=== PATIENT | male | born 1950 | race American Indian/Alaskan Native ===

== ENCOUNTER 2017-12-27 20:26 | Emergency (ER) | payer MEDICARE ==
[2017-12-27 21:19] LABS: Basophils % (Auto) 0.3 % (0.0-1.8); Eosinophils % (Auto) 0.2 % (0.0-4.3); Hematocrit 35.2 % (35.5-45.6); Hemoglobin 11.9 gm/dl (11.8-15.2); Lymphocytes # (Auto) 1.1 K/mm3 (1.2-5.4); Lymphocytes % (Auto) 21.6 % (13.4-35.0); Mean Corpuscular HGB Conc 34 % (32-34); Mean Corpuscular Hemoglobin 27 pg (28-32); Mean Corpuscular Volume 80 fl (84-94); Monocytes # (Auto) 0.6 K/mm3 (0.0-0.8); Monocytes % (Auto) 11.9 % (0.0-7.3); Platelet Count 156 K/mm3 (140-440); Red Cell Distribution Width 15.1 % (13.2-15.2)
[2017-12-27 21:26] LABS: BUN/Creatinine Ratio 17; Blood Urea Nitrogen 10 mg/dL (9-20); Hemolysis Index 1
[2017-12-27 21:31] LABS: Bilirubin,Urine NEG (Negative); Blood,Urine NEG (Negative); Color,Urine Yellow (Yellow); Mucus,Urine 2+ /HPF
[2017-12-27 21:43] LABS: Amphetamine Screen,Urine PRESUMPTIVE NEGATIVE; Benzodiazepines Screen,Urine PRESUMPTIVE NEGATIVE; Cannabinoid Screen,Urine PRESUMPTIVE NEGATIVE; Cocaine Screen,Urine PRESUMPTIVE NEGATIVE; Methadone Screen,Urine PRESUMPTIVE NEGATIVE; Opiate Screen,Urine PRESUMPTIVE NEGATIVE
--- NOTE | 2017-12-28 05:29 | Emergency Department Report ---
ED Medical Clearance HPI - General Chief complaint: Medical Clearance Stated complaint: MEDICAL EVAL Time Seen by Provider: 12/28/17 05:09 Source: patient, family Mode of arrival: Ambulatory - History of Present Illness Initial comments: 67-year-old man with history of schizophrenia, is brought in by family members with report that he has not been taking his medication over the past several days, because his sister is his education provider, and she herself has been hospitalized, and no one has been given patient his medication in the meantime. He has become increasingly agitated and disruptive, but not frankly psychotic. He has been accepted at [facility], pending medical clearance. He is not having any acute symptoms, but incidentally notes that these been having some fresh blood in his stool, primarily on wiping. Other past medical history is significant for type 2 diabetes, controlled with medication, as well as hypercholesterolemia, and hypertension. He also has a history of coronary artery disease, but this is relatively stable, with his myocardial infarction occurring approximately 9 years ago, and patient underwent bypass surgery approximately 3 years ago. He says he needs a pacemaker, but this has not yet been scheduled with his cooling pan tender. He has not been having any pains, no palpitations or flutter, no shortness of breath, and has not been expansion any swelling of extremities. Home medications: Home Medications Medication Instructions Recorded Confirmed Last Taken Mirtazapine 15 mg PO HS 04/08/16 04/25/16 06/07/16 Zolpidem [Ambien] 10 mg PO QHS PRN 04/08/16 04/25/16 06/07/16 diphenhydrAMINE [Benadryl CAP] 50 mg PO HS 04/08/16 04/25/16 06/07/16 risperiDONE [RisperiDONE] 2 mg PO QDAY 04/08/16 04/25/16 06/07/16 Lisinopril [Zestril TAB] 40 mg PO QDAY 04/12/16 04/25/16 06/07/16 Previous Rx's Medication Instructions Recorded Last Taken Type Sertraline [Zoloft] 100 mg PO QDAY #30 tablet 12/10/14 06/07/16 Rx glipiZIDE [Glucotrol] 5 mg PO BID #60 tablet 12/10/14 06/07/16 Rx Aspirin [Aspirin BABY CHEW TAB] 81 mg PO QDAY #30 tab.chew 12/13/14 06/07/16 Rx Benztropine [Cogentin] 1 mg PO BID #60 tablet 12/13/14 06/07/16 Rx Carvedilol [Coreg] 25 mg PO BID #60 tablet 12/13/14 06/07/16 Rx ISOSORBIDE MONOnitrate [Imdur ER] 60 mg PO QDAY #30 tablet 12/13/14 06/07/16 Rx Nitroglycerin [Nitrostat] 0.4 mg SL Q5M PRN #30 tab 12/13/14 06/07/16 Rx Rosuvastatin (Nf) [Crestor] 10 mg PO QHS #30 tablet 12/13/14 06/07/16 Rx Losartan [Cozaar] 25 mg PO DAILY #30 tablet 04/09/16 06/07/16 Rx Pantoprazole [Protonix TAB] 20 mg PO BID #60 tablet.dr 04/13/16 06/07/16 Rx Potassium Chloride [Klor-Con M20] 20 meq PO DAILY #15 tab.er.prt 12/28/17 Unknown Rx Allergies/Adverse reactions: Allergies Allergy/AdvReac Type Severity Reaction Status Date / Time No Known Allergies Allergy Verified 04/17/16 15:54 ED Review of Systems ROS: Stated complaint: MEDICAL EVAL Other details as noted in HPI Comment: All other systems reviewed and negative Constitutional: no symptoms reported ENT: denies: ear pain, throat pain Respiratory: denies: cough, shortness of breath, wheezing Cardiovascular: denies: chest pain, palpitations Endocrine: denies: excessive sweating, flushing Gastrointestinal: other (fresh blood with bowel movements). denies: abdominal pain, nausea, diarrhea Genitourinary: as per HPI Musculoskeletal: denies: back pain, joint swelling, arthralgia Skin: denies: rash, lesions Neurological: denies: headache, weakness, paresthesias Psychiatric: anxiety, other (agitation, behavioral disturbances). denies: suicidal thoughts Hematological/Lymphatic: denies: easy bleeding, easy bruising ED Past Medical Hx - Past Medical History Hx Hypertension: Yes Hx CVA: Yes Hx Heart Attack/AMI: Yes Hx Congestive Heart Failure: Yes Hx Diabetes: Yes Hx Seizures: Yes Hx Psychiatric Treatment: Yes (IP and OP tx, [place], [facility], [facility]/ ANXIETY / DEPRESSION) Hx Asthma: No Hx COPD: No Additional medical history: Cardiomyopathy. CAD with 50% LAD lesion. pacemaker - Surgical History Hx Pacemaker: Yes Hx Internal Defibrillator: Yes (pacemaker) Hx Appendectomy: Yes Additional Surgical History: R foot surgery /OPEN HEART - Social History Smoking Status: Never Smoker Substance Use Type: None - Medications Home Medications: Home Medications Medication Instructions Recorded Confirmed Last Taken Type Sertraline [Zoloft] 100 mg PO QDAY #30 tablet 12/10/14 04/25/16 06/07/16 Rx glipiZIDE [Glucotrol] 5 mg PO BID #60 tablet 12/10/14 04/25/16 06/07/16 Rx Aspirin [Aspirin BABY CHEW TAB] 81 mg PO QDAY #30 tab.chew 12/13/14 04/25/1605/13 Rx Benztropine [Cogentin] 1 mg PO BID #60 tablet 12/13/14 04/25/16 06/07/16 Rx Carvedilol [Coreg] 25 mg PO BID #60 tablet 12/13/14 04/25/16 06/07/16 Rx ISOSORBIDE MONOnitrate [Imdur ER] 60 mg PO QDAY #30 tablet 12/13/14 04/25/1605/13 Rx Nitroglycerin [Nitrostat] 0.4 mg SL Q5M PRN #30 tab 12/13/14 04/25/16 06/07/16 Rx Rosuvastatin (Nf) [Crestor] 10 mg PO QHS #30 tablet 12/13/14 04/25/16 06/07/16 Rx Mirtazapine 15 mg PO HS 04/08/16 04/25/16 06/07/16 History Zolpidem [Ambien] 10 mg PO QHS PRN 04/08/16 04/25/16 06/07/16 History diphenhydrAMINE [Benadryl CAP] 50 mg PO HS 04/08/16 04/25/16 06/07/16 History risperiDONE [RisperiDONE] 2 mg PO QDAY 04/08/16 04/25/16 06/07/16 History Losartan [Cozaar] 25 mg PO DAILY #30 tablet 04/09/16 04/25/16 06/07/16 Rx Lisinopril [Zestril TAB] 40 mg PO QDAY 04/12/16 04/25/16 06/07/16 History Pantoprazole [Protonix TAB] 20 mg PO BID #60 tablet. 04/13/16 04/25/16 Rx Potassium Chloride [Klor-Con M20] 20 meq PO DAILY #15 tab.er.prt 12/28/17 Unknown Rx ED Physical Exam - General Limitations: Physical Limitation General appearance: alert, in no apparent distress - Head Head exam: Present: atraumatic, normocephalic - Eye Eye exam: Present: PERRL, EOMI - ENT ENT exam: Present: normal exam - Neck Neck exam: Present: normal inspection, full ROM. Absent: tenderness, meningismus - Respiratory Respiratory exam: Present: normal lung sounds bilaterally. Absent: respiratory distress, wheezes, rales - Cardiovascular Cardiovascular Exam: Present: regular rate, other (midline sternotomy scar, well -healed, nontender) - GI/Abdominal GI/Abdominal exam: Present: soft. Absent: distended, tenderness, guarding, rebound - Rectal Rectal exam: Present: hemorrhoids - Extremities Exam Extremities exam: Present: normal inspection. Absent: tenderness, pedal edema, calf tenderness ED Course Vital Signs 12/27/17 12/27/17 12/28/17 20:28 20:35 03:10 Temperature 98.6 F 98.6 F Pulse Rate 89 86 Respiratory 14 16 20 Rate Blood Pressure 140/77 Blood Pressure 140/77 [Left] O2 Sat by Pulse 100 100 97 Oximetry 12/28/17 03:14 Temperature 98.1 F Pulse Rate 94 H Respiratory 20 Rate Blood Pressure 158/85 Blood Pressure [Left] O2 Sat by Pulse 92 Oximetry ED Medical Decision Making - Lab Data Result diagrams: 12/27/17 20:55 12/27/17 21:00 - Medical Decision Making Patient is clinically stable, but has a significant hypokalemia, and it is not clear the source, as patient's medication record does not show any diuretic medication. Furthermore, patient's medications that he presents with, are very few, and much less than what is listed in his medication reconciliation. In any case, there is no diuretic noted. Patient will need some repletion of his potassium before he is stable for psychiatric clearance, and patient rehydrated with saline, with replenishment of potassium, and patient's electrolytes will be repeated prior to medical clearance. He will be discharged on potassium supplementation as well as his usual medications. ED Disposition Clinical Impression: Medical clearance for psychiatric admission, Hypokalemia Hypertension Qualifiers: Hypertension type: essential hypertension Qualified Code(s): I10 - Essential ( primary) hypertension Schizophrenia Qualifiers: Schizophrenia type: unspecified Qualified Code(s): F20.9 - Schizophrenia, unspecified Disposition: DC-01 TO HOME OR SELFCARE Is pt being admited?: No Does the pt Need Aspirin: No Condition: Stable Instructions: Hypertension (ED) Additional Instructions: We have evaluated you for medical clearance for psychiatric admission, but her potassium was low. We have given you medication for potassium, and are discharged in you on potassium supplementation as well. With this medication, your stable for discharge and can proceed with psychiatric admission. Continue your other medications as before. Prescriptions: Potassium Chloride [Klor-Con M20] 20 meq PO DAILY #15 tab.er.prt Referrals: RILEY MORRELL MD [Primary Care Provider] - 3-5 Days Time of Disposition: 05:33
[2017-12-28] MEDS ORDERED: NS/KCL 20MEQ 20 MEQ/1,000 ML BAG IV SCH (06:00)
[2017-12-28] MEDS ORDERED: TYLENOL ONE (06:06)
[2017-12-28] MEDS ORDERED: TYLENOL PO ONE (06:13)
[2017-12-28 07:52] LABS: BUN/Creatinine Ratio 12; Blood Urea Nitrogen 7 mg/dL (9-20); Calcium 8.5 mg/dL (8.4-10.2); Hemolysis Index 8
[2017-12-28] MEDS ORDERED: KCL 10MEQ/100ML 10 MEQ/100 ML BAG IV SCH (09:00)
[2017-12-28 11:50] LABS: BUN/Creatinine Ratio 10; Blood Urea Nitrogen 6 mg/dL (9-20); Calcium 8.4 mg/dL (8.4-10.2); Hemolysis Index 4
[2017-12-28 12:58] LABS: BUN/Creatinine Ratio 10; Blood Urea Nitrogen 6 mg/dL (9-20); Calcium 8.7 mg/dL (8.4-10.2); Hemolysis Index 10
[2017-12-28 14:12] VITALS: BP 155/80
== END 2017-12-28 14:12 | disposition home or self-care (01) ==
LOC: ED 20:26
DX: E87.6 Hypokalemia (principal); F20.9 Schizophrenia, unspecified; I10 Essential (primary) hypertension; I25.2 Old myocardial infarction
CPT/HCPCS: 36415; 80048; 80307; 81001; 85025; 96365; 96366; 99283; G0480; J3480; 80320

== ENCOUNTER 2017-12-28 14:59 | Emergency (ER) | payer MEDICARE ==
--- NOTE | 2017-12-28 17:48 | Emergency Department Report ---
HPI - General Chief Complaint: Medical Clearance Time Seen by Provider: 12/28/17 17:33 - HPI HPI: Room 26 The patient is a 67-year-old male presenting with a chief complaint of needing a "mental health exam." The patient reportedly brought in yesterday by family for medical clearance and transfer was 4 management of schizophrenia (see previous providers note). Reportedly the patient was discharged yesterday to [facility] for the patient was symptomatic secondary to lack of mental health evaluation. Patient denies suicidal or homicidal ideation. Patient denies auditory or visual hallucinations. Location: [See above] Duration: [See above] Quality: [See above] Severity: [See above] Modifying factors: [see above] Context: [see above] Mode of transportation: [not driving] ED Past Medical Hx - Past Medical History Hx Hypertension: Yes Hx CVA: Yes Hx Heart Attack/AMI: Yes Hx Congestive Heart Failure: Yes Hx Diabetes: Yes Hx Seizures: Yes Hx Psychiatric Treatment: Yes (IP and OP tx, [place], [facility], [facility]/ ANXIETY / DEPRESSION/schizophrenia) Additional medical history: Cardiomyopathy. CAD with 50% LAD lesion. pacemaker - Surgical History Hx Pacemaker: Yes Hx Internal Defibrillator: Yes (pacemaker) Hx Appendectomy: Yes Additional Surgical History: R foot surgery /OPEN HEART - Family History Family history: no significant - Social History Smoking Status: Former Smoker (none 4 years) Substance Use Type: None (denies illicit drug use) - Medications Home Medications: Home Medications Medication Instructions Recorded Confirmed Last Taken Type Sertraline [Zoloft] 100 mg PO QDAY #30 tablet 12/10/14 04/25/16 06/07/16 Rx glipiZIDE [Glucotrol] 5 mg PO BID #60 tablet 12/10/14 04/25/16 06/07/16 Rx Aspirin [Aspirin BABY CHEW TAB] 81 mg PO QDAY #30 tab.chew 12/13/14 04/25/1605/13 Rx Benztropine [Cogentin] 1 mg PO BID #60 tablet 12/13/14 04/25/16 06/07/16 Rx Carvedilol [Coreg] 25 mg PO BID #60 tablet 12/13/14 04/25/16 06/07/16 Rx ISOSORBIDE MONOnitrate [Imdur ER] 60 mg PO QDAY #30 tablet 12/13/14 04/25/1605/13 Rx Nitroglycerin [Nitrostat] 0.4 mg SL Q5M PRN #30 tab 12/13/14 04/25/16 06/07/16 Rx Rosuvastatin (Nf) [Crestor] 10 mg PO QHS #30 tablet 12/13/14 04/25/16 06/07/16 Rx Mirtazapine 15 mg PO HS 04/08/16 04/25/16 06/07/16 History Zolpidem [Ambien] 10 mg PO QHS PRN 04/08/16 04/25/16 06/07/16 History diphenhydrAMINE [Benadryl CAP] 50 mg PO HS 04/08/16 04/25/16 06/07/16 History risperiDONE [RisperiDONE] 2 mg PO QDAY 04/08/16 04/25/16 06/07/16 History Losartan [Cozaar] 25 mg PO DAILY #30 tablet 04/09/16 04/25/16 06/07/16 Rx Lisinopril [Zestril TAB] 40 mg PO QDAY 04/12/16 04/25/16 06/07/16 History Pantoprazole [Protonix TAB] 20 mg PO BID #60 tablet. 04/13/16 04/25/16 Rx Potassium Chloride [Klor-Con M20] 20 meq PO DAILY #15 tab.er.prt 12/28/17 Unknown Rx ED Review of Systems ROS: Stated complaint: MH Other details as noted in HPI Constitutional: no symptoms reported Psychiatric: denies: auditory hallucinations, visual hallucinations, homicidal thoughts, suicidal thoughts Physical Exam - Physical Exam Vital Signs: Vital Signs 12/28/17 15:35 Temperature 98.6 F Pulse Rate 92 H Respiratory 18 Rate Blood Pressure 143/84 O2 Sat by Pulse 97 Oximetry Physical Exam: GENERAL: The patient is well-developed well-nourished male lying on stretcher and underwear not appear to be in acute distress. [] HEENT: Normocephalic. Atraumatic. Extraocular motions are intact. Patient has moist mucous membranes. NECK: Supple. Trachea midline CHEST/LUNGS: Clear to auscultation. There is no respiratory distress noted. HEART/CARDIOVASCULAR: Regular. There is no tachycardia. There is no gallop rub or murmur. ABDOMEN: Abdomen is soft, nontender. Patient has normal bowel sounds. There is no abdominal distention. SKIN: There is no rash. There is no edema. There is no diaphoresis. NEURO: The patient is awake and alert. The patient is cooperative. The patient has normal speech MUSCULOSKELETAL: There is no evidence of acute injury. ED Course Vital Signs 12/28/17 15:35 Temperature 98.6 F Pulse Rate 92 H Respiratory 18 Rate Blood Pressure 143/84 O2 Sat by Pulse 97 Oximetry - Consultations Consultation #1: 12/28/17 22:05 Patient seen and assessed by mental health crop consultant-does not meet inpatient criteria. Patient may be discharged home ED Medical Decision Making - Lab Data Labs from previous visit (less than 24 hours ago) reviewed - Differential Diagnosis schizophrenia Critical care attestation.: If time is entered above; I have spent that time in minutes in the direct care of this critically ill patient, excluding procedure time. ED Disposition Clinical Impression: Schizophrenia Disposition: DC-01 TO HOME OR SELFCARE Is pt being admited?: No Does the pt Need Aspirin: No Condition: Stable Instructions: Schizophrenia (ED) Additional Instructions: Return to the emergency department immediately should you develop worsening symptoms, fever, inability to tolerate food or liquid or any other concerns. Referrals: PRIMARY CARE, [Primary Care Provider[facility] Time of Disposition: 22:06
[2017-12-28 23:46] VITALS: BP 158/93
== END 2017-12-28 23:46 | disposition home or self-care (01) ==
LOC: ED 14:59
DX: F20.9 Schizophrenia, unspecified (principal); I25.2 Old myocardial infarction; I50.9 Heart failure, unspecified; E11.9 Type 2 diabetes mellitus without complications; F41.9 Anxiety disorder, unspecified; F32.9 Major depressive disorder, single episode, unspecified; Z95.0 Presence of cardiac pacemaker; Z87.891 Personal history of nicotine dependence; Z79.82 Long term (current) use of aspirin; Z86.73 Personal history of transient ischemic attack (TIA), and cerebral infarction without residual deficits
CPT/HCPCS: 99283

== ENCOUNTER 2019-02-11 04:12 | Emergency (ER) | payer MEDICARE ==
[2019-02-11] MEDS ORDERED: ATIVAN PO ONE (04:26)
--- NOTE | 2019-02-11 05:01 | XRay Report ---
CHEST 1 VIEW INDICATION / CLINICAL INFORMATION: palpitations. COMPARISON: None available. FINDINGS: SUPPORT DEVICES: ICD on the left. HEART / MEDIASTINUM: Heart size is normal. The thoracic aorta is tortuous. LUNGS / PLEURA: No significant pulmonary or pleural abnormality. No pneumothorax. ADDITIONAL FINDINGS: No significant additional findings. IMPRESSION: 1. No acute findings. Signer Name: Gonzales Oneal MD Signed: 02/11/2019 4:56 AM Workstation Name: [id number]
--- NOTE | 2019-02-11 05:08 | Emergency Department Report ---
ED Psych HPI - General Chief Complaint: Medical Clearance Stated Complaint: MH Time Seen by Provider: 02/11/19 04:25 Source: EMS Mode of arrival: Stretcher - History of Present Illness Initial Comments: Patient is a 68-year-old -N[place]alese male with a past medical history of coronary disease and recent pacemaker placement diabetes hypertension as well as anxiety and depression. Patient states he is very upset about all of his multiple medical problems. Tonight he became very shaky and tremulous and felt as though he couldn't control his body. Patient has palpitations and felt as though his heart was racing. Patient denies nausea vomiting diarrhea fevers chills, cold or congestion at this time. MD Complaint: feels depressed - Related Data Home Medications Medication Instructions Recorded Confirmed Last Taken Mirtazapine 15 mg PO HS 04/08/16 04/25/16 06/07/16 Zolpidem [Ambien] 10 mg PO QHS PRN 04/08/16 04/25/16 06/07/16 diphenhydrAMINE [Benadryl CAP] 50 mg PO HS 04/08/16 04/25/16 06/07/16 risperiDONE [RisperiDONE] 2 mg PO QDAY 04/08/16 04/25/16 06/07/16 Lisinopril [Zestril TAB] 40 mg PO QDAY 04/12/16 04/25/16 06/07/16 Previous Rx's Medication Instructions Recorded Last Taken Type Sertraline [Zoloft] 100 mg PO QDAY #30 tablet 12/10/14 06/07/16 Rx glipiZIDE [Glucotrol] 5 mg PO BID #60 tablet 12/10/14 06/07/16 Rx Aspirin [Aspirin BABY CHEW TAB] 81 mg PO QDAY #30 tab.chew 12/13/14 06/07/16 Rx Benztropine [Cogentin] 1 mg PO BID #60 tablet 12/13/14 06/07/16 Rx Carvedilol [Coreg] 25 mg PO BID #60 tablet 12/13/14 06/07/16 Rx ISOSORBIDE MONOnitrate [Imdur ER] 60 mg PO QDAY #30 tablet 12/13/14 06/07/16 Rx Nitroglycerin [Nitrostat] 0.4 mg SL Q5M PRN #30 tab 12/13/14 06/07/16 Rx Rosuvastatin (Nf) [Crestor] 10 mg PO QHS #30 tablet 12/13/14 06/07/16 Rx Losartan [Cozaar] 25 mg PO DAILY #30 tablet 04/09/16 06/07/16 Rx Pantoprazole [Protonix TAB] 20 mg PO BID #60 tablet. 04/13/16 06/07/16 Rx Potassium Chloride [Klor-Con M20] 20 meq PO DAILY #15 tab.er.prt 12/28/17 Unknown Rx Allergies Allergy/AdvReac Type Severity Reaction Status Date / Time No Known Allergies Allergy Verified 04/17/16 15:54 ED Review of Systems ROS: Stated complaint: MH Other details as noted in HPI Comment: All other systems reviewed and negative ED Past Medical Hx - Past Medical History Previous Medical History?: Yes Hx Hypertension: Yes Hx CVA: Yes Hx Heart Attack/AMI: Yes Hx Congestive Heart Failure: Yes Hx Diabetes: Yes Hx Seizures: Yes Hx Psychiatric Treatment: Yes (IP and OP tx, [place], [facility], [place]/ ANXIETY / DEPRESSION/schizophrenia) Hx Asthma: No Hx COPD: No Additional medical history: Cardiomyopathy. CAD with 50% LAD lesion. pacemaker - Surgical History Past Surgical History?: Yes Hx Pacemaker: Yes Hx Internal Defibrillator: Yes (pacemaker) Hx Appendectomy: Yes Additional Surgical History: R foot surgery /OPEN HEART - Social History Smoking Status: Never Smoker Substance Use Type: None - Medications Home Medications: Home Medications Medication Instructions Recorded Confirmed Last Taken Type Sertraline [Zoloft] 100 mg PO QDAY #30 tablet 12/10/14 04/25/16 06/07/16 Rx glipiZIDE [Glucotrol] 5 mg PO BID #60 tablet 12/10/14 04/25/16 06/07/16 Rx Aspirin [Aspirin BABY CHEW TAB] 81 mg PO QDAY #30 tab.chew 12/13/14 04/25/16 06/07/16 Rx Benztropine [Cogentin] 1 mg PO BID #60 tablet 12/13/14 04/25/16 06/07/16 Rx Carvedilol [Coreg] 25 mg PO BID #60 tablet 12/13/14 04/25/16 06/07/16 Rx ISOSORBIDE MONOnitrate [Imdur ER] 60 mg PO QDAY #30 tablet 12/13/14 04/25/16 06/07/16 Rx Nitroglycerin [Nitrostat] 0.4 mg SL Q5M PRN #30 tab 12/13/14 04/25/16 06/07/16 Rx Rosuvastatin (Nf) [Crestor] 10 mg PO QHS #30 tablet 12/13/14 04/25/16 06/07/16 Rx Mirtazapine 15 mg PO HS 04/08/16 04/25/16 06/07/16 History Zolpidem [Ambien] 10 mg PO QHS PRN 04/08/16 04/25/16 06/07/16 History diphenhydrAMINE [Benadryl CAP] 50 mg PO HS 04/08/16 04/25/16 06/07/16 History risperiDONE [RisperiDONE] 2 mg PO QDAY 04/08/16 04/25/16 06/07/16 History Losartan [Cozaar] 25 mg PO DAILY #30 tablet 04/09/16 04/25/16 06/07/16 Rx Lisinopril [Zestril TAB] 40 mg PO QDAY 04/12/16 04/25/16 06/07/16 History Pantoprazole [Protonix TAB] 20 mg PO BID #60 tablet.dr 04/13/16 04/25/16 06/07/16 Rx Potassium Chloride [Klor-Con M20] 20 meq PO DAILY #15 tab.er.prt 12/28/17 Unknown Rx ED Physical Exam - General Limitations: No Limitations General appearance: alert, in no apparent distress - Head Head exam: Present: atraumatic, normocephalic - Eye Eye exam: Present: normal appearance - ENT ENT exam: Present: mucous membranes moist - Neck Neck exam: Present: normal inspection - Respiratory Respiratory exam: Present: normal lung sounds bilaterally, chest wall tenderness (patient has zhou over a wound on the left anterior chest where he recently had a pacemaker placed). Absent: respiratory distress, wheezes, rales - Cardiovascular Cardiovascular Exam: Present: regular rate, normal rhythm. Absent: systolic murmur, diastolic murmur, rubs, gallop - GI/Abdominal GI/Abdominal exam: Present: soft, normal bowel sounds. Absent: distended, tenderness, guarding, rebound - Rectal Rectal exam: Present: deferred - Extremities Exam Extremities exam: Present: normal inspection - Back Exam Back exam: Present: normal inspection - Neurological Exam Neurological exam: Present: alert, oriented X3 - Psychiatric Psychiatric exam: Present: normal affect, normal mood - Skin Skin exam: Present: warm, dry, intact, normal color. Absent: rash ED Course Vital Signs 02/11/19 02/11/19 02/11/19 04:21 05:00 05:23 Temperature 97.9 F Pulse Rate 90 Respiratory 19 19 Rate Blood Pressure 171/99 167/87 Blood Pressure [Left] O2 Sat by Pulse 98 99 100 Oximetry 02/11/19 02/11/19 02/11/19 07:05 08:00 09:00 Temperature Pulse Rate 87 86 90 Respiratory 18 22 16 Rate Blood Pressure 156/81 138/89 Blood Pressure 162/81 [Left] O2 Sat by Pulse 98 100 100 Oximetry 02/11/19 02/11/19 02/11/19 10:01 11:26 12:00 Temperature Pulse Rate 84 87 72 Respiratory 18 18 22 Rate Blood Pressure 121/71 141/80 Blood Pressure 110/63 [Left] O2 Sat by Pulse 99 100 100 Oximetry 02/11/19 02/11/19 02/11/19 13:00 14:00 15:01 Temperature Pulse Rate 81 81 Respiratory 15 14 Rate Blood Pressure 161/86 125/60 142/55 Blood Pressure [Left] O2 Sat by Pulse 99 98 100 Oximetry 02/11/19 02/11/19 16:01 17:00 Temperature Pulse Rate Respiratory Rate Blood Pressure 141/74 139/74 Blood Pressure [Left] O2 Sat by Pulse 99 99 Oximetry ED Medical Decision Making - Lab Data Result diagrams: 02/11/19 04:46 02/11/19 04:46 Lab Results 02/11/19 02/11/19 02/11/19 Range/Units 04:46 04:46 04:46 WBC 4.5 (4.5-11.0) K/mm3 RBC 4.64 (3.65-5.03) M/mm3 Hgb 12.8 (11.8-15.2) gm/dl Hct 38.6 (35.5-45.6) % MCV 83 L (84-94) fl MCH 28 (28-32) pg MCHC 33 (32-34) % RDW 13.9 (13.2-15.2) % Plt Count 144 (140-440) K/mm3 Lymph % (Auto) 19.6 (13.4-35.0) % [place] % (Auto) 8.7 H (0.0-7.3) % Eos % (Auto) 0.8 (0.0-4.3) % Baso % (Auto) 0.4 (0.0-1.8) % Lymph # 0.9 L (1.2-5.4) K/mm3 [place] # 0.4 (0.0-0.8) K/mm3 Eos # 0.0 (0.0-0.4) K/mm3 Baso # 0.0 (0.0-0.1) K/mm3 Seg Neutrophils % 70.5 H (40.0-70.0) % Seg Neutrophils # 3.2 (1.8-7.7) K/mm3 Sodium 142 (137-145) mmol/L Potassium 3.4 L (3.6-5.0) mmol/L Chloride 103.3 (98-107) mmol/L Carbon Dioxide 25 (22-30) mmol/L Anion Gap 17 mmol/L BUN 14 (9-20) mg/dL Creatinine 0.9 (0.8-1.5) mg/dL Estimated GFR > 60 ml/min BUN/Creatinine Ratio 16 % Glucose 160 H (75-100) mg/dL Calcium 9.1 (8.4-10.2) mg/dL Troponin T < 0.010 (0.00-0.029) ng/mL Acetaminophen < 5.0 L (10.0-30.0) ug/mL Plasma/Serum Alcohol (0-0.07) % 02/11/19 Range/Units 04:46 WBC (4.5-11.0) K/mm3 RBC (3.65-5.03) M/mm3 Hgb (11.8-15.2) gm/dl Hct (35.5-45.6) % MCV (84-94) fl MCH (28-32) pg MCHC (32-34) % RDW (13.2-15.2) % Plt Count (140-440) K/mm3 Lymph % (Auto) (13.4-35.0) % [place] % (Auto) (0.0-7.3) % Eos % (Auto) (0.0-4.3) % Baso % (Auto) (0.0-1.8) % Lymph # (1.2-5.4) K/mm3 [place] # (0.0-0.8) K/mm3 Eos # (0.0-0.4) K/mm3 Baso # (0.0-0.1) K/mm3 Seg Neutrophils % (40.0-70.0) % Seg Neutrophils # (1.8-7.7) K/mm3 Sodium (137-145) mmol/L Potassium (3.6-5.0) mmol/L Chloride (98-107) mmol/L Carbon Dioxide (22-30) mmol/L Anion Gap mmol/L BUN (9-20) mg/dL Creatinine (0.8-1.5) mg/dL Estimated GFR ml/min BUN/Creatinine Ratio % Glucose (75-100) mg/dL Calcium (8.4-10.2) mg/dL Troponin T (0.00-0.029) ng/mL Acetaminophen (10.0-30.0) ug/mL Plasma/Serum Alcohol < 0.01 (0-0.07) % - EKG Data -: EKG Interpreted by Nv - EKG Data 02/11/19 06:21 EKG shows a atrial sensed ventricular paced rhythm with a rate of 88. [place] is extreme rightward interval showed a prolonged QT and widening QRS. T waves are inverted laterally. - Medical Decision Making 02/11/19 @4718 Patient is 68-year-old Male who has multiple medical problems but states to myself that he is. Nervous and anxious and couldn't control his shaking. Patient told our mental health wood repatcher that his family is trying to kill him and he is in danger. [facility] has been involved and his care recently. Decision made to place the patient on a hold. Emergency department until case management can see him. Patient is not homicidal suicidal attempt 13 has not been initiated at this time. Critical care attestation.: If time is entered above; I have spent that time in minutes in the direct care of this critically ill patient, excluding procedure time. ED Disposition Clinical Impression: Depression Disposition: DC-01 TO HOME OR SELFCARE Is pt being admited?: No Condition: Stable Referrals: [facility], MD [Primary Care Provider] - 3-5 Days
[2019-02-11 05:22] LABS: Basophils % (Auto) 0.4 % (0.0-1.8); Eosinophils % (Auto) 0.8 % (0.0-4.3); Hematocrit 38.6 % (35.5-45.6); Hemoglobin 12.8 gm/dl (11.8-15.2); Lymphocytes # (Auto) 0.9 K/mm3 (1.2-5.4); Lymphocytes % (Auto) 19.6 % (13.4-35.0); Mean Corpuscular HGB Conc 33 % (32-34); Mean Corpuscular Volume 83 fl (84-94); Monocytes # (Auto) 0.4 K/mm3 (0.0-0.8); Monocytes % (Auto) 8.7 % (0.0-7.3); Platelet Count 144 K/mm3 (140-440); Red Blood Count 4.64 M/mm3 (3.65-5.03); Red Cell Distribution Width 13.9 % (13.2-15.2)
[2019-02-11 05:44] LABS: BUN/Creatinine Ratio 16; Blood Urea Nitrogen 14 mg/dL (9-20); Calcium 9.1 mg/dL (8.4-10.2); Hemolysis Index 10
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
[2019-02-11 19:00] VITALS: BP 139/74
== END 2019-02-11 19:00 | disposition home or self-care (01) ==
LOC: ED 04:12
DX: F32.9 Major depressive disorder, single episode, unspecified (principal); F41.9 Anxiety disorder, unspecified; F20.9 Schizophrenia, unspecified; E11.9 Type 2 diabetes mellitus without complications; I11.0 Hypertensive heart disease with heart failure; I50.9 Heart failure, unspecified; I25.2 Old myocardial infarction; Z86.73 Personal history of transient ischemic attack (TIA), and cerebral infarction without residual deficits; Z95.0 Presence of cardiac pacemaker; Z90.49 Acquired absence of other specified parts of digestive tract; Z98.890 Other specified postprocedural states; Z79.82 Long term (current) use of aspirin; Z79.899 Other long term (current) drug therapy
CPT/HCPCS: 36415; 71045; 80048; 80320; 84484; 85025; 93005; 93010; 99284; G0480

== ENCOUNTER 2020-01-25 12:34 | Emergency (ER) | payer MEDICARE ==
[2020-01-25 14:29] LABS: Basophils % (Auto) 0.7 % (0.0-1.8); Hemoglobin 13.6 gm/dl (11.8-15.2); Lymphocytes # (Auto) 0.9 K/mm3 (1.2-5.4); Lymphocytes % (Auto) 14.4 % (13.4-35.0); Mean Corpuscular HGB Conc 34 % (32-34); Mean Corpuscular Volume 85 fl (84-94); Monocytes # (Auto) 0.5 K/mm3 (0.0-0.8); Monocytes % (Auto) 8.3 % (0.0-7.3); Platelet Count 163 K/mm3 (140-440); Red Blood Count 4.73 M/mm3 (3.65-5.03); Red Cell Distribution Width 15.2 % (13.2-15.2)
--- NOTE | 2020-01-25 14:34 | XRay Report ---
CHEST 1 VIEW INDICATION: Chest pain. COMPARISON: 02/11/2019 FINDINGS: Support devices: A multilead pacemaker device is in position. Heart: Within normal limits. Lungs/Pleura: No acute air space or interstitial disease. Additional findings: None. IMPRESSION: No acute findings. Signer Name: Diaz Marks Jr, MD Signed: 01/25/2020 2:30 PM Workstation Name: [id number]
[2020-01-25 14:41] LABS: INR 1.17 (0.87-1.13)
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
[2020-01-25 15:08] LABS: Alanine Aminotransferase 44 units/L (7-56); BUN/Creatinine Ratio 13; Blood Urea Nitrogen 10 mg/dL (9-20); Calcium 9.7 mg/dL (8.4-10.2)
[2020-01-25 15:09] LABS: Albumin 4.4 g/dL (3.9-5)
[2020-01-25] MEDS ORDERED: METOPROLOL TARTRATE 50 MG TAB PO ONE (15:14)
[2020-01-25] MEDS ORDERED: ASPIRIN 81 MG TAB CHEW PO ONE (15:15)
[2020-01-25] MEDS ORDERED: hydrALAZINE 20 MG/1 ML INJ IV ONE (17:34)
--- NOTE | 2020-01-25 19:10 | Cat Scan Report ---
CTA CHEST WITH IV CONTRAST INDICATION: Shortness of breath and chest pain, duration one week CONTRAST: 100 cc Omnipaque 350 IV COMPARISON: Portable chest x-ray today Three-plane MIP reconstructions were produced. All CT scans at this location are performed using CT d ose reduction for [employer] by means of automated exposure control. FINDINGS: Median sternotomy changes are seen. A single well-defined small sclerotic area in a lower t horacic vertebral body without other similar lesions probably is a bone island. Pacer is noted. No significant axillary or chest wall lesions are seen. Visualized portions of the upper abdomen show no acute abnormalities. No pleural effusions are seen. No mediastinal or hilar masses are noted. No pneumothorax or pneumomediastinum are seen. No endobronchial lesions are noted. Lung das are clear of significant infiltrates, nodules, or masses. Aorta shows no aneurysmal dilatation or evidence of dissection. Good opacification of the pulmonary arterial system was achieved. I do not see evidence of pulmonary thromboembolism. IMPRESSION: Negative study Signer Name: Justice Tinajero MD Signed: 01/25/2020 7:05 PM Workstation Name: [id number]
[2020-01-25 20:08] VITALS: BP 169/81
== END 2020-01-25 20:08 | disposition home or self-care (01) ==
LOC: ED 12:34
DX: R07.89 Other chest pain (principal); R00.2 Palpitations; R06.02 Shortness of breath; I11.0 Hypertensive heart disease with heart failure; I50.9 Heart failure, unspecified; I25.2 Old myocardial infarction; E11.9 Type 2 diabetes mellitus without complications; R56.9 Unspecified convulsions; Z90.49 Acquired absence of other specified parts of digestive tract; Z86.73 Personal history of transient ischemic attack (TIA), and cerebral infarction without residual deficits; Z79.899 Other long term (current) drug therapy
CPT/HCPCS: 36415; 71045; 71275; 80053; 84443; 84484; 85025; 85379; 85610; 93005; 96374; 99285; J0360; Q9967

== ENCOUNTER 2020-10-22 15:44 | Emergency (ER) | payer MEDICARE ==
--- NOTE | 2020-10-22 16:29 | Event Note ---
ED Screening Note Date of service: 10/22/20 Time: 16:23 ED Screening Note: 69-year-old -Tunisian male with extensive past medical history of congestive heart failure, diabetes, heart attack, hypertension with stents and pacemaker. Presents to the emergency room for 1-1/2 weeks of chest pain and 2 weeks of toe infection of the right and left great toe. This initial assessment/diagnostic orders/clinical plan/treatment(s) is/are subject to change based on patients health status, clinical progression and re- assessment by fellow clinical providers in the ED. Further treatment and workup at subsequent clinical providers discretion. Patient/guardian urged not to elope from the ED as their condition may be serious if not clinically assessed and managed. Initial orders include:
[2020-10-22 17:11] LABS: Basophils % (Auto) 0.4 % (0.0-1.8); Eosinophils # (Auto) 0.1 K/mm3 (0.0-0.4); Eosinophils % (Auto) 2.1 % (0.0-4.3); Hematocrit 40.5 % (35.5-45.6); Hemoglobin 13.6 gm/dl (11.8-15.2); Lymphocytes # (Auto) 2.2 K/mm3 (1.2-5.4); Lymphocytes % (Auto) 38.9 % (13.4-35.0); Mean Corpuscular HGB Conc 34 % (32-34); Mean Corpuscular Volume 83 fl (84-94); Monocytes # (Auto) 0.7 K/mm3 (0.0-0.8); Platelet Count 190 K/mm3 (140-440); Red Cell Distribution Width 14.5 % (13.2-15.2)
--- NOTE | 2020-10-22 17:14 | XRay Report ---
CHEST 2 VIEWS INDICATION / CLINICAL INFORMATION: Chest pain. COMPARISON: 01/25/2020. FINDINGS: SUPPORT DEVICES: Unchanged. HEART / MEDIASTINUM: Stable. LUNGS / PLEURA: No significant pulmonary or pleural abnormality. No pneumothorax. ADDITIONAL FINDINGS: No significant additional findings. IMPRESSION: No acute cardiopulmonary abnormality. Signer Name: Soham Hendrickson MD Signed: 10/22/2020 5:09 PM Workstation Name: [id number]
[2020-10-22 17:29] LABS: Alanine Aminotransferase 38 units/L (7-56); Albumin 4.4 g/dL (3.9-5); BUN/Creatinine Ratio 21; Blood Urea Nitrogen 19 mg/dL (9-20); Calcium 9.4 mg/dL (8.4-10.2); Hemolysis Index 3
--- NOTE | 2020-10-22 17:56 | Emergency Department Report ---
ED Chest Pain HPI - General Chief Complaint: Extremity Injury, Lower Stated Complaint: CHEST PAIN/TOENAIL INFECTED/DIABETIC Time Seen by Provider: 10/22/20 17:10 Source: patient Mode of arrival: Ambulatory Limitations: No Limitations - History of Present Illness Initial Comments: 69-year-old male, history of diabetes, CAD, hypertension, pacemaker, seizures, CHF, presents to ED with multiple complaints. First, patient reports possible infections of bilateral great toes. Patient reports the toenail is coming off of both toes. Patient states there is "infection underneath." Patient denies any fever, redness, purulent discharge. Patient is requesting that we remove his toenails. Also, patient is reporting some chest pain for the last 10 days. Patient states pain is left-sided, sharp in nature. He states the pain has been intermittent, lasting for approximately 2 seconds at a time and then resolving. He denies exertional pain. He denies any radiation of pain. He denies any associated shortness of breath, cough, fever, nausea or vomiting, leg pain or swelling. MD Complaint: chest pain -: week(s) (1.5) Onset: during rest Pain Location: left chest Pain Radiation: none Severity: moderate Quality: sharp Consistency: intermittent Improves With: nothing Worsens With: nothing re: denies: nausea, vomting, diaphoresis, dyspnea Other Symptoms: denies: cough, fever, leg swelling Treatments Prior to Arrival: nitroglycerin - Related Data Home Medications Medication Instructions Recorded Confirmed Last Taken Mirtazapine 15 mg PO HS 04/08/16 04/25/16 06/07/16 Zolpidem [Ambien] 10 mg PO QHS PRN 04/08/16 04/25/16 06/07/16 diphenhydrAMINE [Benadryl CAP] 50 mg PO HS 04/08/16 04/25/16 06/07/16 risperiDONE 2 mg PO QDAY 04/08/16 04/25/16 06/07/16 lisinopriL [Zestril TAB] 40 mg PO QDAY 04/12/16 04/25/16 06/07/16 Previous Rx's Medication Instructions Recorded Last Taken Type Sertraline [Zoloft] 100 mg PO QDAY #30 tablet 12/10/14 06/07/16 Rx glipiZIDE [Glucotrol] 5 mg PO BID #60 tablet 12/10/14 06/07/16 Rx Aspirin [Aspirin BABY CHEW TAB] 81 mg PO QDAY #30 tab.chew 12/13/14 06/07/16 Rx Benztropine [Cogentin] 1 mg PO BID #60 tablet 12/13/14 06/07/16 Rx ISOSORBIDE MONOnitrate [Imdur ER] 60 mg PO QDAY #30 tablet 12/13/14 06/07/16 Rx Nitroglycerin [Nitrostat] 0.4 mg SL Q5M PRN #30 tab 12/13/14 06/07/16 Rx Rosuvastatin (Nf) [Crestor] 10 mg PO QHS #30 tablet 12/13/14 06/07/16 Rx carvediloL [Coreg] 25 mg PO BID #60 tablet 12/13/14 06/07/16 Rx Losartan [Cozaar] 25 mg PO DAILY #30 tablet 04/09/16 06/07/16 Rx Pantoprazole [Protonix TAB] 20 mg PO BID #60 tablet.dr 04/13/16 06/07/16 Rx Potassium Chloride [Klor-Con M20] 20 meq PO DAILY #15 tab.er.prt 12/28/17 Unknown Rx Sulfamethoxazole/Trimethoprim 1 each PO BID 5 Days #10 tablet 10/22/20 Unknown Rx [Bactrim DS TAB] Allergies Allergy/AdvReac Type Severity Reaction Status Date / Time No Known Allergies Allergy Verified 04/17/16 15:54 Heart Score - HEART Score History: Slightly suspicious EKG: Non-specific Age: > 65 Risk factors: > 3 risk factors or hx of atherosclerotic disease Troponin: < normal limit HEART Score: 5 ED Review of Systems ROS: Stated complaint: CHEST PAIN/TOENAIL INFECTED/DIABETIC Other details as noted in HPI Comment: All other systems reviewed and negative Constitutional: denies: chills, fever Respiratory: denies: cough, shortness of breath Cardiovascular: chest pain Gastrointestinal: denies: nausea, vomiting ED Past Medical Hx - Past Medical History Previous Medical History?: Yes Hx Hypertension: Yes Hx CVA: Yes Hx Heart Attack/AMI: Yes Hx Congestive Heart Failure: Yes Hx Diabetes: Yes Hx Seizures: Yes Hx Psychiatric Treatment: Yes (IP and OP tx, [place], [facility], [place]/ ANXIETY / DEPRESSION/schizophrenia) Hx Asthma: No Hx COPD: No Additional medical history: Cardiomyopathy. CAD with 50% LAD lesion. pacemaker - Surgical History Past Surgical History?: Yes Hx Pacemaker: Yes Hx Internal Defibrillator: Yes (pacemaker) Hx Appendectomy: Yes Additional Surgical History: R foot surgery /OPEN HEART - Social History Smoking Status: Never Smoker Substance Use Type: None - Medications Home Medications: Home Medications Medication Instructions Recorded Confirmed Last Taken Type Sertraline [Zoloft] 100 mg PO QDAY #30 tablet 12/10/14 04/25/16 06/07/16 Rx glipiZIDE [Glucotrol] 5 mg PO BID #60 tablet 12/10/14 04/25/16 06/07/16 Rx Aspirin [Aspirin BABY CHEW TAB] 81 mg PO QDAY #30 tab.chew 12/13/14 04/25/16 06/07/16 Rx Benztropine [Cogentin] 1 mg PO BID #60 tablet 12/13/14 04/25/16 06/07/16 Rx ISOSORBIDE MONOnitrate [Imdur ER] 60 mg PO QDAY #30 tablet 12/13/14 04/25/16 06/07/16 Rx Nitroglycerin [Nitrostat] 0.4 mg SL Q5M PRN #30 tab 12/13/14 04/25/16 06/07/16 Rx Rosuvastatin (Nf) [Crestor] 10 mg PO QHS #30 tablet 12/13/14 04/25/16 06/07/16 Rx carvediloL [Coreg] 25 mg PO BID #60 tablet 12/13/14 04/25/16 06/07/16 Rx Mirtazapine 15 mg PO HS 04/08/16 04/25/16 06/07/16 History Zolpidem [Ambien] 10 mg PO QHS PRN 04/08/16 04/25/16 06/07/16 History diphenhydrAMINE [Benadryl CAP] 50 mg PO HS 04/08/16 04/25/16 06/07/16 History risperiDONE 2 mg PO QDAY 04/08/16 04/25/16 06/07/16 History Losartan [Cozaar] 25 mg PO DAILY #30 tablet 04/09/16 04/25/16 06/07/16 Rx lisinopriL [Zestril TAB] 40 mg PO QDAY 04/12/16 04/25/16 06/07/16 History Pantoprazole [Protonix TAB] 20 mg PO BID #60 tablet.dr 04/13/16 04/25/16 06/07/16 Rx Potassium Chloride [Klor-Con M20] 20 meq PO DAILY #15 tab.er.prt 12/28/17 Unknown Rx Sulfamethoxazole/Trimethoprim 1 each PO BID 5 Days #10 tablet 10/22/20 Unknown Rx [Bactrim DS TAB] ED Physical Exam - General Limitations: No Limitations General appearance: alert, in no apparent distress - Head Head exam: Present: atraumatic, normocephalic - Eye Eye exam: Present: normal appearance, EOMI - ENT ENT exam: Present: mucous membranes moist - Neck Neck exam: Present: normal inspection - Respiratory Respiratory exam: Present: normal lung sounds bilaterally. Absent: respiratory distress - Cardiovascular Cardiovascular Exam: Present: regular rate, normal rhythm - GI/Abdominal GI/Abdominal exam: Present: soft. Absent: distended, tenderness - Extremities Exam Extremities exam: Present: other (Bilateral great toes appear normal, no swelling or redness present; able to partially lift bilateral great toe nails off the nailbed; no purulent discharge present underneath the nail; no significant discoloration noted) - Neurological Exam Neurological exam: Present: alert, oriented X3 - Psychiatric Psychiatric exam: Present: normal affect, normal mood - Skin Skin exam: Present: warm, dry, intact, normal color ED Course Vital Signs 10/22/20 10/22/20 10/22/20 16:12 17:25 17:30 Temperature 98.9 F 98 F Pulse Rate 80 77 Respiratory 16 14 14 Rate Blood Pressure 187/93 Blood Pressure 176/93 [left arm] O2 Sat by Pulse 98 100 Oximetry GABE score - Gabe Score Age > 65: (0) No Aspirin use within the Past 7 Days: (0) No 3 or more CAD Risk Factors: (1) Yes 2 or more Angina events in past 24 hrs: (1) Yes Known CAD with more than 50% Stenosis: (1) Yes Elevated Cardiac Markers: (0) No ST Deviation Greater than 0.5mm: (0) No GABE Score: 3 ED Medical Decision Making - Lab Data Result diagrams: 10/22/20 16:35 10/22/20 16:35 - EKG Data -: EKG Interpreted by Me EKG shows normal: sinus rhythm Rate: normal - EKG Data When compared to previous EKG there are: no significant change Interpretation: no acute changes, other (atrial-sensed since ventricular-paced rhythm) - Radiology Data Radiology results: report reviewed, image reviewed - Medical Decision Making 69-year-old male presents to ED with complaint of toenails lifting from toes bilateral great toes. This may be secondary to fungal infection. Patient concerned about possible infection because he is diabetic. There is no sign of infection. Patient is afebrile. Will cover with antibiotics and refer patient to director gift. Patient also complaining of chest pain x10 days, sharp in nature, intermittent lasting for only a few seconds at a time. EKG is unchanged from previous. Troponin is negative x2. Chest x-ray is normal. Will discharge at this time. Patient information will be faxed to [facility] for urgent follow-up with proj engineer. Return precautions given. - Differential Diagnosis Diabetic ulcer, fungal foot infection, ACS, chest wall pain, pneumonia Critical care attestation.: If time is entered above; I have spent that time in minutes in the direct care of this critically ill patient, excluding procedure time. ED Disposition Clinical Impression: Toenail deformity, Chest pain Disposition: TO HOME OR SELFCARE Is pt being admited?: No Condition: Stable Instructions: Nonspecific Chest Pain, Adult Referrals: ANGI TRONCOSO DPM [Staff Physician] - 2-3 Days HANNAH SHEIKH MD [Primary Care Provider] - 3-5 Days PRIMARY CAREMD [Referring] - 2-3 Days Time of Disposition: 19:20
[2020-10-22 19:58] VITALS: BP 154/78
--- NOTE | 2020-10-24 11:09 | Electrocardiograph Report ---
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
== END 2020-10-22 19:57 | disposition home or self-care (01) ==
LOC: ED 15:44
DX: M20.62 Acquired deformities of toe(s), unspecified, left foot (principal); M20.61 Acquired deformities of toe(s), unspecified, right foot; R07.89 Other chest pain; I11.0 Hypertensive heart disease with heart failure; I50.9 Heart failure, unspecified; I25.2 Old myocardial infarction; K21.9 Gastro-esophageal reflux disease without esophagitis; E11.9 Type 2 diabetes mellitus without complications; Z86.73 Personal history of transient ischemic attack (TIA), and cerebral infarction without residual deficits; Z90.49 Acquired absence of other specified parts of digestive tract; Z79.899 Other long term (current) drug therapy
CPT/HCPCS: 36415; 71046; 80053; 84484; 85025; 93005

== ENCOUNTER 2020-11-22 23:02 | Inpatient (IN) | payer MEDICARE ==
[2020-11-22 23:55] LABS: Basophils % (Auto) 0.7 % (0.0-1.8); Eosinophils % (Auto) 0.3 % (0.0-4.3); Hemoglobin 13.4 gm/dl (11.8-15.2); Lymphocytes # (Auto) 1.1 K/mm3 (1.2-5.4); Lymphocytes % (Auto) 18.3 % (13.4-35.0); Mean Corpuscular HGB Conc 33 % (32-34); Mean Corpuscular Volume 85 fl (84-94); Monocytes # (Auto) 0.3 K/mm3 (0.0-0.8); Monocytes % (Auto) 5.7 % (0.0-7.3); Platelet Count 171 K/mm3 (140-440); Red Blood Count 4.74 M/mm3 (3.65-5.03); Red Cell Distribution Width 14.6 % (13.2-15.2)
[2020-11-23 00:09] LABS: INR 0.98 (0.87-1.13); Partial Thromboplastin Time 22.5 Sec. (24.2-36.6)
[2020-11-23 00:19] LABS: Alanine Aminotransferase 30 units/L (7-56); Albumin 4.4 g/dL (3.9-5); Blood Urea Nitrogen 10 mg/dL (9-20); Hemolysis Index 9
--- NOTE | 2020-11-23 00:19 | Emergency Department Report ---
ED Chest Pain HPI - General Chief Complaint: Chest Pain Stated Complaint: CHEST PAIN Time Seen by Provider: 11/22/20 23:11 Source: EMS Mode of arrival: Stretcher Limitations: No Limitations - History of Present Illness Initial Comments: This is a 70-year-old -Tong[place] male presents to the emergency department via EMS with a complaint of midsternal chest pain and a syncopal episode. The patient was at a restaurant at dinner when he was witnessed passing out and falling to the floor. The patient does think he hit his head as he has a frontal headache without any obvious traumatic signs. The patient says that he was having the chest pain before he passed out. He denies any vision change, slurred speech, numbness or paresthesias, shortness of breath. Patient has a past medical history of hypertension, CAD with previous CABG and coronary stents, seizures, pacemaker and CHF. Patient says that he follows with a ecological economist at [facility]. He received a full dose aspirin and a sublingual nitroglycerin in route with EMS without much relief. Severity scale (0 -10): 9 - Related Data Home Medications Medication Instructions Recorded Confirmed Last Taken Mirtazapine 15 mg PO HS 04/08/16 04/25/16 06/07/16 Zolpidem [Ambien] 10 mg PO QHS PRN 04/08/16 04/25/16 06/07/16 diphenhydrAMINE [Benadryl CAP] 50 mg PO HS 04/08/16 04/25/16 06/07/16 risperiDONE 2 mg PO QDAY 04/08/16 04/25/16 06/07/16 lisinopriL [Zestril TAB] 40 mg PO QDAY 04/12/16 04/25/16 06/07/16 Previous Rx's Medication Instructions Recorded Last Taken Type Sertraline [Zoloft] 100 mg PO QDAY #30 tablet 12/10/14 06/07/16 Rx glipiZIDE [Glucotrol] 5 mg PO BID #60 tablet 12/10/14 06/07/16 Rx Aspirin [Aspirin BABY CHEW TAB] 81 mg PO QDAY #30 tab.chew 12/13/14 06/07/16 Rx Benztropine [Cogentin] 1 mg PO BID #60 tablet 12/13/14 06/07/16 Rx ISOSORBIDE MONOnitrate [Imdur ER] 60 mg PO QDAY #30 tablet 12/13/14 06/07/16 Rx Nitroglycerin [Nitrostat] 0.4 mg SL Q5M PRN #30 tab 12/13/14 06/07/16 Rx Rosuvastatin (Nf) [Crestor] 10 mg PO QHS #30 tablet 12/13/14 06/07/16 Rx carvediloL [Coreg] 25 mg PO BID #60 tablet 12/13/14 06/07/16 Rx Losartan [Cozaar] 25 mg PO DAILY #30 tablet 04/09/16 06/07/16 Rx Pantoprazole [Protonix TAB] 20 mg PO BID #60 tablet.dr 04/13/16 06/07/16 Rx Potassium Chloride [Klor-Con M20] 20 meq PO DAILY #15 tab.er.prt 12/28/17 Unknown Rx Sulfamethoxazole/Trimethoprim 1 each PO BID 5 Days #10 tablet 10/22/20 Unknown Rx [Bactrim DS TAB] Allergies Allergy/AdvReac Type Severity Reaction Status Date / Time No Known Allergies Allergy Verified 04/17/16 15:54 Heart Score - HEART Score History: Slightly suspicious EKG: Non-specific Age: > 65 Risk factors: > 3 risk factors or hx of atherosclerotic disease Troponin: < normal limit HEART Score: 5 - EKG Read Time Time EKG Completed: 23:32 EKG Read Time: 23:32 ED Review of Systems ROS: Stated complaint: CHEST PAIN Other details as noted in HPI ED Past Medical Hx - Past Medical History Previous Medical History?: Yes Hx Hypertension: Yes Hx CVA: Yes Hx Heart Attack/AMI: Yes Hx Congestive Heart Failure: Yes Hx Diabetes: Yes Hx Seizures: Yes Hx Psychiatric Treatment: Yes (IP and OP tx, [place], [facility], [place]/ ANXIETY / DEPRESSION/schizophrenia) Hx Asthma: No Hx COPD: No Additional medical history: Cardiomyopathy. CAD with 50% LAD lesion. pacemaker - Surgical History Past Surgical History?: Yes Hx Pacemaker: Yes Hx Internal Defibrillator: Yes (pacemaker) Hx Appendectomy: Yes Additional Surgical History: R foot surgery /OPEN HEART - Social History Smoking Status: Never Smoker Substance Use Type: Alcohol - Medications Home Medications: Home Medications Medication Instructions Recorded Confirmed Last Taken Type Sertraline [Zoloft] 100 mg PO QDAY #30 tablet 12/10/14 04/25/16 06/07/16 Rx glipiZIDE [Glucotrol] 5 mg PO BID #60 tablet 12/10/14 04/25/16 06/07/16 Rx Aspirin [Aspirin BABY CHEW TAB] 81 mg PO QDAY #30 tab.chew 12/13/14 04/25/16 06/07/16 Rx Benztropine [Cogentin] 1 mg PO BID #60 tablet 12/13/14 04/25/16 06/07/16 Rx ISOSORBIDE MONOnitrate [Imdur ER] 60 mg PO QDAY #30 tablet 12/13/14 04/25/16 06/07/16 Rx Nitroglycerin [Nitrostat] 0.4 mg SL Q5M PRN #30 tab 12/13/14 04/25/16 06/07/16 Rx Rosuvastatin (Nf) [Crestor] 10 mg PO QHS #30 tablet 12/13/14 04/25/16 06/07/16 Rx carvediloL [Coreg] 25 mg PO BID #60 tablet 12/13/14 04/25/16 06/07/16 Rx Mirtazapine 15 mg PO HS 04/08/16 04/25/16 06/07/16 History Zolpidem [Ambien] 10 mg PO QHS PRN 04/08/16 04/25/16 06/07/16 History diphenhydrAMINE [Benadryl CAP] 50 mg PO HS 04/08/16 04/25/16 06/07/16 History risperiDONE 2 mg PO QDAY 04/08/16 04/25/16 06/07/16 History Losartan [Cozaar] 25 mg PO DAILY #30 tablet 04/09/16 04/25/16 06/07/16 Rx lisinopriL [Zestril TAB] 40 mg PO QDAY 04/12/16 04/25/16 06/07/16 History Pantoprazole [Protonix TAB] 20 mg PO BID #60 tablet. 04/13/16 04/25/16 06/07/16 Rx Potassium Chloride [Klor-Con M20] 20 meq PO DAILY #15 tab.er.prt 12/28/17 Unknown Rx Sulfamethoxazole/Trimethoprim 1 each PO BID 5 Days #10 tablet 10/22/20 Unknown Rx [Bactrim DS TAB] ED Physical Exam - General Limitations: No Limitations ED Course Vital Signs 11/22/20 11/22/20 11/22/20 23:29 23:30 23:35 Temperature 98.2 F Pulse Rate 70 73 70 Respiratory 12 19 16 Rate Blood Pressure 122/69 [Left] O2 Sat by Pulse 100 100 100 Oximetry GABE score - Gabe Score Age > 65: (1) Yes Aspirin use within the Past 7 Days: (0) No 3 or more CAD Risk Factors: (1) Yes 2 or more Angina events in past 24 hrs: (1) Yes Known CAD with more than 50% Stenosis: (1) Yes Elevated Cardiac Markers: (0) No ST Deviation Greater than 0.5mm: (1) Yes GABE Score: 5 ED Medical Decision Making - Lab Data Result diagrams: 11/22/20 23:40 11/22/20 23:40 Lab Results 11/22/20 11/22/20 11/22/20 Range/Units 23:40 23:40 23:40 WBC 5.9 (4.5-11.0) K/mm3 RBC 4.74 (3.65-5.03) M/mm3 Hgb 13.4 (11.8-15.2) gm/dl Hct 40.0 (35.5-45.6) % MCV 85 (84-94) fl MCH 28 (28-32) pg MCHC 33 (32-34) % RDW 14.6 (13.2-15.2) % Plt Count 171 (140-440) K/mm3 Lymph % (Auto) 18.3 (13.4-35.0) % Hall % (Auto) 5.7 (0.0-7.3) % Eos % (Auto) 0.3 (0.0-4.3) % Baso % (Auto) 0.7 (0.0-1.8) % Lymph # (Auto) 1.1 L (1.2-5.4) K/mm3 Hall # (Auto) 0.3 (0.0-0.8) K/mm3 Eos # (Auto) 0.0 (0.0-0.4) K/mm3 Baso # (Auto) 0.0 (0.0-0.1) K/mm3 Seg Neutrophils % 75.0 H (40.0-70.0) % Seg Neutrophils # 4.4 (1.8-7.7) K/mm3 PT 12.8 (12.2-14.9) Sec. INR 0.98 (0.87-1.13) APTT 22.5 L (24.2-36.6) Sec. Sodium 139 (137-145) mmol/L Potassium 4.2 (3.6-5.0) mmol/L Chloride 101.3 (98-107) mmol/L Carbon Dioxide 23 (22-30) mmol/L Anion Gap 19 mmol/L BUN 10 (9-20) mg/dL Creatinine 0.7 L (0.8-1.3) mg/dL Estimated GFR > 60 ml/min BUN/Creatinine Ratio 14 % Glucose 133 H (75-100) mg/dL Calcium 9.0 (8.4-10.2) mg/dL Total Bilirubin 0.30 (0.1-1.2) mg/dL AST 26 (5-40) units/L ALT 30 (7-56) units/L Alkaline Phosphatase 91 (35-129) units/L Troponin T < 0.010 (0.00-0.029) ng/mL Total Protein 6.7 (6.3-8.2) g/dL Albumin 4.4 (3.9-5) g/dL Albumin/Globulin Ratio 1.9 % TSH (0.270-4.200) mlU/mL Free T4 (0.76-1.46) ng/dL 11/22/20 Range/Units 23:40 WBC (4.5-11.0) K/mm3 RBC (3.65-5.03) M/mm3 Hgb (11.8-15.2) gm/dl Hct (35.5-45.6) % MCV (84-94) fl MCH (28-32) pg MCHC (32-34) % RDW (13.2-15.2) % Plt Count (140-440) K/mm3 Lymph % (Auto) (13.4-35.0) % Hall % (Auto) (0.0-7.3) % Eos % (Auto) (0.0-4.3) % Baso % (Auto) (0.0-1.8) % Lymph # (Auto) (1.2-5.4) K/mm3 Hall # (Auto) (0.0-0.8) K/mm3 Eos # (Auto) (0.0-0.4) K/mm3 Baso # (Auto) (0.0-0.1) K/mm3 Seg Neutrophils % (40.0-70.0) % Seg Neutrophils # (1.8-7.7) K/mm3 PT (12.2-14.9) Sec. INR (0.87-1.13) APTT (24.2-36.6) Sec. Sodium (137-145) mmol/L Potassium (3.6-5.0) mmol/L Chloride (98-107) mmol/L Carbon Dioxide (22-30) mmol/L Anion Gap mmol/L BUN (9-20) mg/dL Creatinine (0.8-1.3) mg/dL Estimated GFR ml/min BUN/Creatinine Ratio % Glucose (75-100) mg/dL Calcium (8.4-10.2) mg/dL Total Bilirubin (0.1-1.2) mg/dL AST (5-40) units/L ALT (7-56) units/L Alkaline Phosphatase (35-129) units/L Troponin T (0.00-0.029) ng/mL Total Protein (6.3-8.2) g/dL Albumin (3.9-5) g/dL Albumin/Globulin Ratio % TSH 0.464 (0.270-4.200) mlU/mL Free T4 1.26 (0.76-1.46) ng/dL - EKG Data -: EKG Interpreted by Me - EKG Data When compared to previous EKG there are: no significant change (10/22/2020) Interpretation: unchanged when compared t (10/22/2020), other (Atrial ventricular dual paced rhythm at 70 bpm. Prolonged QTC QT and QTc. No ST elevation [place].) - Radiology Data Radiology results: report reviewed, image reviewed interpreted by me: Chest x-ray does not show any acute process. There are no pleural effusions, obvious pneumonia and there is no pneumothorax. No significant cardiomegaly. CT HEAD WITHOUT CONTRAST INDICATION / CLINICAL INFORMATION: Syncope. TECHNIQUE: All CT scans at this location are performed using CT dose reduction for ALARA by means of automated exposure control. COMPARISON: 06/05/16. FINDINGS: HEMORRHAGE: None. EXTRA-AXIAL SPACES: Mildly prominent likely related to cortical atrophy. VENTRICULAR SYSTEM: Mildly enlarged likely related to central atrophy. CEREBRAL PARENCHYMA: Mild bilateral basal ganglia calcifications. No focal lesion. No acute territorial infarct. MIDLINE SHIFT / HERNIATION: None. CEREBELLUM / BRAINSTEM: There is mild diffuse cerebellar atrophy. No other significant abnormality. ORBITS: Normal as visualized. SOFT TISSUES: No significant abnormality. SKULL: No significant abnormality. PARANASAL SINUSES / MASTOID AIR CELLS: Normal as visualized. ADDITIONAL FINDINGS: None. IMPRESSION: No acute intracranial abnormality. - Medical Decision Making This patient presents to the emergency department with midsternal chest pain and a syncopal episode. On examination he does not have any focal, motor or sensory deficits and his cranial nerves are intact. EKG does not have any morphology consistent with ST elevation myocardial infarction and is unchanged from previous. Chest x-ray does not show any pneumonia, pleural effusions, pneumothorax, or any other acute process. CT of the head does not show any skull fracture, hemorrhage, large vessel occlusion, or any other acute process. Patient's labs have been mostly unremarkable thus far including CBC, metabolic panel and a negative troponin. The patient has a moderate heart and GABE score. For this reason he will be admitted to the hospital for further evaluation and treatment and was accepted for admission by the hospitalist, Dr. Gracia. Critical Care Time: No Critical care attestation.: If time is entered above; I have spent that time in minutes in the direct care of this critically ill patient, excluding procedure time. ED Disposition Clinical Impression: Acute chest pain, History of coronary artery disease Syncope Qualifiers: Syncope type: unspecified Qualified Code(s): R55 - Syncope and collapse Disposition: OP ADMIT IP TO THIS HOSP Is pt being admited?: Yes Condition: Fair Instructions: Chest Pain (ED), Syncope (ED) Time of Disposition: 00:59
[2020-11-23 00:28] LABS: BUN/Creatinine Ratio 14
[2020-11-23 00:31] LABS: Free T4 (Free Thyroxine) 1.26 ng/dL (0.76-1.46)
--- NOTE | 2020-11-23 00:42 | Cat Scan Report ---
CT HEAD WITHOUT CONTRAST INDICATION / CLINICAL INFORMATION: Syncope. TECHNIQUE: All CT scans at this location are performed using CT dose reduction for ALARA by means of automated exposure control. COMPARISON: 06/05/16. FINDINGS: HEMORRHAGE: None. EXTRA-AXIAL SPACES: Mildly prominent likely related to cortical atrophy. VENTRICULAR SYSTEM: Mildly enlarged likely related to central atrophy. CEREBRAL PARENCHYMA: Mild bilateral basal ganglia calcifications. No focal lesion. No acute territori al infarct. MIDLINE SHIFT / HERNIATION: None. CEREBELLUM / BRAINSTEM: There is mild diffuse cerebellar atrophy. No other significant abnormality. ORBITS: Normal as visualized. SOFT TISSUES: No significant abnormality. SKULL: No significant abnormality. PARANASAL SINUSES / MASTOID AIR CELLS: Normal as visualized. ADDITIONAL FINDINGS: None. IMPRESSION: No acute intracranial abnormality. Signer Name: Dar Lyn MD Signed: 11/23/2020 12:37 AM Workstation Name: [id number]
--- NOTE | 2020-11-23 01:03 | XRay Report ---
CHEST 1 VIEW 11/22/2020 10:34 PM INDICATION / CLINICAL INFORMATION: CP. Syncope. COMPARISON: 10/22/20. FINDINGS: SUPPORT DEVICES: The position of the multilead left subclavian ICD has not changed. HEART / MEDIASTINUM: Median sternotomy. Normal heart size and pulmonary vasculature. No evidence of a ortic aneurysm. LUNGS / PLEURA: No significant pulmonary or pleural abnormality. No pneumothorax. ADDITIONAL FINDINGS: No significant additional findings. IMPRESSION: No acute abnormality or significant change. Signer Name: Dar Lyn MD Signed: 11/23/2020 12:58 AM Workstation Name: [id number]
[2020-11-23] MEDS ORDERED: traMADol 50 MG TAB PO PRN (01:09)
[2020-11-23] MEDS ORDERED: MAGNESIUM HYDROXIDE (MOM) ORAL LIQD UDC PO PRN (01:09)
[2020-11-23] MEDS ORDERED: DEXTROSE 50% IN WATER (25GM) 50 ML SYRINGE IV PRN (01:09)
[2020-11-23] MEDS ORDERED: ONDANSETRON 4 MG/2 ML INJ IV PRN (01:09)
[2020-11-23] MEDS ORDERED: ACETAMINOPHEN 325 MG TAB PO PRN ×2 (01:09)
[2020-11-23] MEDS ORDERED: NITROGLYCERIN 0.4 MG TAB SUBL SL PRN (01:09)
--- NOTE | 2020-11-23 01:22 | History and Physical Report ---
History of Present Illness Date of examination: 11/23/20 Date of admission: 11/23/2020 Chief complaint: Chest Pain History of present illness: 70-year-old -German male with known history of coronary artery disease, diabetes mellitus, hypertension, CHF and CVA in the past presenting to the emergency room today complaining of midsternal chest pain and a syncopal episode. Patient states that he was at a restaurant when he suddenly passed out and fell to the floor. Patient also indicates that he bumped his head and he has had some mild headache since then. He denies any shortness of breath, no nausea or vomiting, no abdominal pain, no blurry vision, no diaphoresis, no fever or chills. Patient indicates that he follows up with a insole buffer at [facility]. He received a full dose of aspirin and sublingual nitroglycerin from EMS en route to the hospital. He has had some significant improvement in his chest pain. Work-up in the emergency room today occluding chest x-ray, EKG and labs have been unremarkable. Patient is being admitted for chest pain work-up. Past History Past Medical History: CAD, diabetes, heart failure, hypertension, seizures, stroke, other (Cardiomyopathy, coronary artery disease with 50% LAD lesion, pacemaker) Past Surgical History: appendectomy, CABG, Other (Pacemaker, right foot surgery, open heart surgery) Social history: alcohol abuse Family history: no significant family history Medications and Allergies Allergies Allergy/AdvReac Type Severity Reaction Status Date / Time No Known Allergies Allergy Verified 04/17/16 15:54 Home Medications Medication Instructions Recorded Confirmed Last Taken Type Sertraline [Zoloft] 100 mg PO QDAY #30 tablet 12/10/14 11/23/20 11/21/20 21:00 Rx glipiZIDE [Glucotrol] 5 mg PO BID #60 tablet 12/10/14 11/23/20 11/22/20 09:00 Rx Aspirin [Aspirin BABY CHEW TAB] 81 mg PO QDAY #30 tab.chew 12/13/14 11/23/20 11/22/20 09:00 Rx Benztropine [Cogentin] 1 mg PO BID #60 tablet 12/13/14 11/23/20 11/21/20 21:00 Rx ISOSORBIDE MONOnitrate [Imdur ER] 60 mg PO QDAY #30 tablet 12/13/14 11/23/20 11/22/20 09:00 Rx Nitroglycerin [Nitrostat] 0.4 mg SL Q5M PRN #30 tab 12/13/14 11/23/20 11/22/20 12:00 Rx Rosuvastatin (Nf) [Crestor] 10 mg PO QHS #30 tablet 12/13/14 11/23/20 11/22/20 21:00 Rx carvediloL [Coreg] 25 mg PO BID #60 tablet 12/13/14 11/23/20 11/22/20 09:00 Rx Mirtazapine 15 mg PO HS 04/08/16 11/23/20 11/21/20 21:00 History Zolpidem [Ambien] 10 mg PO QHS PRN 04/08/16 11/23/20 11/21/20 21:00 History diphenhydrAMINE [Benadryl CAP] 50 mg PO HS 04/08/16 11/23/20 11/22/20 21:00 History risperiDONE 2 mg PO QDAY 04/08/16 11/23/20 11/22/20 09:00 History Losartan [Cozaar] 25 mg PO DAILY #30 tablet 04/09/16 11/23/20 11/22/20 09:00 Rx lisinopriL [Zestril TAB] 40 mg PO QDAY 04/12/16 11/23/20 11/22/20 09:00 History Pantoprazole [Protonix TAB] 20 mg PO BID #60 tablet. 04/13/16 11/23/20 11/22/20 09:00 Rx Potassium Chloride [Klor-Con M20] 20 meq PO DAILY #15 tab.er.prt 12/28/17 11/23/20 11/21/20 21:00 Rx Sulfamethoxazole/Trimethoprim 1 each PO BID 5 Days #10 tablet 10/22/20 11/23/20 11/21/20 21:00 Rx [Bactrim DS TAB] Review of Systems Constitutional: no fever, no chills Ears, nose, mouth and throat: no nasal congestion, no sore throat Cardiovascular: chest pain, no palpitations Respiratory: no cough, no shortness of breath Gastrointestinal: no abdominal pain, no nausea, no vomiting, no diarrhea Genitourinary Male: no dysuria, no hematuria, no nocturia Musculoskeletal: no neck pain, no low back pain Integumentary: no rash, no pruritis Neurological: syncope, no headaches, no confusion Psychiatric: no anxiety, no depression Endocrine: no polyphagia, no polydipsia, no polyuria, no nocturia Exam - Constitutional Vitals: Temp Pulse Resp BP Pulse Ox 98.2 F 70 16 122/69 100 11/22/20 23:35 11/22/20 23:35 11/22/20 23:35 11/22/20 23:35 11/22/20 23:35 General appearance: Present: no acute distress, well-nourished - EENT Eyes: Present: PERRL, EOM intact. Absent: scleral icterus ENT: hearing intact, clear oral mucosa, dentition normal - Neck Neck: Present: supple, normal ROM - Respiratory Respiratory effort: normal Respiratory: bilateral: CTA - Cardiovascular Rhythm: regular Heart Sounds: Present: S1 & S2. Absent: gallop, systolic murmur, diastolic murmur, rub, click - Extremities Extremities: no ischemia, pulses intact, pulses symmetrical, No edema, normal temperature, normal color, Full ROM Peripheral Pulses: within normal limits - Abdominal General gastrointestinal: Present: soft, non-tender, non-distended, normal bowel sounds. Absent: mass - Integumentary Integumentary: Present: clear, warm, dry. Absent: rash - Musculoskeletal Musculoskeletal: strength equal bilaterally - Psychiatric Psychiatric: appropriate mood/affect, intact judgment & insight, memory intact, cooperative - Neurologic Neurologic: CNII-XII intact, no focal deficits, moves all extremities HEART Score - HEART Score History: Slightly suspicious EKG: Non-specific Age: > 65 Risk factors: > 3 risk factors or hx of atherosclerotic disease Troponin: Troponin T < 0.010 ng/mL (0.00-0.029) 11/22/20 23:40 Troponin: < normal limit HEART Score: 5 Results - Labs CBC & Chem 7: 11/23/20 02:22 11/23/20 02:22 Labs: Abnormal lab results 11/22/20 11/22/20 11/22/20 Range/Units 23:40 23:40 23:40 Lymph # (Auto) 1.1 L (1.2-5.4) K/mm3 Seg Neutrophils % 75.0 H (40.0-70.0) % APTT 22.5 L (24.2-36.6) Sec. Creatinine 0.7 L (0.8-1.3) mg/dL Glucose 133 H (75-100) mg/dL Assessment and Plan - Patient Problems (1) Acute chest pain Current Visit: Yes Status: Acute Plan to address problem: Patient admitted and placed on telemetry. Will check serial cardiac enzymes. He is placed on aspirin, sublingual nitroglycerin and IV morphine as needed for chest pain. Consult placed to cardiology for evaluation and recommendation. Patient indicates that she follows up with insole buffer at [facility]. Review of his record shows that he has been seen by Dr. Camp in the past. (2) Syncope Current Visit: Yes Status: Acute Qualifiers: Syncope type: unspecified Qualified Code(s): R55 - Syncope and collapse Plan to address problem: Possibly secondary to his cardiac related problems. We will schedule patient for echocardiogram. Will monitor closely on telemetry (3) Hypertension Current Visit: No Status: Acute Qualifiers: Hypertension type: essential hypertension Qualified Code(s): I10 - Essential (primary) hypertension Plan to address problem: We will resume routine home medications and monitor vital signs closely. (4) Hyperlipidemia Current Visit: No Status: Chronic Plan to address problem: Will monitor lipid profile. (5) DVT prophylaxis Current Visit: No Status: Acute Plan to address problem: Patient placed on subcutaneous heparin. (6) Full code status Current Visit: Yes Status: Acute Plan to address problem: Patient is full code.
[2020-11-23 01:27] LABS: Amphetamine Screen,Urine PRESUMPTIVE NEGATIVE; Benzodiazepines Screen,Urine PRESUMPTIVE NEGATIVE; Cannabinoid Screen,Urine PRESUMPTIVE NEGATIVE; Cocaine Screen,Urine PRESUMPTIVE NEGATIVE; Methadone Screen,Urine PRESUMPTIVE NEGATIVE; Opiate Screen,Urine PRESUMPTIVE NEGATIVE
[2020-11-23 02:03] LABS: Bilirubin,Urine Negative (Negative); Color,Urine Straw (Yellow)
[2020-11-23 02:04] LABS: Blood,Urine Negative (Negative); PH,Urine 5.5 (5.0-7.0); Urobilinogen,Urine < 2.0 mg/dL (<2.0)
[2020-11-23 02:49] LABS: Basophils % (Auto) 0.8 % (0.0-1.8); Eosinophils % (Auto) 0.2 % (0.0-4.3); Hematocrit 40.9 % (35.5-45.6); Hemoglobin 13.7 gm/dl (11.8-15.2); Lymphocytes # (Auto) 1.2 K/mm3 (1.2-5.4); Lymphocytes % (Auto) 19.8 % (13.4-35.0); Mean Corpuscular HGB Conc 34 % (32-34); Mean Corpuscular Volume 83 fl (84-94); Monocytes # (Auto) 0.3 K/mm3 (0.0-0.8); Monocytes % (Auto) 4.2 % (0.0-7.3); Platelet Count 192 K/mm3 (140-440); Red Blood Count 4.93 M/mm3 (3.65-5.03); Red Cell Distribution Width 14.9 % (13.2-15.2)
[2020-11-23 03:00] LABS: Blood Urea Nitrogen 10 mg/dL (9-20); Calcium 9.1 mg/dL (8.4-10.2); Hemolysis Index 10
[2020-11-23 03:10] LABS: BUN/Creatinine Ratio 14
[2020-11-23] MEDS: MORPHINE 4 MG/1 ML INJ IV PRN ×2 (03:45→06:51)
[2020-11-23] MEDS ORDERED: ZOLPIDEM 5 MG TAB PO PRN (04:51)
[2020-11-23] MEDS: HEPARIN 5,000 UNIT/1 ML VIAL SUB-Q SCH ×3 (06:23→22:09)
[2020-11-23] MEDS ORDERED: REGADENOSON 0.4 MG/5 ML INJ IV ONE (07:02)
[2020-11-23] MEDS: INSULIN LISPRO 100 UNIT/ML SUB-Q SCH ×4 (08:24→22:30)
[2020-11-23] MEDS: BENZTROPINE 1 MG TAB PO SCH (10:19)
[2020-11-23] MEDS: SERTRALINE 100 MG TAB PO SCH (10:20)
[2020-11-23] MEDS: PANTOPRAZOLE 20 MG TAB PO SCH ×2 (10:20→22:10)
[2020-11-23] MEDS: risperiDONE 1 MG TAB PO SCH (10:20)
[2020-11-23] MEDS: POTASSIUM CHLORIDE 20 MEQ PACKET PO SCH (10:20)
[2020-11-23] MEDS: carvediloL 25 MG TAB PO SCH ×2 (10:20→22:09)
[2020-11-23] MEDS: LOSARTAN 25 MG TAB PO SCH (10:20)
[2020-11-23] MEDS: LISINOPRIL 40 MG TAB PO SCH (10:21)
--- NOTE | 2020-11-23 12:59 | Event Note ---
Date: 11/23/20 Sign out received from Dr Gracia Patient here with chest pain and syncopal episode Plan for stress test today Cardiology consulted Has AICD- will need device interrogation Work up in progress
--- NOTE | 2020-11-23 14:32 | Consultation ---
History of Present Illness Consult date: 11/23/20 Consult reason: syncope History of present illness: The patient is a 70-year-old man with a history of coronary artery disease and c hronic ischemic cardiomyopathy. 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 7 years ago, he underwent three-vessel coronary artery bypass at [facility]. Within that timeframe, he also underwent placement of an internal cardiac defibrillator for persistent ischemic cardiomyopathy. He has a [employer] device. His major comorbidity other than his cardiac condition is chronic seizures for which he is on prophylactic medical therapy. He presents to the hospital at this time following a syncopal episode while at denying a restaurant. He states that he suddenly passed out with no prodrome, no palpitations, no chest pain and no shortness of breath. He was brought to the emergency room, evaluated and referred for admission. The record reports that at the restaurant bar, he had had 2 beers. He was apparently awake and alert by the time the hot air furnace installer and repairer brought him to the emergency room. Today, the internal medicine service ordered a Lexiscan thallium stress test, and requested for cardiology consult. The patient is otherwise awake and alert, has no complaints at the current time. Serial EKGs in the chart show a sinus rhythm with ventricular paced complexes. Chest x-ray showed mild cardiomegaly, internal defibrillator in situ, clear lungs. Laboratory exam showed serial troponin levels x3 all negative. The patient underwent the previously ordered a Lexiscan thallium stress test, the results are pending. Past History Past Medical History: CAD, diabetes, heart failure, hypertension, seizures, stroke, other (Cardiomyopathy, coronary artery disease with 50% LAD lesion, pacemaker) Past Surgical History: appendectomy, CABG, Other (Pacemaker, right foot surgery, open heart surgery) Social history: alcohol abuse Family history: no significant family history Medications and Allergies Allergies Allergy/AdvReac Type Severity Reaction Status Date / Time No Known Allergies Allergy Verified 04/17/16 15:54 Home Medications Medication Instructions Recorded Confirmed Last Taken Type Sertraline [Zoloft] 100 mg PO QDAY #30 tablet 12/10/14 11/23/20 11/21/20 21:00 Rx glipiZIDE [Glucotrol] 5 mg PO BID #60 tablet 12/10/14 11/23/20 11/22/20 09:00 Rx Aspirin [Aspirin BABY CHEW TAB] 81 mg PO QDAY #30 tab.chew 12/13/14 11/23/20 11/22/20 09:00 Rx Benztropine [Cogentin] 1 mg PO BID #60 tablet 12/13/14 11/23/20 11/21/20 21:00 Rx ISOSORBIDE MONOnitrate [Imdur ER] 60 mg PO QDAY #30 tablet 12/13/14 11/23/20 11/22/20 09:00 Rx Nitroglycerin [Nitrostat] 0.4 mg SL Q5M PRN #30 tab 12/13/14 11/23/20 11/22/20 12:00 Rx Rosuvastatin (Nf) [Crestor] 10 mg PO QHS #30 tablet 12/13/14 11/23/20 11/22/20 21:00 Rx carvediloL [Coreg] 25 mg PO BID #60 tablet 12/13/14 11/23/20 11/22/20 09:00 Rx Mirtazapine 15 mg PO HS 04/08/16 11/23/20 11/21/20 21:00 History Zolpidem [Ambien] 10 mg PO QHS PRN 04/08/16 11/23/20 11/21/20 21:00 History diphenhydrAMINE [Benadryl CAP] 50 mg PO HS 04/08/16 11/23/20 11/22/20 21:00 History risperiDONE 2 mg PO QDAY 04/08/16 11/23/20 11/22/20 09:00 History Losartan [Cozaar] 25 mg PO DAILY #30 tablet 04/09/16 11/23/20 11/22/20 09:00 Rx lisinopriL [Zestril TAB] 40 mg PO QDAY 04/12/16 11/23/20 11/22/20 09:00 History Pantoprazole [Protonix TAB] 20 mg PO BID #60 tablet. 04/13/16 11/23/20 11/22/20 09:00 Rx Potassium Chloride [Klor-Con M20] 20 meq PO DAILY #15 tab.er.prt 12/28/17 11/23/20 11/21/20 21:00 Rx Sulfamethoxazole/Trimethoprim 1 each PO BID 5 Days #10 tablet 10/22/20 11/23/20 11/21/20 21:00 Rx [Bactrim DS TAB] Active Meds: Active Medications Acetaminophen (Acetaminophen 325 Mg Tab) 650 mg PO Q4H PRN PRN Reason: Pain MILD(1-3)/Fever >100.5/AGOSTO Last Admin: 11/23/20 09:55 Dose: 650 mg Documented by: Aspirin (Aspirin Ec 325 Mg Tab) 325 mg PO QDAY [facility] Atorvastatin Calcium (Atorvastatin 20 Mg Tab) 20 mg PO QHS [facility] Benztropine Mesylate (Benztropine 1 Mg Tab) 1 mg PO BID [facility] Last Admin: 11/23/20 10:19 Dose: 1 mg Documented by: Carvedilol (Carvedilol 25 Mg Tab) 25 mg PO BID [facility] Last Admin: 11/23/20 10:20 Dose: 25 mg Documented by: Dextrose (Dextrose 50% In Water (25gm) 50 Ml Syringe) 50 ml IV Q30MIN PRN; Protocol PRN Reason: Hypoglycemia Diphenhydramine HCl (Diphenhydramine 50 Mg Cap) 50 mg PO HS [facility] Heparin Sodium (Porcine) (Heparin 5,000 Unit/1 Ml Vial) 5,000 unit SUB-Q Q8HR [facility] Last Admin: 11/23/20 13:16 Dose: 5,000 unit Documented by: Insulin Human Lispro (Insulin Lispro 100 Unit/Ml) 0 unit SUB-Q ACHS [facility]; Protocol Last Admin: 11/23/20 12:14 Dose: Not Given Documented by: Isosorbide Mononitrate (Isosorbide Mononitrate Er 60 Mg Tab) 60 mg PO QDAY [facility] Last Admin: 11/23/20 10:19 Dose: 60 mg Documented by: Lisinopril (Lisinopril 40 Mg Tab) 40 mg PO QDAY [facility] Last Admin: 11/23/20 10:21 Dose: 40 mg Documented by: Losartan Potassium (Losartan 25 Mg Tab) 25 mg PO DAILY [facility] Last Admin: 11/23/20 10:20 Dose: 25 mg Documented by: Magnesium Hydroxide (Magnesium Hydroxide (Mom) Oral Liqd Udc) 30 ml PO Q4H PRN PRN Reason: Constipation Mirtazapine (Mirtazapine 15 Mg Tab) 15 mg PO HS [facility] Morphine Sulfate (Morphine 4 Mg/1 Ml Inj) 2 mg IV Q5MIN PRN PRN Reason: Chest Pain Last Admin: 11/23/20 06:51 Dose: 2 mg Documented by: Nitroglycerin (Nitroglycerin 0.4 Mg Tab Subl) 0.4 mg SL Q5M PRN PRN Reason: Chest Pain Ondansetron HCl (Ondansetron 4 Mg/2 Ml Inj) 4 mg IV Q8H PRN PRN Reason: Nausea And Vomiting Pantoprazole Sodium (Pantoprazole 20 Mg Tab) 20 mg PO BID [facility] Last Admin: 11/23/20 10:20 Dose: 20 mg Documented by: Potassium Chloride (Potassium Chloride 20 Meq Packet) 20 meq PO DAILY [facility] Last Admin: 11/23/20 10:20 Dose: 20 meq Documented by: Risperidone (Risperidone 1 Mg Tab) 2 mg PO QDAY [facility] Last Admin: 11/23/20 10:20 Dose: 2 mg Documented by: Sertraline HCl (Sertraline 100 Mg Tab) 100 mg PO QDAY [facility] Last Admin: 11/23/20 10:20 Dose: 100 mg Documented by: Sodium Chloride (Sodium Chloride 0.9% 10 Ml Flush Syringe) 10 ml IV BID [facility] Last Admin: 11/23/20 10:21 Dose: 10 ml Documented by: Sodium Chloride (Sodium Chloride 0.9% 10 Ml Flush Syringe) 10 ml IV PRN PRN PRN Reason: LINE FLUSH Tramadol HCl (Tramadol 50 Mg Tab) 50 mg PO Q6H PRN PRN Reason: Pain, Moderate (4-6) Zolpidem Tartrate (Zolpidem 5 Mg Tab) 10 mg PO QHS PRN PRN Reason: Sleep Review of Systems Cardiovascular: syncope, no chest pain, no orthopnea, no palpitations, no rapid/irregular heart beat, no edema, no lightheadedness, no shortness of breath Physical Examination Vital Signs Pulse Resp Pulse Ox 70 12 100 11/22/20 23:29 11/22/20 23:29 11/22/20 23:29 General appearance: no acute distress HEENT: Positive: PERRL Neck: Positive: neck supple Cardiac: Positive: Reg Rate and Rhythm Lungs: Positive: Decreased Breath Sounds Neuro: Positive: Grossly Intact Abdomen: Positive: Soft Male genitourinary: Positive: deferred Skin: Positive: Clear Extremities: Absent: edema Results 11/23/20 02:22 11/23/20 02:22 Cardiac Enzymes 11/22/20 Range/Units 23:40 AST 26 (5-40) units/L Coagulation 11/22/20 Range/Units 23:40 PT 12.8 (12.2-14.9) Sec. INR 0.98 (0.87-1.13) APTT 22.5 L (24.2-36.6) Sec. CBC 11/22/20 11/23/20 Range/Units 23:40 02:22 WBC 5.9 6.3 (4.5-11.0) K/mm3 RBC 4.74 4.93 (3.65-5.03) M/mm3 Hgb 13.4 13.7 (11.8-15.2) gm/dl Hct 40.0 40.9 (35.5-45.6) % Plt Count 171 192 (140-440) K/mm3 Lymph # (Auto) 1.1 L 1.2 (1.2-5.4) K/mm3 [place] # (Auto) 0.3 0.3 (0.0-0.8) K/mm3 Eos # (Auto) 0.0 0.0 (0.0-0.4) K/mm3 Baso # (Auto) 0.0 0.0 (0.0-0.1) K/mm3 Comprehensive Metabolic Panel 11/22/20 11/23/20 Range/Units 23:40 02:22 Sodium 139 141 (137-145) mmol/L Potassium 4.2 3.8 (3.6-5.0) mmol/L Chloride 101.3 103.1 (98-107) mmol/L Carbon Dioxide 23 24 (22-30) mmol/L BUN 10 10 (9-20) mg/dL Creatinine 0.7 L 0.7 L (0.8-1.3) mg/dL Glucose 133 H 107 H (75-100) mg/dL Calcium 9.0 9.1 (8.4-10.2) mg/dL AST 26 (5-40) units/L ALT 30 (7-56) units/L Alkaline Phosphatase 91 (35-129) units/L Total Protein 6.7 (6.3-8.2) g/dL Albumin 4.4 (3.9-5) g/dL EKG interpretations - Telemetry EKG Rhythm: Sinus Rhythm (With ventricular paced complexes) Assessment and Plan - Patient Problems (1) Syncope Current Visit: Yes Status: Acute Qualifiers: Syncope type: unspecified Qualified Code(s): R55 - Syncope and collapse Plan to address problem: Syncope with the patient with chronic ischemic cardiomyopathy, indwelling c ardiac defibrillator and additional history of seizure disorder. In addition to a Lexiscan thallium stress test and echocardiogram, we will also order an ICD interrogation to assess for intercurrent ventricular arrhythmias. Otherwise, we will defer to internal medicine to order an assessment of the patient's seizure disorder as a possible cause of syncope.
--- NOTE | 2020-11-23 14:50 | Nuclear Medicine Report ---
APPROVED REPORT Exam: Nuclear Stress Test Indication: Chest pain Patient Location: [address] [place] [address] Room #: 479 Ht: 5 ft 8 in Wt: 140 lbs BSA: 1.76 m2 HR: 70 bpm BP: 137/78 mmHg BMI: 21.28 Rhythm: AV PACED Stress Test Details Stress Test: Pharmacologic stress testing performed using 0.4 mg of regadenoson per 5 mL given IV over 10 seconds. Reason for pharmacologic stress test: physical limitation. HR Resting HR: 70 bpmMax Heart Rate (APMHR): 152 bpm Max HR Achieved: 99 bpmTarget HR (85% APMHR): 129 bpm % of APMHR: 65 Recovery HR: 90 bpm BP Resting BP: 137/78 mmHg Max BP: 145/78 mmHg Recovery BP: 129/78 mmHg ECG Resting ECG: AV paced rhythm Arrhythmia: None Recovery ECG: AV paced rhythm Recovery Arrhythmia: None Clinical Scale: Sedentary Stress ECG Conclusion EKG with Lexiscan indeterminate due to ventricular pacing, thallium images are pending for final test interpretation. NM EXAM: Myocardial Perfusion REST/STRESS Imaging Protocol: Rest Tc-99m/Stress Tc-99m 1 day Resting Data Rest SPECT myocardial perfusion imaging was performed in supine position 45 minutes following the intravenous injection of 10 mCi of Tc-99m Myoview. Time of rest injection: 0730 Pharmacologic Stress Pharmacologic stress test was performed by injecting Regadenoson 0.4 mg IV push followed by the intravenous injection of 28 mCi of Tc-99m Myoview. Time of stress injection: 0950 Gated Stress SPECT was performed 30 minutes after stress injection. Study Data TID = 1.00. Perfusion Nuclear Conclusion ECG Findings: non-diagnostic Clinical Findings: negative for ischemia Nuclear Findings: negative for ischemia Left Ventricular Function: abnormal Risk Study: moderate Myocardial perfusion study shows a dilated cardiomyopathy, with moderately severe left ventricular dysfunction, ejection fraction calculated at 39%. There is a large fixed inferior defect consistent with a prior inferior myocardial infarction. There is no significant reversibility noted on the resting study. Clinical correlation is recommended. Conclusion EKG with Lexiscan indeterminate due to ventricular pacing, thallium images are pending for final test interpretation.
[2020-11-23] MEDS ORDERED: NON-FORMULARY EACH (Rosuvastatin (Nf) 10 MG Tablet) PO SCH (22:00)
[2020-11-23] MEDS: diphenhydrAMINE 50 MG CAP PO SCH (22:08)
[2020-11-23] MEDS: MIRTAZAPINE 15 MG TAB PO SCH (22:08)
[2020-11-24] MEDS ORDERED: SODIUM CHLORIDE 0.9% 1000 ML IV SOLN ONE (00:24)
[2020-11-24 05:14] LABS: Basophils # (Auto) 0.1 K/mm3 (0.0-0.1); Basophils % (Auto) 0.8 % (0.0-1.8); Eosinophils % (Auto) 0.2 % (0.0-4.3); Hematocrit 36.2 % (35.5-45.6); Hemoglobin 12.1 gm/dl (11.8-15.2); Lymphocytes # (Auto) 1.2 K/mm3 (1.2-5.4); Mean Corpuscular HGB Conc 34 % (32-34); Mean Corpuscular Volume 83 fl (84-94); Monocytes # (Auto) 0.5 K/mm3 (0.0-0.8); Monocytes % (Auto) 8.2 % (0.0-7.3); Platelet Count 161 K/mm3 (140-440); Red Blood Count 4.36 M/mm3 (3.65-5.03); Red Cell Distribution Width 14.6 % (13.2-15.2)
[2020-11-24 05:26] LABS: INR 1.18 (0.87-1.13)
[2020-11-24 05:35] LABS: BUN/Creatinine Ratio 16; Blood Urea Nitrogen 18 mg/dL (9-20); Calcium 8.7 mg/dL (8.4-10.2); Hemolysis Index 8
[2020-11-24] MEDS: HEPARIN 5,000 UNIT/1 ML VIAL SUB-Q SCH ×3 (06:56→21:54)
[2020-11-24] MEDS: BENZTROPINE 1 MG TAB PO SCH ×3 (06:58→21:54)
[2020-11-24] MEDS: INSULIN LISPRO 100 UNIT/ML SUB-Q SCH ×4 (09:01→21:55)
[2020-11-24] MEDS: risperiDONE 1 MG TAB PO SCH (09:02)
[2020-11-24] MEDS: PANTOPRAZOLE 20 MG TAB PO SCH ×2 (09:02→21:53)
[2020-11-24] MEDS: ASPIRIN EC 325 MG TAB PO SCH (09:02)
[2020-11-24] MEDS: SERTRALINE 100 MG TAB PO SCH (09:02)
[2020-11-24] MEDS: carvediloL 25 MG TAB PO SCH ×2 (09:41→21:53)
[2020-11-24] MEDS: LISINOPRIL 40 MG TAB PO SCH (09:41)
[2020-11-24] MEDS: LOSARTAN 25 MG TAB PO SCH (09:41)
[2020-11-24] MEDS: POTASSIUM CHLORIDE 20 MEQ PACKET PO SCH (09:41)
--- NOTE | 2020-11-24 10:04 | Progress Note ---
Assessment and Plan Syncope Lexiscan thallium stress test this admission - no reversible ischemia Echocardiogram showed persistent dilated cardiomyopathy, ejection fraction 15-20%. Hx of coronary artery disease s/p 3V bypass surgery at [facility] Hx of ischemic cardiomyopathy Presence of internal cardiac defibrillator ([employer]) Seizures disorder Hypertension Will get an ICD interrogation to assess for intercurrent ventricular arrhythmias. Continue medical therapy for ischemic cardiomyopathy and coronary artery disease. Otherwise, conservative cardiac management. Subjective Date of service: 11/24/20 Interval history: Patient has no cardiac complaints. Awaits ICD interrogation. Objective Vital Signs Temp Pulse Pulse Resp BP BP Pulse Ox 11/24/20 09:41 69 101/56 11/24/20 08:16 69 18 98 11/24/20 07:53 97.4 F L 69 18 101/56 96 11/24/20 05:00 71 11/24/20 03:35 98.6 F 71 18 92/52 97 11/24/20 01:00 70 18 98 11/23/20 22:52 98.9 F 71 18 120/55 100 11/23/20 22:09 70 107/59 11/23/20 21:00 71 11/23/20 20:30 70 89/50 97 11/23/20 19:13 88/46 11/23/20 19:00 97.6 F 70 17 107/59 98 11/23/20 18:15 90/58 11/23/20 15:49 98.2 F 70 18 88/47 98 11/23/20 13:59 70 18 98 11/23/20 10:50 99.0 F 70 19 170/90 99 11/23/20 10:21 75 133/77 11/23/20 10:20 75 133/77 11/23/20 10:19 75 133/77 - Physical Examination General: No Apparent Distress HEENT: Positive: PERRL Neck: Positive: neck supple Cardiac: Positive: Other (paced) Lungs: Positive: Decreased Breath Sounds Neuro: Positive: Grossly Intact Extremities: Absent: edema - Labs and Meds Coagulation 11/24/20 Range/Units 04:46 PT 14.8 (12.2-14.9) Sec. INR 1.18 H (0.87-1.13) CBC 11/24/20 Range/Units 04:46 WBC 6.6 (4.5-11.0) K/mm3 RBC 4.36 (3.65-5.03) M/mm3 Hgb 12.1 (11.8-15.2) gm/dl Hct 36.2 (35.5-45.6) % Plt Count 161 (140-440) K/mm3 Lymph # (Auto) 1.2 (1.2-5.4) K/mm3 [place] # (Auto) 0.5 (0.0-0.8) K/mm3 Eos # (Auto) 0.0 (0.0-0.4) K/mm3 Baso # (Auto) 0.1 (0.0-0.1) K/mm3 Comprehensive Metabolic Panel 11/24/20 Range/Units 04:46 Sodium 140 (137-145) mmol/L Potassium 4.1 (3.6-5.0) mmol/L Chloride 105.3 (98-107) mmol/L Carbon Dioxide 25 (22-30) mmol/L BUN 18 (9-20) mg/dL Creatinine 1.1 D (0.8-1.3) mg/dL Glucose 113 H (75-100) mg/dL Calcium 8.7 (8.4-10.2) mg/dL
--- NOTE | 2020-11-24 10:45 | Electrocardiograph Report ---
[facility] Test Date: 2020-11-22 Test Time: 23:32:18 Pat Name: MEKHI FUNEZ Department: Room: A479 1 Gender: M Senior Courtroom Clerk: ANDREA : 1950 Requested By: FAN JACKSON Order Number: [id number] Reading MD: Kim Camp Measurements Intervals [place] Rate: 70 P: 58 MO: 146 QRS: 33 QRSD: 182 T: 190 QT: 488 QTc: 527 Interpretive Statements Atrial-ventricular dual-paced rhythm Compared to ECG 10/22/2020 15:57:55 Electronically Signed On 11-24-2020 10:45:24 EDT by Kim Camp
--- NOTE | 2020-11-24 10:47 | Treadmill Report ---
[facility] Test Date: 2020-11-23 Test Time: 06:57:58 Pat Name: MEKHI FUENZ Department: Room: A479 1 Gender: M Marketing And Outreach Coordinator: Juliana Barrientos : 1950 Requested By: SHARLENE ISAAC Order Number: [id number] Reading MD: Kim Camp Interpretive Statements See dictated report Electronically Signed On 11-24-2020 10:46:51 EDT by Kim Camp
--- NOTE | 2020-11-24 10:47 | Electrocardiograph Report ---
[facility] Test Date: 2020-11-23 Test Time: 07:36:46 Pat Name: MEKHI FUNEZ Department: Room: A479 1 Gender: M Substation Operator Apprentice: JIGNESH : 1950 Requested By: SHARLENE ISAAC Order Number: [id number] Reading MD: Kim Camp Measurements Intervals [place] Rate: 76 P: 67 MS: 165 QRS: 46 QRSD: 173 T: 189 QT: 468 QTc: 526 Interpretive Statements Atrial-sensed ventricular-paced rhythm Compared to ECG 11/22/2020 23:32:18 Electronically Signed On 11-24-2020 10:47:02 EDT by Kim Camp
--- NOTE | 2020-11-24 10:52 | Electrocardiograph Report ---
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
--- NOTE | 2020-11-24 13:48 | Discharge Summary ---
Providers - Providers Date of Admission: 11/23/20 00:59 Date of discharge: 11/25/20 Attending physician: ROSALINE MCCRACKEN 11/23/20 Consult to Cardiac Rehabilitation [CONS] Routine Reason For Exam: Phase I 11/23/20 01:09 Consult to Cardiology [CONS] Routine Consulting Provider: JEANIE WERNER Reason For Exam: Chest Pain Consult to Dietitian/Nutrition [CONS] Routine Physician Instructions: Reason For Exam: Reason for Consult: Diet education 11/23/20 17:05 Physical Therapy Evaluation and Treat [CONS] Urgent Comment: Reason For Exam: please eval for gait weakness Primary care physician: SUSANA ALLEN MD Hospitalization Condition: Fair Hospital course: 70-year-old -[place] male with known history of coronary artery disease, diabetes mellitus, hypertension, CHF and CVA in the past presenting to the emergency room today complaining of midsternal chest pain and a syncopal episode. Patient states that he was at a restaurant when he suddenly passed out and fell to the floor. Patient also indicates that he bumped his head and he has had some mild headache since then. He denies any shortness of breath, no nausea or vomiting, no abdominal pain, no blurry vision, no diaphoresis, no fever or chills. Patient indicates that he follows up with a stenciling machine tender at [facility]. He received a full dose of aspirin and sublingual nitroglycerin from EMS en route to the hospital. He has had some significant improvement in his chest pain. Work-up in the emergency room today occluding chest x-ray, EKG and labs have been unremarkable. Patient is being admitted for chest pain work-up. Hospital course 11/23. Cardiology was consulted. Patient had a stress test performed that showed no reversible ischemia. Patient's AICD to be interrogated. 11/24. AICD showed no significant arrhythmias. Patient's blood pressure medications sent from PCPs office has been reviewed. He is on multiple blood pressure medications. Suspect etiology of syncopal episode likely from hypotension. He has been on only Coreg during his admission and blood pressure has remained stable. Orthostatic vitals showed no orthostatic hypotension. 11/25. No complaint this AM. Blood pressure remained stable. He will continue to hold ACEI/ARB and Imdur for now until he sees his stenciling machine tender in the office. He has also been advised to continue his antiseizure medications at home and follow-up with a neurologist in the office. He agrees with plan Final Discharge Diagnosis (Prints w/discharge instructions): Chest pain Time spent for discharge: 25 mins Core Measure Documentation - Palliative Care Palliative Care/ Comfort Measures: Not Applicable - Core Measures Any of the following diagnoses?: none Exam - Constitutional Vitals: Temp Pulse Resp BP Pulse Ox 97.4 F L 69 18 101/56 98 11/24/20 07:53 11/24/20 09:41 11/24/20 08:16 11/24/20 09:41 11/24/20 08:16 General appearance: Present: no acute distress, well-nourished - EENT Eyes: Present: PERRL ENT: hearing intact, clear oral mucosa - Neck Neck: Present: supple, normal ROM - Respiratory Respiratory effort: normal Respiratory: bilateral: CTA - Cardiovascular Heart Sounds: Present: S1 & S2. Absent: rub, click - Extremities Extremities: pulses symmetrical, No edema Peripheral Pulses: within normal limits - Abdominal General gastrointestinal: Present: soft, non-tender, non-distended, normal bowel sounds Male genitourinary: Present: normal - Integumentary Integumentary: Present: clear, warm, dry - Musculoskeletal Musculoskeletal: gait normal, strength equal bilaterally - Psychiatric Psychiatric: appropriate mood/affect, intact judgment & insight - Neurologic Neurologic: CNII-XII intact, moves all extremities Plan Additional Instructions: Stop valsartan, imdur and lisnopril. Continue coreg. Continue home seizure medications. Follow-up with neurologist in the office in [address], swim or operate heavy machinery until you see your primary medical doctor or a neurologist. Follow up with your primary stenciling machine tender in 1 week Follow up with: SUSANA ALLEN MD [Primary Care Provider] - 3-5 Days JAYY DIXON MD [Referring] - 7 Days
--- NOTE | 2020-11-24 14:26 | Cat Scan Report ---
CT HEAD WITHOUT CONTRAST INDICATION / CLINICAL INFORMATION: Seizure. TECHNIQUE: Axial imaging performed from the skull apex through the skull base without the use of cont rast. Sagittal and coronal reformatted images. All CT scans at this location are performed using CT dose reduction for ALARA by means of automated exposure control. COMPARISON: 11/23/2020 FINDINGS: CEREBRAL PARENCHYMA: No significant abnormality. No acute territorial infarct. HEMORRHAGE: None. EXTRA-AXIAL SPACES: Normal in size and morphology for the patient's age. VENTRICULAR SYSTEM: Normal in size and morphology for the patient's age. MIDLINE SHIFT OR HERNIATION: None. CEREBELLUM / BRAINSTEM: No significant abnormality. CALVARIUM: No significant abnormality. ORBITS: Normal as visualized. PARANASAL SINUSES / MASTOID AIR CELLS: Normal as visualized. SOFT TISSUES of HEAD: No significant abnormality. ADDITIONAL FINDINGS: None. IMPRESSION: No acute intracranial abnormality. No significant change since 11/15/2020. Signer Name: Diaz Marks Jr, MD Signed: 11/24/2020 2:21 PM Workstation Name: [id number]
[2020-11-24 16:32] LABS: INR 1.1 (0.87-1.13)
[2020-11-24 16:33] LABS: Partial Thromboplastin Time 34.8 Sec. (24.2-36.6)
[2020-11-24] MEDS: diphenhydrAMINE 50 MG CAP PO SCH (21:53)
[2020-11-24] MEDS: MIRTAZAPINE 15 MG TAB PO SCH (21:53)
[2020-11-25] MEDS: HEPARIN 5,000 UNIT/1 ML VIAL SUB-Q SCH (05:54)
[2020-11-25] MEDS: risperiDONE 1 MG TAB PO SCH (10:15)
[2020-11-25] MEDS: BENZTROPINE 1 MG TAB PO SCH (10:15)
[2020-11-25] MEDS: SERTRALINE 100 MG TAB PO SCH (10:15)
[2020-11-25] MEDS: POTASSIUM CHLORIDE 20 MEQ PACKET PO SCH (10:15)
[2020-11-25] MEDS: carvediloL 25 MG TAB PO SCH (10:15)
[2020-11-25] MEDS: ASPIRIN EC 325 MG TAB PO SCH (10:15)
[2020-11-25] MEDS: PANTOPRAZOLE 20 MG TAB PO SCH (10:16)
[2020-11-25] MEDS: INSULIN LISPRO 100 UNIT/ML SUB-Q SCH (10:18)
--- NOTE | 2020-11-25 11:03 | Progress Note ---
Assessment and Plan Syncope Lexiscan thallium stress test this admission - no reversible ischemia Echocardiogram showed persistent dilated cardiomyopathy, ejection fraction 15-20%. ICD interrogation: no evidence of ventricular arrhythmias. Normal functioning device. Hx of coronary artery disease s/p 3V bypass surgery at [facility] Hx of ischemic cardiomyopathy Presence of internal cardiac defibrillator ([facility]) Seizures disorder Hypertension Recommendations: Continue medical therapy for ischemic cardiomyopathy and coronary artery d isease. Stable cardiac ferrell for discharge. Patient advised to follow up with his primary grubber at [place]. Subjective Date of service: 11/25/20 Interval history: Patient has no cardiac complaints. No events reported on telemetry overnight. Objective Vital Signs Temp Pulse Pulse Resp BP Pulse Ox 11/25/20 08:51 72 11/25/20 05:00 72 11/25/20 04:36 97.9 F 70 18 116/51 97 11/24/20 23:08 97.8 F 71 17 119/67 97 11/24/20 22:47 70 20 97 11/24/20 21:53 74 129/71 11/24/20 21:00 70 11/24/20 20:02 97.6 F 71 18 129/71 96 11/24/20 17:13 71 116/66 98 - Physical Examination General: No Apparent Distress HEENT: Positive: PERRL Neck: Positive: neck supple Cardiac: Positive: Other (paced) Lungs: Positive: Decreased Breath Sounds Neuro: Positive: Grossly Intact Extremities: Absent: edema - Labs and Meds Coagulation 11/24/20 Range/Units 15:01 PT 14.1 (12.2-14.9) Sec. INR 1.10 (0.87-1.13) APTT 34.8 (24.2-36.6) Sec.
--- NOTE | 2020-11-25 11:55 | Progress Note ---
Assessment and Plan Assessment and plan: (1) Acute chest pain Musculoskeletal Stress test negative Follow-up with cardiology in the office (2) Syncope Current Visit: Yes Status: Acute Qualifiers: Syncope type: unspecified Qualified Code(s): R55 - Syncope and collapse Plan to address problem: From orthostatic hypotension - he is on multiple blood pressure medications No seizure activity after he passed out Blood pressure medications adjusted (3) Hypertension Current Visit: No Status: Acute Qualifiers: Hypertension type: essential hypertension Qualified Code(s): I10 - Essential (primary) hypertension Plan to address problem: We will resume routine home medications and monitor vital signs closely. (4) Hyperlipidemia Current Visit: No Status: Chronic Plan to address problem: Will monitor lipid profile. (5) DVT prophylaxis Current Visit: No Status: Acute Plan to address problem: Patient placed on subcutaneous heparin. (6) Full code status Current Visit: Yes Status: Acute Plan to address problem: Patient is full code. History Interval history: 70-year-old -[place] male with known history of coronary artery disease, diabetes mellitus, hypertension, CHF and CVA in the past presenting to the emergency room today complaining of midsternal chest pain and a syncopal episode. Patient states that he was at a restaurant when he suddenly passed out and fell to the floor. Patient also indicates that he bumped his head and he has had some mild headache since then. He denies any shortness of breath, no nausea or vomiting, no abdominal pain, no blurry vision, no diaphoresis, no fever or chills. Patient indicates that he follows up with a laboratory veterinarian at [facility] [place]. He received a full dose of aspirin and sublingual nitroglycerin from EMS en route to the hospital. He has had some significant improvement in his chest pain. Work-up in the emergency room today occluding chest x-ray, EKG and labs have been unremarkable. Patient is being admitted for chest pain work-up. Hospital course 11/23. Cardiology was consulted. Patient had a stress test performed that showed no reversible ischemia. Patient's AICD to be interrogated. 11/24. AICD showed no significant arrhythmias. Patient's blood pressure medications sent from PCPs office has been reviewed. He is on multiple blood pressure medications. Suspect etiology of syncopal episode likely from hypotension. He has been on only Coreg during his admission and blood pressure has remained stable. Orthostatic vitals showed no orthostatic hypotension. Hospitalist Physical - Physical exam Narrative exam: VITAL SIGNS: Reviewed. GENERAL: Awake HEAD: No signs of head trauma. EYES: Pupils are equal. Extraocular motions intact. MOUTH: Oropharynx is normal. NECK: No adenopathy, no JVD. CHEST: Chest with diminished breath sounds bilaterally. No wheezes, rales, or rhonchi. CARDIAC: normal S1 and S2, without murmurs, gallops, or rubs. ABDOMEN: Soft, non tender and non distended. No rebound or guarding, and no masses palpated. Bowel Sounds normal. MUSCULOSKELETAL: No edema NEUROLOGIC EXAM: Alert and oriented x3. No focal neurologic deficits SKIN: No obvious lesions - Constitutional Vitals: Temp Pulse Resp BP Pulse Ox 97.9 F 72 18 116/51 97 11/25/20 04:36 11/25/20 08:51 11/25/20 04:36 11/25/20 04:36 11/25/20 04:36 HEART Score - HEART Score EKG: Non-specific Age: > 65 Risk factors: > 3 risk factors or hx of atherosclerotic disease Troponin: Troponin T < 0.010 ng/mL (0.00-0.029) 11/23/20 06:21 Troponin: < normal limit Results - Labs CBC & Chem 7: 11/24/20 04:46 11/24/20 04:46 Labs: Laboratory Last Values WBC 6.6 K/mm3 (4.5-11.0) 11/24/20 04:46 RBC 4.36 M/mm3 (3.65-5.03) 11/24/20 04:46 Hgb 12.1 gm/dl (11.8-15.2) 11/24/20 04:46 Hct 36.2 % (35.5-45.6) 11/24/20 04:46 MCV 83 fl (84-94) L 11/24/20 04:46 MCH 28 pg (28-32) 11/24/20 04:46 MCHC 34 % (32-34) 11/24/20 04:46 RDW 14.6 % (13.2-15.2) 11/24/20 04:46 Plt Count 161 K/mm3 (140-440) 11/24/20 04:46 Lymph % (Auto) 18.0 % (13.4-35.0) 11/24/20 04:46 Cavalier % (Auto) 8.2 % (0.0-7.3) H 11/24/20 04:46 Eos % (Auto) 0.2 % (0.0-4.3) 11/24/20 04:46 Baso % (Auto) 0.8 % (0.0-1.8) 11/24/20 04:46 Lymph # (Auto) 1.2 K/mm3 (1.2-5.4) 11/24/20 04:46 Cavalier # (Auto) 0.5 K/mm3 (0.0-0.8) 11/24/20 04:46 Eos # (Auto) 0.0 K/mm3 (0.0-0.4) 11/24/20 04:46 Baso # (Auto) 0.1 K/mm3 (0.0-0.1) 11/24/20 04:46 Seg Neutrophils % 72.8 % (40.0-70.0) H 11/24/20 04:46 Seg Neutrophils # 4.8 K/mm3 (1.8-7.7) 11/24/20 04:46 PT 14.1 Sec. (12.2-14.9) 11/24/20 15:01 INR 1.10 (0.87-1.13) 11/24/20 15:01 APTT 34.8 Sec. (24.2-36.6) 11/24/20 15:01 Sodium 140 mmol/L (137-145) 11/24/20 04:46 Potassium 4.1 mmol/L (3.6-5.0) 11/24/20 04:46 Chloride 105.3 mmol/L (98-107) 11/24/20 04:46 Carbon Dioxide 25 mmol/L (22-30) 11/24/20 04:46 Anion Gap 14 mmol/L 11/24/20 04:46 BUN 18 mg/dL (9-20) 11/24/20 04:46 Creatinine 1.1 mg/dL (0.8-1.3) D 11/24/20 04:46 Estimated GFR > 60 ml/min 11/24/20 04:46 BUN/Creatinine Ratio 16 % 11/24/20 04:46 Glucose 113 mg/dL (75-100) H 11/24/20 04:46 POC Glucose 113 mg/dL (70-105) H 11/25/20 07:45 Calcium 8.7 mg/dL (8.4-10.2) 11/24/20 04:46 Total Bilirubin 0.30 mg/dL (0.1-1.2) 11/22/20 23:40 AST 26 units/L (5-40) 11/22/20 23:40 ALT 30 units/L (7-56) 11/22/20 23:40 Alkaline Phosphatase 91 units/L (35-129) 11/22/20 23:40 Troponin T < 0.010 ng/mL (0.00-0.029) 11/23/20 06:21 Total Protein 6.7 g/dL (6.3-8.2) 11/22/20 23:40 Albumin 4.4 g/dL (3.9-5) 11/22/20 23:40 Albumin/Globulin Ratio 1.9 % 11/22/20 23:40 TSH 0.464 mlU/mL (0.270-4.200) 11/22/20 23:40 Free T4 1.26 ng/dL (0.76-1.46) 11/22/20 23:40 Urine Color Straw (Yellow) 11/23/20 01:07 Urine Turbidity Clear (Clear) 11/23/20 01:07 Urine pH 5.5 (5.0-7.0) 11/23/20 01:07 Ur Specific Wittmann 1.004 (1.003-1.030) 11/23/20 01:07 Urine Protein 30 mg/dl mg/dL (Negative) 11/23/20 01:07 Urine Glucose (UA) Negative mg/dL (Negative) 11/23/20 01:07 Urine Ketones Negative mg/dL (Negative) 11/23/20 01:07 Urine Blood Negative (Negative) 11/23/20 01:07 Urine Nitrite Negative (Negative) 11/23/20 01:07 Urine Bilirubin Negative (Negative) 11/23/20 01:07 Urine Urobilinogen < 2.0 mg/dL (<2.0) 11/23/20 01:07 Ur Leukocyte Esterase Negative (Negative) 11/23/20 01:07 Urine WBC (Auto) 0.0 /HPF (0.0-6.0) 11/23/20 01:07 Urine RBC (Auto) 0.0 /HPF (0.0-6.0) 11/23/20 01:07 Urine Opiates Screen Presumptive negative 11/23/20 01:07 Urine Methadone Screen Presumptive negative 11/23/20 01:07 Ur Barbiturates Screen Presumptive negative 11/23/20 01:07 Ur Phencyclidine Scrn Presumptive negative 11/23/20 01:07 Ur Amphetamines Screen Presumptive negative 11/23/20 01:07 U Benzodiazepines Scrn Presumptive negative 11/23/20 01:07 Urine Cocaine Screen Presumptive negative 11/23/20 01:07 U Marijuana (THC) Screen Presumptive negative 11/23/20 01:07 Drugs of Abuse Note Disclamer 11/23/20 01:07 Philip/IV: Voiding Method Urinal Active Medications - Current Medications Current Medications: Generic Name Dose Route Start Last Admin Trade Name Freq PRN Reason Stop Dose Admin Acetaminophen 650 mg 11/23/20 01:09 11/23/20 09:55 Acetaminophen 325 Mg Tab PO 650 mg Q4H PRN Administration Pain MILD(1-3)/Fever >100.5/AGOSTO Aspirin 325 mg 11/24/20 10:00 11/25/20 10:15 Aspirin Ec 325 Mg Tab PO 325 mg QDAY AMBIKA Administration Atorvastatin Calcium 20 mg 11/23/20 22:00 11/24/20 21:53 Atorvastatin 20 Mg Tab PO 20 mg QHS AMBIKA Administration Benztropine Mesylate 1 mg 11/23/20 10:00 11/25/20 10:15 Benztropine 1 Mg Tab PO 1 mg BID AMBIKA Administration Carvedilol 25 mg 11/23/20 10:00 11/25/20 10:15 Carvedilol 25 Mg Tab PO 25 mg BID AMBIKA Administration Dextrose 50 ml 11/23/20 01:09 Dextrose 50% In Water (25gm) 50 Ml Syringe IV Q30MIN PRN Hypoglycemia Protocol Diphenhydramine HCl 50 mg 11/23/20 22:00 11/24/20 21:53 Diphenhydramine 50 Mg Cap PO 50 mg HS AMBIKA Administration Heparin Sodium (Porcine) 5,000 unit 11/23/20 06:00 11/25/20 05:54 Heparin 5,000 Unit/1 Ml Vial SUB-Q 5,000 unit Q8HR AMBIKA Administration Insulin Human Lispro 0 unit 11/23/20 07:30 11/25/20 10:18 Insulin Lispro 100 Unit/Ml SUB-Q Not Given ACHS AMBIKA Protocol Magnesium Hydroxide 30 ml 11/23/20 01:09 Magnesium Hydroxide (Mom) Oral Liqd Udc PO Q4H PRN Constipation Mirtazapine 15 mg 11/23/20 22:00 11/24/20 21:53 Mirtazapine 15 Mg Tab PO 15 mg HS AMBIKA Administration Morphine Sulfate 2 mg 11/23/20 01:09 11/23/20 06:51 Morphine 4 Mg/1 Ml Inj IV 2 mg Q5MIN PRN Administration Chest Pain Nitroglycerin 0.4 mg 11/23/20 01:09 Nitroglycerin 0.4 Mg Tab Subl SL Q5M PRN Chest Pain Ondansetron HCl 4 mg 11/23/20 01:09 Ondansetron 4 Mg/2 Ml Inj IV Q8H PRN Nausea And Vomiting Pantoprazole Sodium 20 mg 11/23/20 10:00 11/25/20 10:16 Pantoprazole 20 Mg Tab PO 20 mg BID AMBIKA Administration Potassium Chloride 20 meq 11/23/20 10:00 11/25/20 10:15 Potassium Chloride 20 Meq Packet PO 20 meq DAILY AMBIKA Administration Risperidone 2 mg 11/23/20 10:00 11/25/20 10:15 Risperidone 1 Mg Tab PO 2 mg QDAY AMBIKA Administration Sertraline HCl 100 mg 11/23/20 10:00 11/25/20 10:15 Sertraline 100 Mg Tab PO 100 mg QDAY AMBIKA Administration Sodium Chloride 10 ml 11/23/20 10:00 11/25/20 10:18 Sodium Chloride 0.9% 10 Ml Flush Syringe IV 10 ml BID AMBIKA Administration Sodium Chloride 10 ml 11/23/20 01:09 Sodium Chloride 0.9% 10 Ml Flush Syringe IV PRN PRN LINE FLUSH Tramadol HCl 50 mg 11/23/20 01:09 Tramadol 50 Mg Tab PO Q6H PRN Pain, Moderate (4-6) Zolpidem Tartrate 10 mg 11/23/20 04:51 Zolpidem 5 Mg Tab PO QHS PRN Sleep Nutrition/Malnutrition Assess - Dietary Evaluation Nutrition/Malnutrition Findings: Nutrition Notes Start: 11/23/20 09:41 Freq: Status: Active Protocol: Document 11/25/20 10:15 (Rec: 11/25/20 10:24 [id number]) Nutrition Notes Initial or Follow up Brief Note Current Diagnosis Coronary Artery Disease, Diabetes,Hypertension,Heart Failure,Stroke,Hyperlipidemia Current Diet Cardiac Labs/Tests Reviewed Pertinent Medications Remeron Height 5 ft 8 in Weight 65.7 kg Usual Body Weight 87.27 kg [place] Body Weight (kg) 70.00 BMI 22.0 Weight change and time frame 25% wt loss in one year Weight Status Appropriate Subjective/Other Information FU for diet education. Pt reports he is just trying to eat right now and isn't able to focus on what to or not to eat. Pt with decreased appetite for 1 year related to stress and worse now for 2-3 weeks due to feeling ill. Pt given handout for when his appetite is back. Pt ate 65% of breakfast. Burn Absent Trauma Absent GI Symptoms None Current % PO Fair (50-74%) Minimum of two criteria Yes Energy Intake (non-severe) <75% Estimated Energy Requirement >7 days Interpretation of Weight Loss (severe) > 20% in 1 year #1 Nutrition Diagnosis Malnutrition Etiology stress, and acute illness As Evidenced by Signs and Symptoms <75% of EER in > or = 7 days, 25% wt loss in one year Is patient on ventilator? No Is Patient Ambulatory and/or Out of Bed Yes REE-([facility]-ambulatory/OOB) [ [id number] [id number]] Calculation Used for Recommendations [facility] Additional Notes Protein: (1.2-1.5g/kg) 79-99g Fluid: 1 ml/kcal or per Nutrition Intervention Change Diet Order: Continue with consistent CHO Add Supplement/Snack (indicate name/kcal Glucerna BID /protein ) Provides kCal: 440 Provides Protein (gm) 20 Teaching Recipient Patient Learning Readiness Good Teaching Methods Handout Response to Teaching Verbalize understanding Education Handouts Provided Heart Healthy Nutrition Therapy Barriers to Learning No Barriers RD phone number provided Yes Patient aware of follow up options Yes Goal #1 Meet at least 75% of protein and energy needs via PO and ONS intakes Anticipated Discharge Needs: Cardiac, Consistent CHO Follow-Up By: 11/29/20 Additional Comments FU for intakes and ONS tolerance
[2020-11-25 16:30] VITALS: BP 134/80
== END 2020-11-25 18:12 | disposition home health service (06) | DRG 313 ==
LOC: ED 23:02 → 4A 11-23 00:59 → OBSVTOIN 11-23 08:00
PROVIDERS: ADMIT Internal Medicine Geriatric Medicine; ATTEND Internal Medicine
DX: R07.89 Other chest pain (principal); I42.8 Other cardiomyopathies; I95.1 Orthostatic hypotension; I11.0 Hypertensive heart disease with heart failure; I25.10 Atherosclerotic heart disease of native coronary artery without angina pectoris; F10.10 Alcohol abuse, uncomplicated; E78.5 Hyperlipidemia, unspecified; I50.9 Heart failure, unspecified; E11.9 Type 2 diabetes mellitus without complications; F20.9 Schizophrenia, unspecified; F41.9 Anxiety disorder, unspecified; F32.9 Major depressive disorder, single episode, unspecified; Z86.79 Personal history of other diseases of the circulatory system; Z95.1 Presence of aortocoronary bypass graft; Z95.0 Presence of cardiac pacemaker; Z79.899 Other long term (current) drug therapy; Z95.818 Presence of other cardiac implants and grafts; Z79.891 Long term (current) use of opiate analgesic; Z79.01 Long term (current) use of anticoagulants; Z79.82 Long term (current) use of aspirin; Z86.73 Personal history of transient ischemic attack (TIA), and cerebral infarction without residual deficits; Z90.49 Acquired absence of other specified parts of digestive tract
CPT/HCPCS: 36415; 70450; 71045; 78452; 80048; 80053; 80307; 81001; 82962; 84439; 84443; 84484; 85025; 85610; 85730; 93005; 93017; 93306; G0378; A9270-GY; A9502; J1644; J1815; J2270; J2785; J7030

== ENCOUNTER 2020-11-29 17:06 | Observation (INO) | payer MEDICARE ==
--- NOTE | 2020-11-29 17:39 | Emergency Department Report ---
ED Chest Pain HPI - General Chief Complaint: Chest Pain Stated Complaint: CHEST PAIN Time Seen by Provider: 11/29/20 17:23 Source: patient, EMS Mode of arrival: Stretcher Limitations: No Limitations - History of Present Illness Initial Comments: Patient is 70 years old male with history of CABG, hypertension and AICD. Patient presented to the ER complaining of substernal chest pain, heaviness in nature with no radiation. Patient stated that pain continued for approximately 5 minutes and associated with sweating. Patient was seen here last week and admitted for chest pain work-up and discharged after a negative stress test. Patient stated that her symptom is much better after the nitroglycerin. Patient denied any fever, chills or cough. MD Complaint: chest pain -: Sudden, This afternoon Onset: during rest Pain Location: substernal Pain Radiation: none Severity: moderate Severity scale (0 -10): 6 Quality: tightness Consistency: constant Improves With: nitroglycerin Worsens With: exertion - Related Data Home Medications Medication Instructions Recorded Confirmed Last Taken Mirtazapine 15 mg PO HS 04/08/16 11/23/20 11/21/20 21:00 Zolpidem [Ambien] 10 mg PO QHS PRN 04/08/16 11/23/20 11/21/20 21:00 diphenhydrAMINE [Benadryl CAP] 50 mg PO HS 04/08/16 11/23/20 11/22/20 21:00 risperiDONE 2 mg PO QDAY 04/08/16 11/23/20 11/22/20 09:00 Previous Rx's Medication Instructions Recorded Last Taken Type Sertraline [Zoloft] 100 mg PO QDAY #30 tablet 12/10/14 11/21/20 21:00 Rx glipiZIDE [Glucotrol] 5 mg PO BID #60 tablet 12/10/14 11/22/20 09:00 Rx Aspirin [Aspirin BABY CHEW TAB] 81 mg PO QDAY #30 tab.chew 12/13/14 11/22/20 09:00 Rx Benztropine [Cogentin] 1 mg PO BID #60 tablet 12/13/14 11/21/20 21:00 Rx Nitroglycerin [Nitrostat] 0.4 mg SL Q5M PRN #30 tab 12/13/14 11/22/20 12:00 Rx Rosuvastatin (Nf) [Crestor] 10 mg PO QHS #30 tablet 12/13/14 11/22/20 21:00 Rx carvediloL [Coreg] 25 mg PO BID #60 tablet 12/13/14 11/22/20 09:00 Rx Pantoprazole [Protonix TAB] 20 mg PO BID #60 tablet. 04/13/16 11/22/20 09:00 Rx Potassium Chloride [Klor-Con M20] 20 meq PO DAILY #15 tab.er.prt 12/28/17 11/21/20 21:00 Rx Sulfamethoxazole/Trimethoprim 1 each PO BID 5 Days #10 tablet 10/22/20 11/21/20 21:00 Rx [Bactrim DS TAB] Allergies Allergy/AdvReac Type Severity Reaction Status Date / Time No Known Allergies Allergy Verified 04/17/16 15:54 Heart Score - HEART Score History: Moderately suspicious EKG: Non-specific Age: > 65 Risk factors: > 3 risk factors or hx of atherosclerotic disease Troponin: < normal limit HEART Score: 6 - EKG Read Time Time EKG Completed: 17:12 EKG Read Time: 17:12 ED Review of Systems ROS: Stated complaint: CHEST PAIN Other details as noted in HPI Comment: All other systems reviewed and negative Constitutional: denies: chills, fever Respiratory: denies: cough, shortness of breath, SOB with exertion Cardiovascular: chest pain. denies: palpitations, dyspnea on exertion Gastrointestinal: denies: abdominal pain, nausea, vomiting, diarrhea Genitourinary: denies: urgency Musculoskeletal: denies: back pain Neurological: denies: headache, weakness, numbness, paresthesias ED Past Medical Hx - Past Medical History Hx Hypertension: Yes Hx CVA: Yes Hx Heart Attack/AMI: Yes Hx Congestive Heart Failure: Yes Hx Diabetes: Yes Hx Seizures: Yes Hx Psychiatric Treatment: Yes (IP and OP tx, [place], [facility], [place]/ ANXIETY / DEPRESSION/schizophrenia) Hx Asthma: No Hx COPD: No Additional medical history: Cardiomyopathy. CAD with 50% LAD lesion. pacemaker - Surgical History Hx Coronary Stent: Yes Hx Open Heart Surgery: Yes Hx Pacemaker: Yes Hx Internal Defibrillator: Yes (pacemaker) Hx Appendectomy: Yes Additional Surgical History: R foot surgery /OPEN HEART - Social History Smoking Status: Never Smoker Substance Use Type: Alcohol - Medications Home Medications: Home Medications Medication Instructions Recorded Confirmed Last Taken Type Sertraline [Zoloft] 100 mg PO QDAY #30 tablet 12/10/14 11/23/20 11/21/20 21:00 Rx glipiZIDE [Glucotrol] 5 mg PO BID #60 tablet 12/10/14 11/23/20 11/22/20 09:00 Rx Aspirin [Aspirin BABY CHEW TAB] 81 mg PO QDAY #30 tab.chew 12/13/14 11/23/20 11/22/20 09:00 Rx Benztropine [Cogentin] 1 mg PO BID #60 tablet 12/13/14 11/23/20 11/21/20 21:00 Rx Nitroglycerin [Nitrostat] 0.4 mg SL Q5M PRN #30 tab 12/13/14 11/23/20 11/22/20 12:00 Rx Rosuvastatin (Nf) [Crestor] 10 mg PO QHS #30 tablet 12/13/14 11/23/20 11/22/20 21:00 Rx carvediloL [Coreg] 25 mg PO BID #60 tablet 12/13/14 11/23/20 11/22/20 09:00 Rx Mirtazapine 15 mg PO HS 04/08/16 11/23/20 11/21/20 21:00 History Zolpidem [Ambien] 10 mg PO QHS PRN 04/08/16 11/23/20 11/21/20 21:00 History diphenhydrAMINE [Benadryl CAP] 50 mg PO HS 04/08/16 11/23/20 11/22/20 21:00 History risperiDONE 2 mg PO QDAY 04/08/16 11/23/20 11/22/20 09:00 History Pantoprazole [Protonix TAB] 20 mg PO BID #60 tablet. 04/13/16 11/23/20 11/22/20 09:00 Rx Potassium Chloride [Klor-Con M20] 20 meq PO DAILY #15 tab.er.prt 12/28/17 11/23/20 11/21/20 21:00 Rx Sulfamethoxazole/Trimethoprim 1 each PO BID 5 Days #10 tablet 10/22/20 11/23/20 11/21/20 21:00 Rx [Bactrim DS TAB] ED Physical Exam - General Limitations: No Limitations General appearance: alert, in no apparent distress - Head Head exam: Present: atraumatic, normocephalic, normal inspection - Eye Eye exam: Present: normal appearance - ENT ENT exam: Present: normal exam, normal orophraynx, mucous membranes moist - Neck Neck exam: Present: normal inspection, full ROM. Absent: tenderness, meningismus - Respiratory Respiratory exam: Present: normal lung sounds bilaterally - Cardiovascular Cardiovascular Exam: Present: regular rate, normal rhythm, normal heart sounds - GI/Abdominal GI/Abdominal exam: Present: soft, normal bowel sounds. Absent: distended, tenderness, guarding, rebound, rigid, organomegaly, mass, bruit, pulsatile mass, hernia - Extremities Exam Extremities exam: Present: normal inspection, full ROM, normal capillary refill. Absent: tenderness, pedal edema, joint swelling, calf tenderness - Back Exam Back exam: Present: normal inspection, full ROM. Absent: CVA tenderness (R), CVA tenderness (L) - Neurological Exam Neurological exam: Present: alert, oriented X3, CN II-XII intact - Psychiatric Psychiatric exam: Present: normal mood - Skin Skin exam: Present: warm, intact, normal color ED Course Vital Signs 11/29/20 11/29/20 11/29/20 17:21 17:37 17:42 Temperature 98.5 F Pulse Rate 73 72 Respiratory 20 20 Rate Blood Pressure 113/85 O2 Sat by Pulse 100 100 Oximetry GABE score - Gabe Score Age > 65: (1) Yes Aspirin use within the Past 7 Days: (0) No 3 or more CAD Risk Factors: (1) Yes 2 or more Angina events in past 24 hrs: (1) Yes Known CAD with more than 50% Stenosis: (1) Yes Elevated Cardiac Markers: (0) No ST Deviation Greater than 0.5mm: (1) Yes GABE Score: 5 ED Medical Decision Making - Lab Data Result diagrams: 11/29/20 17:34 11/29/20 17:34 - EKG Data -: EKG Interpreted by Me EKG shows normal: sinus rhythm Rate: normal - EKG Data Interpretation: no acute changes - Radiology Data Radiology results: report reviewed - Medical Decision Making Patient is 70 years old male with history of CABG, hypertension and AICD. Patient presented to the ER complaining of substernal chest pain, heaviness in nature with no radiation. Patient stated that pain continued for approximately 5 minutes and associated with sweating. Patient was seen here last week and admitted for chest pain work-up and discharged after a negative stress test. Patient stated that her symptom is much better after the nitroglycerin. Patient denied any fever, chills or cough. EKG showed no significant changes from previous EKG. Chest x-ray is unremarkable. Labs reviewed and is negative so far. Patient stated that chest pain is completely resolved after the nitroglycerin. I discussed the patient with Dr. Abbasi, he agreed to admit the patient to medical service for further management. Critical care attestation.: If time is entered above; I have spent that time in minutes in the direct care of this critically ill patient, excluding procedure time. ED Disposition Clinical Impression: Acute chest pain Disposition: 09 OP ADMIT IP TO THIS HOSP Is pt being admited?: Yes Condition: Stable Instructions: Chest Pain (ED)
[2020-11-29 17:51] LABS: Basophils % (Auto) 0.5 % (0.0-1.8); Eosinophils % (Auto) 0.7 % (0.0-4.3); Hematocrit 40.4 % (35.5-45.6); Hemoglobin 13.2 gm/dl (11.8-15.2); Lymphocytes # (Auto) 0.9 K/mm3 (1.2-5.4); Lymphocytes % (Auto) 15.3 % (13.4-35.0); Mean Corpuscular HGB Conc 33 % (32-34); Mean Corpuscular Volume 85 fl (84-94); Monocytes # (Auto) 0.4 K/mm3 (0.0-0.8); Monocytes % (Auto) 6.2 % (0.0-7.3); Platelet Count 181 K/mm3 (140-440); Red Blood Count 4.74 M/mm3 (3.65-5.03); Red Cell Distribution Width 14.3 % (13.2-15.2)
[2020-11-29 18:07] LABS: INR 1.06 (0.87-1.13)
[2020-11-29 18:08] LABS: Partial Thromboplastin Time 27.3 Sec. (24.2-36.6)
[2020-11-29 18:30] LABS: Alanine Aminotransferase 29 units/L (7-56); BUN/Creatinine Ratio 13; Blood Urea Nitrogen 12 mg/dL (9-20); Calcium 8.6 mg/dL (8.4-10.2); Hemolysis Index 8
--- NOTE | 2020-11-29 18:44 | XRay Report ---
CHEST 1 VIEW 11/29/2020 5:33 PM INDICATION / CLINICAL INFORMATION: chest pain. COMPARISON: 11/22/20 FINDINGS: SUPPORT DEVICES: None. HEART / MEDIASTINUM: Stable. CABG hardware and left-sided biventricular AICD are unchanged. LUNGS / PLEURA: No significant pulmonary or pleural abnormality. No pneumothorax. ADDITIONAL FINDINGS: No significant additional findings. IMPRESSION: 1. No acute findings. No change. Signer Name: Zafar Conrad MD Signed: 11/29/2020 6:39 PM Workstation Name: [id number]
[2020-11-29] MEDS ORDERED: ONDANSETRON 4 MG/2 ML INJ IV ONE (18:59)
[2020-11-29] MEDS ORDERED: MORPHINE 2 MG/1 ML INJ IV ONE (18:59)
[2020-11-30] MEDS ORDERED: NITROGLYCERIN 0.4 MG TAB SUBL SL PRN (01:01)
[2020-11-30] MEDS ORDERED: ZOLPIDEM 5 MG TAB PO PRN (01:01)
[2020-11-30] MEDS ORDERED: MORPHINE 2 MG/1 ML INJ IV PRN (01:04)
[2020-11-30] MEDS ORDERED: oxyCODONE /ACETAMINOPHEN 5-325MG TAB PO PRN (01:04)
[2020-11-30] MEDS ORDERED: ACETAMINOPHEN 325 MG TAB PO PRN (01:04)
[2020-11-30] MEDS ORDERED: ONDANSETRON 4 MG/2 ML INJ IV PRN (01:04)
[2020-11-30] MEDS: PANTOPRAZOLE 20 MG TAB PO SCH ×3 (01:44→21:45)
[2020-11-30] MEDS: carvediloL 25 MG TAB PO SCH ×3 (01:44→17:11)
--- NOTE | 2020-11-30 06:59 | History and Physical Report ---
History of Present Illness Date of examination: 11/29/20 Date of admission: 11/29/20 19:20 Chief complaint: Chest pain since a.m. History of present illness: 70-year-old -[place] male with history of type 2 diabetes, hypertension, coronary artery disease and hyperlipidemia and gastroesophageal reflux disease comes in for chest pain which is retrosternal since a.m. Patient was seen here last week and was admitted for chest pain work-up and discharged after negative stress test. Patient stated that her symptoms are recurrent. And is being admitted again. No diaphoresis. No shortness of breath. Heart Score - HEART Score History: Moderately suspicious EKG: Non-specific Age: > 65 Risk factors: > 3 risk factors or hx of atherosclerotic disease Troponin: < normal limit HEART Score: 6 - Past Medical History Hx Hypertension: Yes Hx CVA: Yes Hx Heart Attack/AMI: Yes Hx Congestive Heart Failure: Yes Hx Diabetes: Yes Hx Seizures: Yes Hx Psychiatric Treatment: Yes (IP and OP tx, [place], [facility], [place]/ ANXIETY / DEPRESSION/schizophrenia Additional medical history: Cardiomyopathy. CAD with 50% LAD lesion. pacemaker - Surgical History Hx Coronary Stent: Yes Hx Open Heart Surgery: Yes Hx Pacemaker: Yes Hx Internal Defibrillator: Yes (pacemaker) Hx Appendectomy: Yes Additional Surgical History: R foot surgery /OPEN HEART - Social History Smoking Status: Never Smoker Substance Use Type: Alcohol -Review of Systems ROS: Stated complaint: CHEST PAIN Other details as noted in HPI Comment: All other systems reviewed and negative Constitutional: denies: chills, fever Respiratory: denies: cough, shortness of breath, SOB with exertion Cardiovascular: chest pain. denies: palpitations, dyspnea on exertion Gastrointestinal: denies: abdominal pain, nausea, vomiting, diarrhea Genitourinary: denies: urgency Musculoskeletal: denies: back pain Neurological: denies: headache, weakness, numbness, paresthesias Medications and Allergies Allergies Allergy/AdvReac Type Severity Reaction Status Date / Time No Known Allergies Allergy Verified 04/17/16 15:54 Home Medications Medication Instructions Recorded Confirmed Last Taken Type Sertraline [Zoloft] 100 mg PO QDAY #30 tablet 12/10/14 11/23/20 11/21/20 21:00 Rx glipiZIDE [Glucotrol] 5 mg PO BID #60 tablet 12/10/14 11/23/2021 09:00 Rx Aspirin [Aspirin BABY CHEW TAB] 81 mg PO QDAY #30 tab.chew 12/13/14 11/23/20 11/22/20 09:00 Rx Benztropine [Cogentin] 1 mg PO BID #60 tablet 12/13/14 11/23/20 11/21/20 21:00 Rx Nitroglycerin [Nitrostat] 0.4 mg SL Q5M PRN #30 tab 12/13/14 11/23/20 11/22/20 12:00 Rx Rosuvastatin (Nf) [Crestor] 10 mg PO QHS #30 tablet 12/13/14 11/23/20 11/22/20 21:00 Rx carvediloL [Coreg] 25 mg PO BID #60 tablet 12/13/14 11/23/20 11/22/20 09:00 Rx Mirtazapine 15 mg PO HS 04/08/16 11/23/20 11/21/20 21:00 History Zolpidem [Ambien] 10 mg PO QHS PRN 04/08/16 11/23/20 11/21/20 21:00 History diphenhydrAMINE [Benadryl CAP] 50 mg PO HS 04/08/16 11/23/20 11/22/20 21:00 History risperiDONE 2 mg PO QDAY 04/08/16 11/23/20 11/22/20 09:00 History Pantoprazole [Protonix TAB] 20 mg PO BID #60 tablet. 04/13/16 11/23/20 11/22/20 09:00 Rx Potassium Chloride [Klor-Con M20] 20 meq PO DAILY #15 tab.er.prt 12/28/17 11/23/20 11/21/20 21:00 Rx Sulfamethoxazole/Trimethoprim 1 each PO BID 5 Days #10 tablet 10/22/20 11/23/20 11/21/20 21:00 Rx [Bactrim DS TAB] Active Meds: Active Medications Acetaminophen (Acetaminophen 325 Mg Tab) 650 mg PO Q4H PRN PRN Reason: Pain MILD(1-3)/Fever >100.5/AGOSTO Aspirin (Aspirin 81 Mg Tab Chew) 81 mg PO QDAY [facility] Atorvastatin Calcium (Atorvastatin 20 Mg Tab) 20 mg PO QHS [facility] Benztropine Mesylate (Benztropine 1 Mg Tab) 1 mg PO BID [facility] Carvedilol (Carvedilol 25 Mg Tab) 25 mg PO BID@0800,1700 [facility] Last Admin: 11/30/20 01:44 Dose: 25 mg Documented by: Diphenhydramine HCl (Diphenhydramine 25 Mg Cap) 50 mg PO HS [facility] Glipizide (Glipizide 5 Mg Tab) 5 mg PO BIDDIAB [facility] Mirtazapine (Mirtazapine 15 Mg Tab) 15 mg PO HS [facility] Morphine Sulfate (Morphine 2 Mg/1 Ml Inj) 2 mg IV Q4H PRN PRN Reason: Pain, Moderate (4-6) Last Admin: 11/30/20 01:45 Dose: 2 mg Documented by: Nitroglycerin (Nitroglycerin 0.4 Mg Tab Subl) 0.4 mg SL Q5M PRN PRN Reason: Chest Pain Ondansetron HCl (Ondansetron 4 Mg/2 Ml Inj) 4 mg IV Q8H PRN PRN Reason: Nausea And Vomiting Oxycodone/Acetaminophen (Oxycodone /Acetaminophen 5-325mg Tab) 1 tab PO Q6H PRN PRN Reason: Pain, Moderate (4-6) Pantoprazole Sodium (Pantoprazole 20 Mg Tab) 20 mg PO BID [facility] Last Admin: 11/30/20 01:44 Dose: 20 mg Documented by: Potassium Chloride (Potassium Chloride Er 20 Meq Tab) 20 meq PO DAILY [facility] Risperidone (Risperidone 1 Mg Tab) 2 mg PO QDAY [facility] Sertraline HCl (Sertraline 100 Mg Tab) 100 mg PO QDAY [facility] Sodium Chloride (Sodium Chloride 0.9% 10 Ml Flush Syringe) 10 ml IV BID [facility] Sodium Chloride (Sodium Chloride 0.9% 10 Ml Flush Syringe) 10 ml IV PRN PRN PRN Reason: LINE FLUSH Zolpidem Tartrate (Zolpidem 5 Mg Tab) 10 mg PO QHS PRN PRN Reason: Sleep Exam - Constitutional Vitals: Temp Pulse Resp BP Pulse Ox 98.4 F 88 24 114/66 92 11/30/20 04:30 11/30/20 04:30 11/30/20 04:30 11/30/20 04:30 11/30/20 04:30 General appearance: Present: no acute distress, well-nourished - EENT Eyes: Present: PERRL ENT: hearing intact, clear oral mucosa - Neck Neck: Present: supple, normal ROM - Respiratory Respiratory effort: normal Respiratory: bilateral: CTA - Cardiovascular Rhythm: regular Heart Sounds: Present: S1 & S2. Absent: rub, click - Extremities Extremities: pulses symmetrical, No edema Peripheral Pulses: within normal limits - Abdominal General gastrointestinal: Present: soft, non-tender, non-distended, normal bowel sounds Male genitourinary: Present: normal - Integumentary Integumentary: Present: clear, warm, dry - Musculoskeletal Musculoskeletal: gait normal, strength equal bilaterally - Psychiatric Psychiatric: appropriate mood/affect, intact judgment & insight - Neurologic Neurologic: CNII-XII intact, moves all extremities HEART Score - HEART Score EKG: Non-specific Age: > 65 Risk factors: > 3 risk factors or hx of atherosclerotic disease Troponin: Troponin T < 0.010 ng/mL (0.00-0.029) 11/30/20 01:34 Troponin: < normal limit Results - Labs CBC & Chem 7: 11/29/20 17:34 11/29/20 17:34 Labs: Laboratory Last Values WBC 6.0 K/mm3 (4.5-11.0) 11/29/20 17:34 RBC 4.74 M/mm3 (3.65-5.03) 11/29/20 17:34 Hgb 13.2 gm/dl (11.8-15.2) 11/29/20 17:34 Hct 40.4 % (35.5-45.6) 11/29/20 17:34 MCV 85 fl (84-94) 11/29/20 17:34 MCH 28 pg (28-32) 11/29/20 17:34 MCHC 33 % (32-34) 11/29/20 17:34 RDW 14.3 % (13.2-15.2) 11/29/20 17:34 Plt Count 181 K/mm3 (140-440) 11/29/20 17:34 Lymph % (Auto) 15.3 % (13.4-35.0) 11/29/20 17:34 [place] % (Auto) 6.2 % (0.0-7.3) 11/29/20 17:34 Eos % (Auto) 0.7 % (0.0-4.3) 11/29/20 17:34 Baso % (Auto) 0.5 % (0.0-1.8) 11/29/20 17:34 Lymph # (Auto) 0.9 K/mm3 (1.2-5.4) L 11/29/20 17:34 [place] # (Auto) 0.4 K/mm3 (0.0-0.8) 11/29/20 17:34 Eos # (Auto) 0.0 K/mm3 (0.0-0.4) 11/29/20 17:34 Baso # (Auto) 0.0 K/mm3 (0.0-0.1) 11/29/20 17:34 Seg Neutrophils % 77.3 % (40.0-70.0) H 11/29/20 17:34 Seg Neutrophils # 4.6 K/mm3 (1.8-7.7) 11/29/20 17:34 PT 13.7 Sec. (12.2-14.9) 11/29/20 17:40 INR 1.06 (0.87-1.13) 11/29/20 17:40 APTT 27.3 Sec. (24.2-36.6) 11/29/20 17:40 Sodium 139 mmol/L (137-145) 11/29/20 17:34 Potassium 3.9 mmol/L (3.6-5.0) 11/29/20 17:34 Chloride 103.6 mmol/L (98-107) 11/29/20 17:34 Carbon Dioxide 26 mmol/L (22-30) 11/29/20 17:34 Anion Gap 13 mmol/L 11/29/20 17:34 BUN 12 mg/dL (9-20) 11/29/20 17:34 Creatinine 0.9 mg/dL (0.8-1.3) 11/29/20 17:34 Estimated GFR > 60 ml/min 11/29/20 17:34 BUN/Creatinine Ratio 13 % 11/29/20 17:34 Glucose 183 mg/dL (75-100) H 11/29/20 17:34 Calcium 8.6 mg/dL (8.4-10.2) 11/29/20 17:34 Total Bilirubin 0.40 mg/dL (0.1-1.2) 11/29/20 17:34 AST 22 units/L (5-40) 11/29/20 17:34 ALT 29 units/L (7-56) 11/29/20 17:34 Alkaline Phosphatase 94 units/L (35-129) 11/29/20 17:34 Troponin T < 0.010 ng/mL (0.00-0.029) 11/30/20 01:34 NT-Pro-B Natriuret Pep 764.1 pg/mL (0-900) 11/29/20 17:40 Total Protein 6.5 g/dL (6.3-8.2) 11/29/20 17:34 Albumin 4.0 g/dL (3.9-5) 11/29/20 17:34 Albumin/Globulin Ratio 1.6 % 11/29/20 17:34 - Imaging and Cardiology EKG: report reviewed (Normal sinus rhythm no acute ST-T wave changes) Chest x-ray: report reviewed (No acute findings) Philip/IV: Voiding Method Toilet Assessment and Plan Advance Directives: Yes (Full code) VTE prophylaxis?: Chemical Plan of care discussed with patient/family: Yes - Patient Problems (1) Acute coronary syndrome Current Visit: Yes Status: Acute Plan to address problem: Serial troponins May need cardiac cath Will defer to cardiology Patient had a Lexiscan thallium stress test that showed a dilated ischemic cardi omyopathy and a fixed inferior defect consistent with a prior inferior myocardial infarction. There was no significant reversible ischemia demonstrated. Cardiology consult for optimization of medications Lexiscan canceled (2) Coronary artery disease Current Visit: Yes Status: Chronic Qualifiers: Coronary Disease-Associated Artery/Lesion type: [place] artery [place] vs. 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
[2020-11-30] MEDS: SERTRALINE 100 MG TAB PO SCH (09:21)
[2020-11-30] MEDS: risperiDONE 1 MG TAB PO SCH (09:21)
[2020-11-30] MEDS: glipiZIDE 5 MG TAB PO SCH ×2 (09:22→17:11)
[2020-11-30] MEDS: ASPIRIN 81 MG TAB CHEW PO SCH (09:22)
[2020-11-30] MEDS: POTASSIUM CHLORIDE ER 20 MEQ TAB PO SCH (09:22)
[2020-11-30] MEDS: BENZTROPINE 1 MG TAB PO SCH ×2 (09:22→21:45)
[2020-11-30] MEDS ORDERED: FAMOTIDINE 20 MG TAB PO SCH (10:00)
--- NOTE | 2020-11-30 11:15 | Consultation ---
History of Present Illness Consult date: 11/30/20 Consult reason: chest pain History of present illness: This is a 70-year old male with a cardiac history of coronary artery disease. In 2016, he underwent four-vessel coronary artery bypass at [facility]. There was FRITZ to LAD, SVG to posterior descending artery, sequential SVG side to side to the diagonal, end to side to the mid obtuse marginal. He also has ischemic cardiomyopathy and has an internal cardiac defibrillator ([employer]). Co-morbidities includes hypertension, depression, diabetes, and seizure disorder. A week ago the patient was hospitalized with syncope. He had a Lexiscan thallium stress test that showed a fixed inferior defect consistent with a prior inferior myocardial infarction. There was no significant reversible ischemia demonstrated. An ICD device interrogation showed no evidence of ventricular arrhythmias. Normal functioning device. 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 He returns to this hospital, admitted with chest pain. Chest pain is poorly characterized and non-exertional. Patient denies palpitations. No report of syncope. It would be noted that valsartan, imdur and lisnopril were discontinued on discharge 4 days ago, for suspected hypotension as the etiology of syncopal episode. Chest x-ray is negative and his ECG is AV paced rhythm. Past History Past Medical History: CAD, diabetes, heart failure, hypertension Past Surgical History: CABG (4v) Medications and Allergies Allergies Allergy/AdvReac Type Severity Reaction Status Date / Time No Known Allergies Allergy Verified 04/17/16 15:54 Home Medications Medication Instructions Recorded Confirmed Last Taken Type Sertraline [Zoloft] 100 mg PO QDAY #30 tablet 12/10/14 11/23/20 11/21/20 21:00 Rx glipiZIDE [Glucotrol] 5 mg PO BID #60 tablet 12/10/14 11/23/20 11/22/20 09:00 Rx Aspirin [Aspirin BABY CHEW TAB] 81 mg PO QDAY #30 tab.chew 12/13/14 11/23/20 11/22/20 09:00 Rx Benztropine [Cogentin] 1 mg PO BID #60 tablet 12/13/14 11/23/20 11/21/20 21:00 Rx Nitroglycerin [Nitrostat] 0.4 mg SL Q5M PRN #30 tab 05/18/15 04/28/21 04/27/21 12:00 Rx Rosuvastatin (Nf) [Crestor] 10 mg PO QHS #30 tablet 12/13/14 11/23/20 11/22/20 21:00 Rx carvediloL [Coreg] 25 mg PO BID #60 tablet 12/13/14 11/23/20 11/22/20 09:00 Rx Mirtazapine 15 mg PO HS 04/08/16 11/23/20 11/21/20 21:00 History Zolpidem [Ambien] 10 mg PO QHS PRN 04/08/16 11/23/20 11/21/20 21:00 History diphenhydrAMINE [Benadryl CAP] 50 mg PO HS 04/08/16 11/23/20 11/22/20 21:00 History risperiDONE 2 mg PO QDAY 04/08/16 11/23/20 11/22/20 09:00 History Pantoprazole [Protonix TAB] 20 mg PO BID #60 tablet. 04/13/16 11/23/20 1 09:00 Rx Potassium Chloride [Klor-Con M20] 20 meq PO DAILY #15 tab.er.prt 12/28/17 11/23/20 11/21/20 21:00 Rx Sulfamethoxazole/Trimethoprim 1 each PO BID 5 Days #10 tablet 10/22/20 11/23/20 11/21/20 21:00 Rx [Bactrim DS TAB] Active Meds: Active Medications Acetaminophen (Acetaminophen 325 Mg Tab) 650 mg PO Q4H PRN PRN Reason: Pain MILD(1-3)/Fever >100.5/AGOSTO Aspirin (Aspirin 81 Mg Tab Chew) 81 mg PO QDAY [facility] Last Admin: 11/30/20 09:22 Dose: 81 mg Documented by: Atorvastatin Calcium (Atorvastatin 20 Mg Tab) 20 mg PO QHS [facility] Benztropine Mesylate (Benztropine 1 Mg Tab) 1 mg PO BID [facility] Last Admin: 11/30/20 09:22 Dose: 1 mg Documented by: Carvedilol (Carvedilol 25 Mg Tab) 25 mg PO BID@0800,1700 [facility] Last Admin: 11/30/20 09:22 Dose: 25 mg Documented by: Diphenhydramine HCl (Diphenhydramine 25 Mg Cap) 50 mg PO HS [facility] Glipizide (Glipizide 5 Mg Tab) 5 mg PO BIDDIAB [facility] Last Admin: 11/30/20 09:22 Dose: 5 mg Documented by: Mirtazapine (Mirtazapine 15 Mg Tab) 15 mg PO [facility] Morphine Sulfate (Morphine 2 Mg/1 Ml Inj) 2 mg IV Q4H PRN PRN Reason: Pain, Moderate (4-6) Last Admin: 11/30/20 01:45 Dose: 2 mg Documented by: Nitroglycerin (Nitroglycerin 0.4 Mg Tab Subl) 0.4 mg SL Q5M PRN PRN Reason: Chest Pain Ondansetron HCl (Ondansetron 4 Mg/2 Ml Inj) 4 mg IV Q8H PRN PRN Reason: Nausea And Vomiting Oxycodone/Acetaminophen (Oxycodone /Acetaminophen 5-325mg Tab) 1 tab PO Q6H PRN PRN Reason: Pain, Moderate (4-6) Pantoprazole Sodium (Pantoprazole 20 Mg Tab) 20 mg PO BID [facility] Last Admin: 11/30/20 09:21 Dose: 20 mg Documented by: Potassium Chloride (Potassium Chloride Er 20 Meq Tab) 20 meq PO DAILY [facility] Last Admin: 11/30/20 09:22 Dose: 20 meq Documented by: Risperidone (Risperidone 1 Mg Tab) 2 mg PO QDAY [facility] Last Admin: 11/30/20 09:21 Dose: 2 mg Documented by: Sertraline HCl (Sertraline 100 Mg Tab) 100 mg PO QDAY [facility] Last Admin: 11/30/20 09:21 Dose: 100 mg Documented by: Sodium Chloride (Sodium Chloride 0.9% 10 Ml Flush Syringe) 10 ml IV BID [facility] Last Admin: 11/30/20 09:23 Dose: 10 ml Documented by: Sodium Chloride (Sodium Chloride 0.9% 10 Ml Flush Syringe) 10 ml IV PRN PRN PRN Reason: LINE FLUSH Zolpidem Tartrate (Zolpidem 5 Mg Tab) 10 mg PO QHS PRN PRN Reason: Sleep Review of Systems Cardiovascular: chest pain, no palpitations, no rapid/irregular heart beat, no syncope, no shortness of breath Physical Examination Vital Signs Temp Pulse Resp BP Pulse Ox 98.5 F 73 20 113/85 100 11/29/20 17:21 11/29/20 17:21 11/29/20 17:21 11/29/20 17:21 11/29/20 17:21 General appearance: no acute distress HEENT: Positive: PERRL Neck: Positive: trachea midline Cardiac: Positive: Other (AV paced) Lungs: Positive: Decreased Breath Sounds Neuro: Positive: Grossly Intact Extremities: Absent: edema Results 11/29/20 17:34 11/29/20 17:34 Cardiac Enzymes 11/29/20 Range/Units 17:34 AST 22 (5-40) units/L Coagulation 11/29/20 Range/Units 17:40 PT 13.7 (12.2-14.9) Sec. INR 1.06 (0.87-1.13) APTT 27.3 (24.2-36.6) Sec. CBC 11/29/20 Range/Units 17:34 WBC 6.0 (4.5-11.0) K/mm3 RBC 4.74 (3.65-5.03) M/mm3 Hgb 13.2 (11.8-15.2) gm/dl Hct 40.4 (35.5-45.6) % Plt Count 181 (140-440) K/mm3 Lymph # (Auto) 0.9 L (1.2-5.4) K/mm3 [place] # (Auto) 0.4 (0.0-0.8) K/mm3 Eos # (Auto) 0.0 (0.0-0.4) K/mm3 Baso # (Auto) 0.0 (0.0-0.1) K/mm3 Comprehensive Metabolic Panel 11/29/20 Range/Units 17:34 Sodium 139 (137-145) mmol/L Potassium 3.9 (3.6-5.0) mmol/L Chloride 103.6 (98-107) mmol/L Carbon Dioxide 26 (22-30) mmol/L BUN 12 (9-20) mg/dL Creatinine 0.9 (0.8-1.3) mg/dL Glucose 183 H (75-100) mg/dL Calcium 8.6 (8.4-10.2) mg/dL AST 22 (5-40) units/L ALT 29 (7-56) units/L Alkaline Phosphatase 94 (35-129) units/L Total Protein 6.5 (6.3-8.2) g/dL Albumin 4.0 (3.9-5) g/dL Assessment and Plan - Patient Problems (1) Chest pain Current Visit: No Status: Acute
--- NOTE | 2020-11-30 11:28 | Progress Note ---
Assessment and Plan Assessment and plan: (1) Acute coronary syndrome Current Visit: Yes Status: Acute Plan to address problem: Serial troponins May need cardiac cath Will defer to cardiology Patient had a Lexiscan thallium stress test that showed a dilated ischemic cardiomyopathy and a fixed inferior defect consistent with a prior inferior myocardial infarction. There was no significant reversible ischemia demonstrated. Cardiology consult for optimization of medications Lexiscan canceled (2) Coronary artery disease Current Visit: Yes Status: Chronic Qualifiers: Coronary Disease-Associated Artery/Lesion type: [place] artery [place] vs. transplanted heart: [place] heart Plan to address problem: Continue isosorbide mono nitrate and aspirin and nitroglycerin as needed (3) Type 2 diabetes mellitus Current Visit: Yes Status: Resolved Qualifiers: Diabetes mellitus residential insulin use: unspecified residential insulin use status Plan to address problem: Continue home hypoglycemics and coverage and check hemoglobin A1c (4) Hyperlipidemia Current Visit: Yes Status: Chronic Qualifiers: Hyperlipidemia type: mixed hyperlipidemia Qualified Code(s): E78.2 - Mixed hyperlipidemia Plan to address problem: Continue statins (5) DVT prophylaxis Current Visit: Yes Status: Acute Plan to address problem: On heparin and GI prophylaxis History Interval history: 70-year-old -[place] male with history of type 2 diabetes, hypertension, coronary artery disease and hyperlipidemia and gastroesophageal reflux disease comes in for chest pain which is retrosternal since a.m. Patient was seen here last week and was admitted for chest pain work-up and discharged after negative stress test. Patient stated that her symptoms are recurrent. And is being admitted again. No diaphoresis. No shortness of breath. Hospital course 11/30. Further evaluation by cardiology team. Vital signs Hospitalist Physical - Physical exam Narrative exam: VITAL SIGNS: Reviewed. GENERAL: Awake HEAD: No signs of head trauma. EYES: Pupils are equal. Extraocular motions intact. MOUTH: Oropharynx is normal. NECK: No adenopathy, no JVD. CHEST: Chest with diminished breath sounds bilaterally. No wheezes, rales, or rhonchi. CARDIAC: normal S1 and S2, without murmurs, gallops, or rubs. ABDOMEN: Soft, non tender and non distended. No rebound or guarding, and no masses palpated. Bowel Sounds normal. MUSCULOSKELETAL: No edema NEUROLOGIC EXAM: Alert and oriented x3. No focal neurologic deficits SKIN: No obvious lesions - Constitutional Vitals: Temp Pulse Resp BP Pulse Ox 98.4 F 70 24 153/87 98 11/30/20 04:30 11/30/20 10:00 11/30/20 04:30 11/30/20 09:22 11/30/20 10:00 HEART Score - HEART Score EKG: Non-specific Age: > 65 Risk factors: > 3 risk factors or hx of atherosclerotic disease Troponin: Troponin T < 0.010 ng/mL (0.00-0.029) 11/30/20 01:34 Troponin: < normal limit Results - Labs CBC & Chem 7: 11/29/20 17:34 11/29/20 17:34 Labs: Laboratory Last Values WBC 6.0 K/mm3 (4.5-11.0) 11/29/20 17:34 RBC 4.74 M/mm3 (3.65-5.03) 11/29/20 17:34 Hgb 13.2 gm/dl (11.8-15.2) 11/29/20 17:34 Hct 40.4 % (35.5-45.6) 11/29/20 17:34 MCV 85 fl (84-94) 11/29/20 17:34 MCH 28 pg (28-32) 11/29/20 17:34 MCHC 33 % (32-34) 11/29/20 17:34 RDW 14.3 % (13.2-15.2) 11/29/20 17:34 Plt Count 181 K/mm3 (140-440) 11/29/20 17:34 Lymph % (Auto) 15.3 % (13.4-35.0) 11/29/20 17:34 [place] % (Auto) 6.2 % (0.0-7.3) 11/29/20 17:34 Eos % (Auto) 0.7 % (0.0-4.3) 11/29/20 17:34 Baso % (Auto) 0.5 % (0.0-1.8) 11/29/20 17:34 Lymph # (Auto) 0.9 K/mm3 (1.2-5.4) L 11/29/20 17:34 [place] # (Auto) 0.4 K/mm3 (0.0-0.8) 11/29/20 17:34 Eos # (Auto) 0.0 K/mm3 (0.0-0.4) 11/29/20 17:34 Baso # (Auto) 0.0 K/mm3 (0.0-0.1) 11/29/20 17:34 Seg Neutrophils % 77.3 % (40.0-70.0) H 11/29/20 17:34 Seg Neutrophils # 4.6 K/mm3 (1.8-7.7) 11/29/20 17:34 PT 13.7 Sec. (12.2-14.9) 11/29/20 17:40 INR 1.06 (0.87-1.13) 11/29/20 17:40 APTT 27.3 Sec. (24.2-36.6) 11/29/20 17:40 Sodium 139 mmol/L (137-145) 11/29/20 17:34 Potassium 3.9 mmol/L (3.6-5.0) 11/29/20 17:34 Chloride 103.6 mmol/L (98-107) 11/29/20 17:34 Carbon Dioxide 26 mmol/L (22-30) 11/29/20 17:34 Anion Gap 13 mmol/L 11/29/20 17:34 BUN 12 mg/dL (9-20) 11/29/20 17:34 Creatinine 0.9 mg/dL (0.8-1.3) 11/29/20 17:34 Estimated GFR > 60 ml/min 11/29/20 17:34 BUN/Creatinine Ratio 13 % 11/29/20 17:34 Glucose 183 mg/dL (75-100) H 11/29/20 17:34 POC Glucose 116 mg/dL (70-105) H 11/30/20 08:40 Calcium 8.6 mg/dL (8.4-10.2) 11/29/20 17:34 Total Bilirubin 0.40 mg/dL (0.1-1.2) 11/29/20 17:34 AST 22 units/L (5-40) 11/29/20 17:34 ALT 29 units/L (7-56) 11/29/20 17:34 Alkaline Phosphatase 94 units/L (35-129) 11/29/20 17:34 Troponin T < 0.010 ng/mL (0.00-0.029) 11/30/20 01:34 NT-Pro-B Natriuret Pep 764.1 pg/mL (0-900) 11/29/20 17:40 Total Protein 6.5 g/dL (6.3-8.2) 11/29/20 17:34 Albumin 4.0 g/dL (3.9-5) 11/29/20 17:34 Albumin/Globulin Ratio 1.6 % 11/29/20 17:34 Philip/IV: Voiding Method Toilet Active Medications - Current Medications Current Medications: Generic Name Dose Route Start Last Admin Trade Name Freq PRN Reason Stop Dose Admin Acetaminophen 650 mg 11/30/20 01:04 Acetaminophen 325 Mg Tab PO Q4H PRN Pain MILD(1-3)/Fever >100.5/AGOSTO Aspirin 81 mg 11/30/20 10:00 11/30/20 09:22 Aspirin 81 Mg Tab Chew PO 81 mg QDAY AMBIKA Administration Atorvastatin Calcium 20 mg 11/30/20 22:00 Atorvastatin 20 Mg Tab PO QHS AMBIKA Benztropine Mesylate 1 mg 11/30/20 10:00 11/30/20 09:22 Benztropine 1 Mg Tab PO 1 mg BID AMBIKA Administration Carvedilol 25 mg 11/30/20 02:00 11/30/20 09:22 Carvedilol 25 Mg Tab PO 25 mg BID@0800,1700 AMBIKA Administration Diphenhydramine HCl 50 mg 11/30/20 22:00 Diphenhydramine 25 Mg Cap PO HS [facility] Glipizide 5 mg 11/30/20 08:00 11/30/20 09:22 Glipizide 5 Mg Tab PO 5 mg BIDDIAB AMBIKA Administration Mirtazapine 15 mg 11/30/20 22:00 Mirtazapine 15 Mg Tab PO HS [facility] Morphine Sulfate 2 mg 11/30/20 01:04 11/30/20 01:45 Morphine 2 Mg/1 Ml Inj IV 2 mg Q4H PRN Administration Pain, Moderate (4-6) Nitroglycerin 0.4 mg 11/30/20 01:01 Nitroglycerin 0.4 Mg Tab Subl SL Q5M PRN Chest Pain Ondansetron HCl 4 mg 11/30/20 01:04 Ondansetron 4 Mg/2 Ml Inj IV Q8H PRN Nausea And Vomiting Oxycodone/Acetaminophen 1 tab 11/30/20 01:04 Oxycodone /Acetaminophen 5-325mg Tab PO Q6H PRN Pain, Moderate (4-6) Pantoprazole Sodium 20 mg 11/30/20 02:00 11/30/20 09:21 Pantoprazole 20 Mg Tab PO 20 mg BID AMBIKA Administration Potassium Chloride 20 meq 11/30/20 10:00 11/30/20 09:22 Potassium Chloride Er 20 Meq Tab PO 20 meq DAILY AMBIKA Administration Risperidone 2 mg 11/30/20 10:00 11/30/20 09:21 Risperidone 1 Mg Tab PO 2 mg QDAY AMBIKA Administration Sertraline HCl 100 mg 11/30/20 10:00 11/30/20 09:21 Sertraline 100 Mg Tab PO 100 mg QDAY AMBIKA Administration Sodium Chloride 10 ml 11/30/20 10:00 11/30/20 09:23 Sodium Chloride 0.9% 10 Ml Flush Syringe IV 10 ml BID AMBIKA Administration Sodium Chloride 10 ml 11/30/20 01:04 Sodium Chloride 0.9% 10 Ml Flush Syringe IV PRN PRN LINE FLUSH Zolpidem Tartrate 10 mg 11/30/20 01:01 Zolpidem 5 Mg Tab PO QHS PRN Sleep
[2020-11-30] MEDS ORDERED: MIRTAZAPINE 15 MG TAB PO SCH (22:00)
[2020-11-30] MEDS ORDERED: diphenhydrAMINE 25 MG CAP PO SCH (22:00)
[2020-12-01 08:19] LABS: Basophils % (Auto) 0.3 % (0.0-1.8); Eosinophils # (Auto) 0.1 K/mm3 (0.0-0.4); Eosinophils % (Auto) 1.7 % (0.0-4.3); Hematocrit 40.9 % (35.5-45.6); Hemoglobin 13.6 gm/dl (11.8-15.2); Lymphocytes # (Auto) 1.6 K/mm3 (1.2-5.4); Mean Corpuscular HGB Conc 33 % (32-34); Mean Corpuscular Volume 85 fl (84-94); Monocytes # (Auto) 0.3 K/mm3 (0.0-0.8); Platelet Count 195 K/mm3 (140-440); Red Blood Count 4.83 M/mm3 (3.65-5.03); Red Cell Distribution Width 14.5 % (13.2-15.2)
[2020-12-01 08:47] LABS: Alanine Aminotransferase 25 units/L (7-56); Albumin 4.1 g/dL (3.9-5); BUN/Creatinine Ratio 13; Blood Urea Nitrogen 12 mg/dL (9-20); Calcium 9.1 mg/dL (8.4-10.2); Hemolysis Index 32
[2020-12-01] MEDS: glipiZIDE 5 MG TAB PO SCH ×3 (09:41→17:56)
--- NOTE | 2020-12-01 09:45 | Progress Note ---
Assessment and Plan Assessment and plan: (1) Chest pain Current Visit: Yes Status: Acute Plan to address problem: Has stress test recently that was negative Cardiology on board. (2) Coronary artery disease Current Visit: Yes Status: Chronic Qualifiers: Coronary Disease-Associated Artery/Lesion type: [place] artery [place] vs. transplanted heart: [place] heart Plan to address problem: Continue isosorbide mono nitrate and aspirin and nitroglycerin as needed (3) Type 2 diabetes mellitus Current Visit: Yes Status: Resolved Qualifiers: Diabetes mellitus skilled nursing insulin use: unspecified skilled nursing insulin use status Plan to address problem: Continue home hypoglycemics and coverage and check hemoglobin A1c (4) Hyperlipidemia Current Visit: Yes Status: Chronic Qualifiers: Hyperlipidemia type: mixed hyperlipidemia Qualified Code(s): E78.2 - Mixed hyperlipidemia Plan to address problem: Continue statins (5) DVT prophylaxis Current Visit: Yes Status: Acute Plan to address problem: On heparin and GI prophylaxis History Interval history: 70-year-old -Ind[place]ian male with history of type 2 diabetes, hypertension, coronary artery disease and hyperlipidemia and gastroesophageal reflux disease comes in for chest pain which is retrosternal. Patient was seen here last week and was admitted for chest pain work-up and discharged after negative stress test. Patient stated that his symptoms are recurrent. He denies any diaphoresis. No shortness of breath. Hospital course 11/30. Further evaluation by cardiology team. Vital signs stable 12/01. He denies any chest pain. He was placed NPO this AM. Plan per cardiology. Hospitalist Physical - Physical exam Narrative exam: VITAL SIGNS: Reviewed. GENERAL: Awake HEAD: No signs of head trauma. EYES: Pupils are equal. Extraocular motions intact. MOUTH: Oropharynx is normal. NECK: No adenopathy, no JVD. CHEST: Chest with diminished breath sounds bilaterally. No wheezes, rales, or rhonchi. CARDIAC: normal S1 and S2, without murmurs, gallops, or rubs. ABDOMEN: Soft, non tender and non distended. No rebound or guarding, and no masses palpated. Bowel Sounds normal. MUSCULOSKELETAL: No edema NEUROLOGIC EXAM: Alert and oriented x3. No focal neurologic deficits SKIN: No obvious lesions - Constitutional Vitals: Temp Pulse Resp BP Pulse Ox 98.9 F 70 18 128/79 95 12/01/20 07:22 12/01/20 07:22 12/01/20 07:22 12/01/20 07:22 12/01/20 07:22 HEART Score - HEART Score EKG: Non-specific Age: > 65 Risk factors: > 3 risk factors or hx of atherosclerotic disease Troponin: Troponin T < 0.010 ng/mL (0.00-0.029) 11/30/20 14:36 Troponin: < normal limit Results - Labs CBC & Chem 7: 12/01/20 07:40 12/01/20 07:40 Labs: Laboratory Last Values WBC 4.6 K/mm3 (4.5-11.0) 12/01/20 07:40 RBC 4.83 M/mm3 (3.65-5.03) 12/01/20 07:40 Hgb 13.6 gm/dl (11.8-15.2) 12/01/20 07:40 Hct 40.9 % (35.5-45.6) 12/01/20 07:40 MCV 85 fl (84-94) 12/01/20 07:40 MCH 28 pg (28-32) 12/01/20 07:40 MCHC 33 % (32-34) 12/01/20 07:40 RDW 14.5 % (13.2-15.2) 12/01/20 07:40 Plt Count 195 K/mm3 (140-440) 12/01/20 07:40 Lymph % (Auto) 34.0 % (13.4-35.0) 12/01/20 07:40 [place] % (Auto) 7.0 % (0.0-7.3) 12/01/20 07:40 Eos % (Auto) 1.7 % (0.0-4.3) 12/01/20 07:40 Baso % (Auto) 0.3 % (0.0-1.8) 12/01/20 07:40 Lymph # (Auto) 1.6 K/mm3 (1.2-5.4) 12/01/20 07:40 [place] # (Auto) 0.3 K/mm3 (0.0-0.8) 12/01/20 07:40 Eos # (Auto) 0.1 K/mm3 (0.0-0.4) 12/01/20 07:40 Baso # (Auto) 0.0 K/mm3 (0.0-0.1) 12/01/20 07:40 Seg Neutrophils % 57.0 % (40.0-70.0) 12/01/20 07:40 Seg Neutrophils # 2.6 K/mm3 (1.8-7.7) 12/01/20 07:40 PT 13.7 Sec. (12.2-14.9) 11/29/20 17:40 INR 1.06 (0.87-1.13) 11/29/20 17:40 APTT 27.3 Sec. (24.2-36.6) 11/29/20 17:40 Sodium 141 mmol/L (137-145) 12/01/20 07:40 Potassium 4.0 mmol/L (3.6-5.0) 12/01/20 07:40 Chloride 100.2 mmol/L (98-107) 12/01/20 07:40 Carbon Dioxide 26 mmol/L (22-30) 12/01/20 07:40 Anion Gap 19 mmol/L 12/01/20 07:40 BUN 12 mg/dL (9-20) 12/01/20 07:40 Creatinine 0.9 mg/dL (0.8-1.3) 12/01/20 07:40 Estimated GFR > 60 ml/min 12/01/20 07:40 BUN/Creatinine Ratio 13 % 12/01/20 07:40 Glucose 81 mg/dL (75-100) 12/01/20 07:40 POC Glucose 96 mg/dL (70-105) 11/30/20 20:57 Calcium 9.1 mg/dL (8.4-10.2) 12/01/20 07:40 Total Bilirubin 0.40 mg/dL (0.1-1.2) 12/01/20 07:40 AST 23 units/L (5-40) 12/01/20 07:40 ALT 25 units/L (7-56) 12/01/20 07:40 Alkaline Phosphatase 93 units/L (35-129) 12/01/20 07:40 Troponin T < 0.010 ng/mL (0.00-0.029) 11/30/20 14:36 NT-Pro-B Natriuret Pep 764.1 pg/mL (0-900) 11/29/20 17:40 Total Protein 6.9 g/dL (6.3-8.2) 12/01/20 07:40 Albumin 4.1 g/dL (3.9-5) 12/01/20 07:40 Albumin/Globulin Ratio 1.5 % 12/01/20 07:40 Philip/IV: Voiding Method Toilet Active Medications - Current Medications Current Medications: Generic Name Dose Route Start Last Admin Trade Name Freq PRN Reason Stop Dose Admin Acetaminophen 650 mg 11/30/20 01:04 Acetaminophen 325 Mg Tab PO Q4H PRN Pain MILD(1-3)/Fever >100.5/AGOSTO Aspirin 81 mg 11/30/20 10:00 11/30/20 09:22 Aspirin 81 Mg Tab Chew PO 81 mg QDAY AMBIKA Administration Atorvastatin Calcium 20 mg 11/30/20 22:00 11/30/20 21:45 Atorvastatin 20 Mg Tab PO 20 mg QHS AMBIKA Administration Benztropine Mesylate 1 mg 11/30/20 10:00 11/30/20 21:45 Benztropine 1 Mg Tab PO 1 mg BID AMBIKA Administration Carvedilol 25 mg 11/30/20 02:00 11/30/20 17:11 Carvedilol 25 Mg Tab PO 25 mg BID@0800,1700 AMBIKA Administration Diphenhydramine HCl 50 mg 11/30/20 22:00 11/30/20 21:45 Diphenhydramine 25 Mg Cap PO 50 mg HS AMBIKA Administration Glipizide 5 mg 11/30/20 08:00 11/30/20 17:11 Glipizide 5 Mg Tab PO 5 mg BIDDIAB AMBIKA Administration Isosorbide Mononitrate 60 mg 12/01/20 10:00 Isosorbide Mononitrate Er 60 Mg Tab PO QDAY AMBIKA Mirtazapine 15 mg 11/30/20 22:00 11/30/20 21:45 Mirtazapine 15 Mg Tab PO 15 mg HS AMBIKA Administration Morphine Sulfate 2 mg 11/30/20 01:04 11/30/20 01:45 Morphine 2 Mg/1 Ml Inj IV 2 mg Q4H PRN Administration Pain, Moderate (4-6) Nitroglycerin 0.4 mg 11/30/20 01:01 Nitroglycerin 0.4 Mg Tab Subl SL Q5M PRN Chest Pain Ondansetron HCl 4 mg 11/30/20 01:04 Ondansetron 4 Mg/2 Ml Inj IV Q8H PRN Nausea And Vomiting Oxycodone/Acetaminophen 1 tab 11/30/20 01:04 Oxycodone /Acetaminophen 5-325mg Tab PO Q6H PRN Pain, Moderate (4-6) Pantoprazole Sodium 20 mg 11/30/20 02:00 11/30/20 21:45 Pantoprazole 20 Mg Tab PO 20 mg BID AMBIKA Administration Potassium Chloride 20 meq 11/30/20 10:00 11/30/20 09:22 Potassium Chloride Er 20 Meq Tab PO 20 meq DAILY AMBIKA Administration Risperidone 2 mg 11/30/20 10:00 11/30/20 09:21 Risperidone 1 Mg Tab PO 2 mg QDAY AMBIKA Administration Sertraline HCl 100 mg 11/30/20 10:00 11/30/20 09:21 Sertraline 100 Mg Tab PO 100 mg QDAY AMBIKA Administration Sodium Chloride 10 ml 11/30/20 10:00 11/30/20 21:46 Sodium Chloride 0.9% 10 Ml Flush Syringe IV 10 ml BID AMBIKA Administration Sodium Chloride 10 ml 11/30/20 01:04 Sodium Chloride 0.9% 10 Ml Flush Syringe IV PRN PRN LINE FLUSH Zolpidem Tartrate 10 mg 11/30/20 01:01 Zolpidem 5 Mg Tab PO QHS PRN Sleep
[2020-12-01] MEDS: ASPIRIN 81 MG TAB CHEW PO SCH (11:18)
[2020-12-01] MEDS: SERTRALINE 100 MG TAB PO SCH (11:18)
[2020-12-01] MEDS: PANTOPRAZOLE 20 MG TAB PO SCH (11:18)
[2020-12-01] MEDS: carvediloL 25 MG TAB PO SCH ×2 (11:18→17:58)
[2020-12-01] MEDS: BENZTROPINE 1 MG TAB PO SCH (11:19)
[2020-12-01] MEDS: risperiDONE 1 MG TAB PO SCH (11:19)
[2020-12-01] MEDS: POTASSIUM CHLORIDE ER 20 MEQ TAB PO SCH (11:19)
--- NOTE | 2020-12-01 12:35 | Discharge Summary ---
Providers - Providers Date of Admission: 11/29/20 19:20 Date of discharge: 12/01/20 Attending physician: ROSALINE MCCRACKEN 11/30/20 07:05 Consult to Physician [CONS] Routine Comment: Consulting Provider: JEANIE WERNER Physician Instructions: Reason For Exam: Acute coronary syndrome, cardiomyopathy Primary care physician: [employer] Hospitalization Condition: Stable Hospital course: 70-year-old -[place]ian male with history of type 2 diabetes, hypertension, coronary artery disease and hyperlipidemia and gastroesophageal reflux disease comes in for chest pain which is retrosternal. Patient was seen here last week and was admitted for chest pain work-up and discharged after negative stress test. Patient stated that his symptoms are recurrent. He denies any diaphoresis. No shortness of breath. Hospital course 11/30. Further evaluation by cardiology team. Vital signs stable 12/01. He denies any chest pain. Per cardiology, patient can be discharged home to follow-up with cardiology team next week. He will continue current home medications. Patient agrees with plan. Disposition: - TO HOME OR SELFCARE Final Discharge Diagnosis (Prints w/discharge instructions): Chest pain Core Measure Documentation - Palliative Care Palliative Care/ Comfort Measures: Not Applicable - Core Measures Any of the following diagnoses?: none Exam - Physical Exam Narrative exam: VITAL SIGNS: Reviewed. GENERAL: Awake HEAD: No signs of head trauma. EYES: Pupils are equal. Extraocular motions intact. MOUTH: Oropharynx is normal. NECK: No adenopathy, no JVD. CHEST: Chest with diminished breath sounds bilaterally. No wheezes, rales, or rhonchi. CARDIAC: normal S1 and S2, without murmurs, gallops, or rubs. ABDOMEN: Soft, non tender and non distended. No rebound or guarding, and no masses palpated. Bowel Sounds normal. MUSCULOSKELETAL: No edema NEUROLOGIC EXAM: Alert and oriented x3. No focal neurologic deficits SKIN: No obvious lesions - Constitutional Vitals: Temp Pulse Resp BP Pulse Ox 98.6 F 69 18 139/78 94 12/01/20 11:33 12/01/20 11:33 12/01/20 11:33 12/01/20 11:33 12/01/20 11:33 Plan Diet: low fat, low cholesterol, low salt Additional Instructions: Continue current home medications as ordered. Follow- up with cardiology in the office in a week Follow up with: PRIMARY MD CHIDI [Primary Care Provider] - 7 Days JEANIE WERNER MD [Staff Physician] - 7 Days Prescriptions: ISOSORBIDE MONOnitrate [Imdur ER] 60 mg PO QDAY #30 tablet
--- NOTE | 2020-12-01 13:05 | Progress Note ---
Assessment and Plan - Patient Problems (1) Chest pain Current Visit: No Status: Acute Plan to address problem: Chest pain is atypical. Patient has a history of coronary artery disease and previous coronary bypass. A recent thallium stress test done less than 2 weeks ago was negative. No further cardiac work-up is indicated, patient is stable for discharge continue guideline directed medical therapy, follow-up in our office in 5 to 7 days. He has also been directed to return immediately to the emergency room if any recurrent chest pain. Subjective Date of service: 12/01/20 Principal diagnosis: Chest pain Interval history: The patient's chest pain was atypical, nonexertional. Since his presentation, there has been no further chest pain. He feels well and wants to go home today. It will be recalled that a thallium stress test done just within the past 2 weeks was negative. On this presentation, serial troponin levels were negative. Objective Vital Signs Temp Pulse Pulse Resp BP Pulse Ox 12/01/20 11:33 98.6 F 69 18 139/78 94 12/01/20 10:00 70 18 12/01/20 07:22 98.9 F 70 18 128/79 95 12/01/20 03:33 98.4 F 70 18 131/79 98 11/30/20 23:25 98.6 F 72 18 151/92 98 11/30/20 23:00 72 11/30/20 22:00 70 18 99 11/30/20 19:20 97.5 F L 70 18 108/55 99 11/30/20 17:11 72 121/64 11/30/20 16:17 97.7 F 71 18 121/64 97 11/30/20 15:40 70 - Physical Examination General: No Apparent Distress HEENT: Positive: PERRL Neck: Positive: trachea midline Cardiac: Positive: Irregularly Regular Lungs: Positive: Decreased Breath Sounds Neuro: Positive: Grossly Intact Extremities: Absent: edema - Labs and Meds Cardiac Enzymes 12/01/20 Range/Units 07:40 AST 23 (5-40) units/L CBC 12/01/20 Range/Units 07:40 WBC 4.6 (4.5-11.0) K/mm3 RBC 4.83 (3.65-5.03) M/mm3 Hgb 13.6 (11.8-15.2) gm/dl Hct 40.9 (35.5-45.6) % Plt Count 195 (140-440) K/mm3 Lymph # (Auto) 1.6 (1.2-5.4) K/mm3 [place] # (Auto) 0.3 (0.0-0.8) K/mm3 Eos # (Auto) 0.1 (0.0-0.4) K/mm3 Baso # (Auto) 0.0 (0.0-0.1) K/mm3 Comprehensive Metabolic Panel 12/01/20 Range/Units 07:40 Sodium 141 (137-145) mmol/L Potassium 4.0 (3.6-5.0) mmol/L Chloride 100.2 (98-107) mmol/L Carbon Dioxide 26 (22-30) mmol/L BUN 12 (9-20) mg/dL Creatinine 0.9 (0.8-1.3) mg/dL Glucose 81 (75-100) mg/dL Calcium 9.1 (8.4-10.2) mg/dL AST 23 (5-40) units/L ALT 25 (7-56) units/L Alkaline Phosphatase 93 (35-129) units/L Total Protein 6.9 (6.3-8.2) g/dL Albumin 4.1 (3.9-5) g/dL - Imaging and Cardiology EKG: report reviewed (Normal sinus rhythm no acute ST-T wave changes)
--- NOTE | 2020-12-01 17:30 | Electrocardiograph Report ---
[facility] Test Date: 2020-11-29 Test Time: 17:12:56 Pat Name: MEKHI FUNEZ Department: Room: A483 1 Gender: M [employer] Supervisor: CORI : 1950 Requested By: J LUIS CAMPUZANO Order Number: [id number] Reading MD: Hood Bazan Measurements Intervals [place] Rate: 80 P: 23 WV: 161 QRS: 5 QRSD: 161 T: -48 QT: 420 QTc: 485 Interpretive Statements Atrial-sensed ventricular-paced rhythm Compared to ECG 11/23/2020 12:53:55 No significant change noted. Electronically Signed On 12-01-2020 17:29:41 EDT by Hood Bazan
[2020-12-01 17:58] VITALS: BP 114/69
== END 2020-12-01 18:53 | disposition home or self-care (01) ==
LOC: ED 17:06 → 4A 19:20
PROVIDERS: ADMIT Internal Medicine; ATTEND Internal Medicine
DX: I24.9 Acute ischemic heart disease, unspecified (principal); I25.10 Atherosclerotic heart disease of native coronary artery without angina pectoris; I10 Essential (primary) hypertension; E11.9 Type 2 diabetes mellitus without complications; E78.2 Mixed hyperlipidemia; R56.9 Unspecified convulsions; I42.9 Cardiomyopathy, unspecified; F41.9 Anxiety disorder, unspecified; F32.9 Major depressive disorder, single episode, unspecified; F20.9 Schizophrenia, unspecified; Z86.73 Personal history of transient ischemic attack (TIA), and cerebral infarction without residual deficits; Z79.82 Long term (current) use of aspirin; Z95.1 Presence of aortocoronary bypass graft; Z95.810 Presence of automatic (implantable) cardiac defibrillator; Z79.899 Other long term (current) drug therapy; Z98.890 Other specified postprocedural states
CPT/HCPCS: 36415; 71045; 80053; 82962; 83880; 84484; 85025; 85610; 85730; 93005; 96374; 96375; 96376; 99285; A9270; G0378; J2270; J2405

== ENCOUNTER 2020-12-29 15:17 | Emergency (ER) | payer MEDICARE ==
--- NOTE | 2020-12-29 18:37 | Event Note ---
ED Screening Note Date of service: 12/29/20 Time: 18:34 ED Screening Note: 70-year-old male patient with history of prostate enlargement and significant family history of prostate cancer presents to the emergency department with complaints of hematuria starting today. Patient was evaluated at another hospital 2 weeks ago for acute urinary retention secondary to enlarged prostate. Philip catheter was placed. Six days ago, the Philip catheter was removed. Since the catheter was removed, patient has been experiencing painful urination. He states, "there's a pimple on my penis and every time I urinate, the urine comes out the pimple and runs down my leg." He did not notice hematuria until today. His urologist is Dr. Roth. General: Awake, appropriately interactive, no acute distress. Neck: Supple. Full range of motion intact. Cardiovascular: Normal peripheral perfusion. Pulmonary: No respiratory distress. Patient is speaking normally without use of accessory muscles. Skin: No apparent rashes or lesions. Neurological: No facial asymmetry. Speech is clear. Follows commands. Patient is alert and oriented. Musculoskeletal: Moves all four extremities spontaneously with normal range of motion. Psych: Cooperative. Appropriate mood and affect. Urinalysis ordered; decision to initiate further diagnostic evaluation deferred to additional ED providers following complete history and comprehensive physical examination. I have greeted and performed a focused rapid initial assessment of this patient. A comprehensive ED assessment and evaluation of the patient, analysis of all test results, and completion of the medical decision-making process will be conducted by additional ED providers. This initial assessment/diagnostic orders/clinical plan/treatment(s) is/are subject to change based on patients health status, clinical progression and re-assessment. Further treatment and workup at subsequent clinical provider's discretion. Patient/guardian urged not to elope from the ED as their condition may be serious if not clinically assessed and managed.
[2020-12-29 21:21] LABS: Bilirubin,Urine NEG (Negative); Blood,Urine NEG (Negative); Color,Urine Amber (Yellow); Urobilinogen,Urine < 2.0 mg/dL (<2.0)
[2020-12-29 21:57] LABS: Basophils # (Auto) 0.1 K/mm3 (0.0-0.1); Basophils % (Auto) 0.9 % (0.0-1.8); Eosinophils % (Auto) 0.4 % (0.0-4.3); Hemoglobin 13.7 gm/dl (11.8-15.2); Lymphocytes # (Auto) 1.3 K/mm3 (1.2-5.4); Lymphocytes % (Auto) 16.9 % (13.4-35.0); Mean Corpuscular HGB Conc 33 % (32-34); Mean Corpuscular Volume 85 fl (84-94); Monocytes # (Auto) 0.6 K/mm3 (0.0-0.8); Monocytes % (Auto) 7.6 % (0.0-7.3); Platelet Count 233 K/mm3 (140-440); Red Blood Count 4.94 M/mm3 (3.65-5.03); Red Cell Distribution Width 13.3 % (13.2-15.2)
[2020-12-29 22:09] LABS: Protein,Urine >500 mg/dL (Negative)
[2020-12-29 22:09] LABS: INR 1.08 (0.87-1.13)
[2020-12-29 22:10] LABS: Partial Thromboplastin Time 30.6 Sec. (24.2-36.6)
[2020-12-29 22:21] LABS: Alanine Aminotransferase 20 units/L (7-56); Albumin 4.7 g/dL (3.9-5); BUN/Creatinine Ratio 15; Blood Urea Nitrogen 12 mg/dL (9-20); Calcium 9.6 mg/dL (8.4-10.2); Hemolysis Index 10
--- NOTE | 2020-12-29 22:30 | Emergency Department Report ---
ED General Adult HPI - General Chief complaint: Urogenital-Male Stated complaint: BLOOD IN URINE Time Seen by Provider: 12/29/20 21:38 Source: patient Mode of arrival: Ambulatory Limitations: No Limitations - History of Present Illness Initial comments: The patient presents to the emergency department with a chief complaint of blood in his urine. Patient states that he wore a Philip catheter for 2 weeks prior to having it removed by urology this past Saturday. Patient was seen by Dr. Roth of [place] [facility]. Patient states he was told that he has an enlarged prostate and will need surgery. Patient states since the Philip has been removed he has had leakage with a mild amount of bright red blood in the urine. Patient denies any abdominal pain, shortness breath, or chest pain. Patient complains of continuous urinary leakage from his penis and inability to void his bladder. -: Sudden, days(s) (6) Radiation: non-radiation Severity scale (0 -10): 1 Quality: burning Consistency: constant Improves with: none Worsens with: none Associated Symptoms: denies other symptoms Treatments Prior to Arrival: none - Related Data Home Medications Medication Instructions Recorded Confirmed Last Taken Mirtazapine 15 mg PO HS 04/08/16 11/30/20 11/21/20 21:00 diphenhydrAMINE [Benadryl CAP] 50 mg PO HS 04/08/16 11/30/20 11/22/20 21:00 risperiDONE 2 mg PO QDAY 04/08/16 11/30/20 11/22/20 09:00 Dutasteride [Avodart] 0.5 mg PO DAILY 11/30/20 11/30/20 Unknown Hydroxyzine HCl [hydrOXYzine] 50 mg PO QHS 11/30/20 11/30/20 Unknown Lisinopril [Zestril] 5 mg PO DAILY 11/30/20 11/30/20 Unknown Mirtazapine [Remeron] 30 mg PO DAILY 11/30/20 11/30/20 Unknown Ondansetron [Zofran ODT TAB] 4 mg PO Q8HR 11/30/20 11/30/20 Unknown Pantoprazole [Protonix TAB] 20 mg PO QDAY 11/30/20 11/30/20 Unknown levETIRAcetam [Keppra TAB] 500 mg PO BID 11/30/20 11/30/20 Unknown Previous Rx's Medication Instructions Recorded Last Taken Type glipiZIDE [Glucotrol] 5 mg PO BID #60 tablet 12/10/14 11/22/20 09:00 Rx Aspirin [Aspirin BABY CHEW TAB] 81 mg PO QDAY #30 tab.chew 12/13/14 11/22/20 09:00 Rx Benztropine [Cogentin] 1 mg PO BID #60 tablet 12/13/14 11/21/20 21:00 Rx Nitroglycerin [Nitrostat] 0.4 mg SL Q5M PRN #30 tab 12/13/14 11/22/20 12:00 Rx carvediloL [Coreg] 25 mg PO BID #60 tablet 12/13/14 11/22/20 09:00 Rx ISOSORBIDE MONOnitrate [Imdur ER] 60 mg PO QDAY #30 tablet 12/01/20 Unknown Rx Allergies Allergy/AdvReac Type Severity Reaction Status Date / Time No Known Allergies Allergy Verified 04/17/16 15:54 ED Review of Systems ROS: Stated complaint: BLOOD IN URINE Other details as noted in HPI Comment: All other systems reviewed and negative Constitutional: denies: chills, fever Eyes: denies: eye pain, eye discharge, vision change ENT: denies: ear pain, throat pain Respiratory: denies: cough, shortness of breath, wheezing Cardiovascular: denies: chest pain, palpitations Endocrine: no symptoms reported Gastrointestinal: denies: abdominal pain, nausea, diarrhea Genitourinary: hematuria. denies: urgency, dysuria Musculoskeletal: denies: back pain, joint swelling, arthralgia Skin: denies: rash, lesions Neurological: denies: headache, weakness, paresthesias Psychiatric: denies: anxiety, depression Hematological/Lymphatic: denies: easy bleeding, easy bruising ED Past Medical Hx - Past Medical History Previous Medical History?: Yes Hx Hypertension: Yes Hx CVA: Yes Hx Heart Attack/AMI: Yes Hx Congestive Heart Failure: Yes Hx Diabetes: Yes Hx Seizures: Yes Hx Psychiatric Treatment: Yes (IP and OP tx, [place], [facility], [place]/ ANXIETY / DEPRESSION/schizophrenia) Hx Asthma: No Hx COPD: No Additional medical history: Cardiomyopathy. CAD with 50% LAD lesion. pacemaker - Surgical History Past Surgical History?: Yes Hx Coronary Stent: Yes Hx Open Heart Surgery: Yes Hx Pacemaker: Yes Hx Internal Defibrillator: Yes (pacemaker) Hx Appendectomy: Yes Additional Surgical History: R foot surgery /OPEN HEART - Social History Smoking Status: Never Smoker - Medications Home Medications: Home Medications Medication Instructions Recorded Confirmed Last Taken Type glipiZIDE [Glucotrol] 5 mg PO BID #60 tablet 12/10/14 11/30/20 11/22/20 09:00 Rx Aspirin [Aspirin BABY CHEW TAB] 81 mg PO QDAY #30 tab.chew 12/13/14 11/30/20 11/22/20 09:00 Rx Benztropine [Cogentin] 1 mg PO BID #60 tablet 12/13/14 11/30/20 11/21/20 21:00 Rx Nitroglycerin [Nitrostat] 0.4 mg SL Q5M PRN #30 tab 12/13/14 11/30/20 11/22/20 1 2:00 Rx carvediloL [Coreg] 25 mg PO BID #60 tablet 12/13/14 11/30/20 11/22/20 09:00 Rx Mirtazapine 15 mg PO HS 04/08/16 11/30/20 11/21/20 21:00 History diphenhydrAMINE [Benadryl CAP] 50 mg PO HS 04/08/16 11/30/20 11/22/20 21:00 History risperiDONE 2 mg PO QDAY 04/08/16 11/30/20 11/22/20 09:00 History Dutasteride [Avodart] 0.5 mg PO DAILY 11/30/20 11/30/20 Unknown History Hydroxyzine HCl [hydrOXYzine] 50 mg PO QHS 11/30/20 11/30/20 Unknown History Lisinopril [Zestril] 5 mg PO DAILY 11/30/20 11/30/20 Unknown History Mirtazapine [Remeron] 30 mg PO DAILY 11/30/20 11/30/20 Unknown History Ondansetron [Zofran ODT TAB] 4 mg PO Q8HR 11/30/20 11/30/20 Unknown History Pantoprazole [Protonix TAB] 20 mg PO QDAY 11/30/20 11/30/20 Unknown History levETIRAcetam [Keppra TAB] 500 mg PO BID 11/30/20 11/30/20 Unknown History ISOSORBIDE MONOnitrate [Imdur ER] 60 mg PO QDAY #30 tablet 12/01/20 Unknown Rx ED Physical Exam - General Limitations: No Limitations General appearance: alert, in no apparent distress - Head Head exam: Present: atraumatic, normocephalic - Eye Eye exam: Present: normal appearance, PERRL, EOMI - ENT ENT exam: Present: mucous membranes moist - Neck Neck exam: Present: normal inspection - Respiratory Respiratory exam: Present: normal lung sounds bilaterally. Absent: respiratory distress - Cardiovascular Cardiovascular Exam: Present: regular rate, normal rhythm. Absent: systolic murmur, diastolic murmur, rubs, gallop - GI/Abdominal GI/Abdominal exam: Present: soft, normal bowel sounds, other (Distended bladder on exam). Absent: distended, tenderness - Rectal Rectal exam: Present: deferred - Extremities Exam Extremities exam: Present: normal inspection - Back Exam Back exam: Present: normal inspection - Neurological Exam Neurological exam: Present: alert, oriented X3, CN II-XII intact. Absent: motor sensory deficit - Psychiatric Psychiatric exam: Present: normal affect, normal mood - Skin Skin exam: Present: warm, dry, intact, normal color. Absent: rash ED Course Vital Signs 12/29/20 16:51 Temperature 98.8 F Pulse Rate 75 Respiratory 20 Rate Blood Pressure 129/75 [Right] O2 Sat by Pulse 100 Oximetry ED Medical Decision Making - Lab Data Result diagrams: 12/29/20 21:44 12/29/20 21:44 Lab Results 12/29/20 12/29/20 12/29/20 Range/Units 21:44 21:44 21:44 WBC 7.4 (4.5-11.0) K/mm3 RBC 4.94 (3.65-5.03) M/mm3 Hgb 13.7 (11.8-15.2) gm/dl Hct 42.0 (35.5-45.6) % MCV 85 (84-94) fl MCH 28 (28-32) pg MCHC 33 (32-34) % RDW 13.3 (13.2-15.2) % Plt Count 233 (140-440) K/mm3 Lymph % (Auto) 16.9 (13.4-35.0) % [place] % (Auto) 7.6 H (0.0-7.3) % Eos % (Auto) 0.4 (0.0-4.3) % Baso % (Auto) 0.9 (0.0-1.8) % Lymph # (Auto) 1.3 (1.2-5.4) K/mm3 [place] # (Auto) 0.6 (0.0-0.8) K/mm3 Eos # (Auto) 0.0 (0.0-0.4) K/mm3 Baso # (Auto) 0.1 (0.0-0.1) K/mm3 Seg Neutrophils % 74.2 H (40.0-70.0) % Seg Neutrophils # 5.5 (1.8-7.7) K/mm3 PT 14.5 (12.2-14.9) Sec. INR 1.08 (0.87-1.13) APTT 30.6 (24.2-36.6) Sec. Sodium 144 (137-145) mmol/L Potassium 3.6 (3.6-5.0) mmol/L Chloride 102.0 (98-107) mmol/L Carbon Dioxide 27 (22-30) mmol/L Anion Gap 19 mmol/L BUN 12 (9-20) mg/dL Creatinine 0.8 (0.8-1.3) mg/dL Estimated GFR > 60 ml/min BUN/Creatinine Ratio 15 % Glucose 109 H (75-100) mg/dL Calcium 9.6 (8.4-10.2) mg/dL Total Bilirubin 0.70 (0.1-1.2) mg/dL AST 20 (5-40) units/L ALT 20 (7-56) units/L Alkaline Phosphatase 125 (35-129) units/L Total Protein 7.1 (6.3-8.2) g/dL Albumin 4.7 (3.9-5) g/dL Albumin/Globulin Ratio 2.0 % Urine Color (Yellow) Urine Turbidity (Clear) Urine pH (5.0-7.0) Ur Specific [place] (1.003-1.030) Urine Protein (Negative) mg/dL Urine Glucose (UA) (Negative) mg/dL Urine Ketones (Negative) mg/dL Urine Blood (Negative) Urine Nitrite (Negative) Urine Bilirubin (Negative) Urine Urobilinogen (<2.0) mg/dL Ur Leukocyte Esterase (Negative) Urine WBC (Auto) (0.0-6.0) /HPF Urine RBC (Auto) (0.0-6.0) /HPF 12/29/20 Range/Units Unknown WBC (4.5-11.0) K/mm3 RBC (3.65-5.03) M/mm3 Hgb (11.8-15.2) gm/dl Hct (35.5-45.6) % MCV (84-94) fl MCH (28-32) pg MCHC (32-34) % RDW (13.2-15.2) % Plt Count (140-440) K/mm3 Lymph % (Auto) (13.4-35.0) % [place] % (Auto) (0.0-7.3) % Eos % (Auto) (0.0-4.3) % Baso % (Auto) (0.0-1.8) % Lymph # (Auto) (1.2-5.4) K/mm3 [place] # (Auto) (0.0-0.8) K/mm3 Eos # (Auto) (0.0-0.4) K/mm3 Baso # (Auto) (0.0-0.1) K/mm3 Seg Neutrophils % (40.0-70.0) % Seg Neutrophils # (1.8-7.7) K/mm3 PT (12.2-14.9) Sec. INR (0.87-1.13) APTT (24.2-36.6) Sec. Sodium (137-145) mmol/L Potassium (3.6-5.0) mmol/L Chloride (98-107) mmol/L Carbon Dioxide (22-30) mmol/L Anion Gap mmol/L BUN (9-20) mg/dL Creatinine (0.8-1.3) mg/dL Estimated GFR ml/min BUN/Creatinine Ratio % Glucose (75-100) mg/dL Calcium (8.4-10.2) mg/dL Total Bilirubin (0.1-1.2) mg/dL AST (5-40) units/L ALT (7-56) units/L Alkaline Phosphatase (35-129) units/L Total Protein (6.3-8.2) g/dL Albumin (3.9-5) g/dL Albumin/Globulin Ratio % Urine Color Iris (Yellow) Urine Turbidity Cloudy (Clear) Urine pH 9.0 H (5.0-7.0) Ur Specific [place] 1.019 (1.003-1.030) Urine Protein >500 (Negative) mg/dL Urine Glucose (UA) Neg (Negative) mg/dL Urine Ketones 20 (Negative) mg/dL Urine Blood Neg (Negative) Urine Nitrite Neg (Negative) Urine Bilirubin Neg (Negative) Urine Urobilinogen < 2.0 (<2.0) mg/dL Ur Leukocyte Esterase Mod (Negative) Urine WBC (Auto) 6.0 (0.0-6.0) /HPF Urine RBC (Auto) 2.0 (0.0-6.0) /HPF - Medical Decision Making Philip placed with leg bag Patient instructed to follow-up with Dr. Roth Critical care attestation.: If time is entered above; I have spent that time in minutes in the direct care of this critically ill patient, excluding procedure time. ED Disposition Clinical Impression: Urinary retention Disposition: DC-01 TO HOME OR SELFCARE Is pt being admited?: No Does the pt Need Aspirin: No Condition: Stable Instructions: Acute Urinary Retention, Male, [id number] Additional Instructions: Return if worse Referrals: [facility] [Provider Group] - 3-5 Days Time of Disposition: 22:58
[2020-12-29 23:28] VITALS: BP 137/88
== END 2020-12-29 23:26 | disposition home or self-care (01) ==
LOC: ED 15:17
DX: R33.9 Retention of urine, unspecified (principal); I11.0 Hypertensive heart disease with heart failure; I50.9 Heart failure, unspecified; I25.2 Old myocardial infarction; E11.9 Type 2 diabetes mellitus without complications; R56.9 Unspecified convulsions; Z90.49 Acquired absence of other specified parts of digestive tract; Z98.890 Other specified postprocedural states; Z79.899 Other long term (current) drug therapy
CPT/HCPCS: 36415; 51702; 80053; 81001; 85025; 85610; 85730; 87076; 87086; 87186

== ENCOUNTER 2021-02-08 10:40 | Observation (INO) | payer MEDICARE ==
[2021-02-08] MEDS ORDERED: ASPIRIN 81 MG TAB CHEW PO ONE (11:03)
[2021-02-08] MEDS ORDERED: NITROGLYCERIN 0.4 MG TAB SUBL SL PRN (11:03)
--- NOTE | 2021-02-08 11:04 | Emergency Department Report ---
ED General Adult HPI - General Chief complaint: Chest Pain Stated complaint: My legs are swollen, and I feel like I have fluid on my chest PUI?: No Time Seen by Provider: 02/08/21 10:44 Source: patient, RN notes reviewed, old records reviewed Mode of arrival: Stretcher Limitations: No Limitations - History of Present Illness Initial comments: The patient is a pleasant 70-year-old gentleman. His past medical history includes cardiomyopathy, with an ICD in situ, with an EF of 15 to 20%. The patient had a nuclear stress test at this hospital October 2020, which was negative for ischemic findings. He had a CT angiogram of his chest December 2019, which was negative for acute findings. The patient has a history of coronary artery disease, with an ICD in situ. He was admitted to this hospital for chest pain in November 2020, seen by cardiology, who recommended no further ischemic work-up. Today, the patient presents to the ER with a complaint of nontraumatic bilateral lower extremity swelling, subjective unintentional weight gain, and nonexertional central and left-sided chest pressure, sensation of fluid and fullness, and intermittent pain. The patient denies headache, neck pain, abdominal pain, vomiting, diaphoresis. He denies travel, surgery, immobilization, DVT and pulmonary embolism risk factors. He denies Covid symptomatology, hematemesis and bright red blood per rectum. His chest pain is left-sided does not radiate anywhere, he does not describe exacerbating or relieving factors. His bilateral lower extremity swelling is constant, painless, does not radiate anywhere, and he denies exacerbating or relieving factors. The patient endorses compliance with his medications, although he cannot recall the name of his diuretic. To me, he denies dietary indiscretions. -: Gradual, hour(s), days(s) Location: chest, left, right, lower extremity Radiation: other Quality: other Consistency: other Improves with: other Worsens with: other - Related Data Home Medications Medication Instructions Recorded Confirmed Last Taken Mirtazapine 15 mg PO HS 04/08/16 02/08/21 11/21/20 21:00 diphenhydrAMINE [Benadryl CAP] 50 mg PO HS 04/08/16 02/08/21 11/22/20 21:00 risperiDONE 2 mg PO QDAY 04/08/16 02/08/2121 09:00 Dutasteride [Avodart] 0.5 mg PO DAILY 11/30/20 02/08/21 Unknown Hydroxyzine HCl [hydrOXYzine] 50 mg PO QHS 11/30/20 02/08/21 Unknown Lisinopril [Zestril] 5 mg PO DAILY 11/30/20 02/08/21 Unknown Mirtazapine [Remeron] 30 mg PO DAILY 11/30/20 02/08/21 Unknown Ondansetron [Zofran ODT TAB] 4 mg PO Q8HR 11/30/20 02/08/21 Unknown Pantoprazole [Protonix TAB] 20 mg PO QDAY 11/30/20 02/08/21 Unknown levETIRAcetam [Keppra TAB] 500 mg PO BID 11/30/20 02/08/21 Unknown Previous Rx's Medication Instructions Recorded Last Taken Type glipiZIDE [Glucotrol] 5 mg PO BID #60 tablet 12/10/14 11/22/20 09:00 Rx Aspirin [Aspirin BABY CHEW TAB] 81 mg PO QDAY #30 tab.chew 12/13/14 11/22/20 09:00 Rx Benztropine [Cogentin] 1 mg PO BID #60 tablet 12/13/14 11/21/20 21:00 Rx Nitroglycerin [Nitrostat] 0.4 mg SL Q5M PRN #30 tab 12/13/14 11/22/20 12:00 Rx carvediloL [Coreg] 25 mg PO BID #60 tablet 12/13/14 11/22/20 09:00 Rx ISOSORBIDE MONOnitrate [Imdur ER] 60 mg PO QDAY #30 tablet 12/01/20 Unknown Rx Allergies Allergy/AdvReac Type Severity Reaction Status Date / Time No Known Allergies Allergy Verified 02/08/21 11:12 ED Review of Systems ROS: Stated complaint: CHEST PAIN Other details as noted in HPI Constitutional: weakness. denies: fever, malaise Eyes: denies: eye discharge ENT: denies: epistaxis Respiratory: shortness of breath. denies: cough Cardiovascular: chest pain, edema Gastrointestinal: denies: nausea, vomiting, hematemesis, melena, hematochezia Genitourinary: denies: dysuria Musculoskeletal: denies: back pain Neurological: weakness Psychiatric: anxiety Hematological/Lymphatic: denies: easy bleeding ED Past Medical Hx - Past Medical History Hx Hypertension: Yes Hx CVA: Yes Hx Heart Attack/AMI: Yes Hx Congestive Heart Failure: Yes Hx Diabetes: Yes Hx Seizures: Yes Hx Psychiatric Treatment: Yes (IP and OP tx, [facility], [facility], [place]/ ANXIETY / DEPRESSION/schizophrenia) Hx Asthma: No Hx COPD: No Additional medical history: Cardiomyopathy. CAD with 50% LAD lesion. pacemaker - Surgical History Hx Coronary Stent: Yes Hx Open Heart Surgery: Yes Hx Pacemaker: Yes Hx Internal Defibrillator: Yes (pacemaker) Hx Appendectomy: Yes Additional Surgical History: R foot surgery /OPEN HEART - Social History Smoking Status: Never Smoker - Medications Home Medications: Home Medications Medication Instructions Recorded Confirmed Last Taken Type glipiZIDE [Glucotrol] 5 mg PO BID #60 tablet 12/10/14 02/08/21 11/22/20 09:00 Rx Aspirin [Aspirin BABY CHEW TAB] 81 mg PO QDAY #30 tab.chew 12/13/14 02/08/21 11/22/20 09:00 Rx Benztropine [Cogentin] 1 mg PO BID #60 tablet 12/13/14 02/08/21 11/21/20 21:00 Rx Nitroglycerin [Nitrostat] 0.4 mg SL Q5M PRN #30 tab 12/13/14 02/08/21 11/22/20 12:00 Rx carvediloL [Coreg] 25 mg PO BID #60 tablet 12/13/14 02/08/21 11/22/20 09:00 Rx Mirtazapine 15 mg PO 04/08/16 02/08/21 11/21/20 21:00 History diphenhydrAMINE [Benadryl CAP] 50 mg PO 04/08/16 02/08/21 11/22/20 21:00 History risperiDONE 2 mg PO QDAY 04/08/16 02/08/21 11/22/20 09:00 History Dutasteride [Avodart] 0.5 mg PO DAILY 11/30/20 02/08/21 Unknown History Hydroxyzine HCl [hydrOXYzine] 50 mg PO QHS 11/30/20 02/08/21 Unknown History Lisinopril [Zestril] 5 mg PO DAILY 11/30/20 02/08/21 Unknown History Mirtazapine [Remeron] 30 mg PO DAILY 11/30/20 02/08/21 Unknown History Ondansetron [Zofran ODT TAB] 4 mg PO Q8HR 11/30/20 02/08/21 Unknown History Pantoprazole [Protonix TAB] 20 mg PO QDAY 11/30/20 02/08/21 Unknown History levETIRAcetam [Keppra TAB] 500 mg PO BID 11/30/20 02/08/21 Unknown History ISOSORBIDE MONOnitrate [Imdur ER] 60 mg PO QDAY #30 tablet 12/01/20 02/08/21 Unknown Rx ED Physical Exam - General Limitations: No Limitations General appearance: alert, anxious - Head Head exam: Present: atraumatic, normocephalic - Eye Eye exam: Present: normal appearance, EOMI. Absent: nystagmus - ENT ENT exam: Present: normal exam, normal orophraynx, mucous membranes moist, normal external ear exam - Neck Neck exam: Present: normal inspection, full ROM. Absent: tenderness, meningismus - Respiratory Respiratory exam: Present: decreased breath sounds. Absent: respiratory distress, wheezes, rales, rhonchi, stridor, chest wall tenderness - Cardiovascular Cardiovascular Exam: Present: regular rate, normal rhythm, normal heart sounds, JVD. Absent: bradycardia, tachycardia, irregular rhythm, systolic murmur, diastolic murmur, rubs, gallop - GI/Abdominal GI/Abdominal exam: Present: soft. Absent: distended, tenderness, guarding, rebound, rigid, pulsatile mass - Rectal Rectal exam: Present: deferred - Extremities Exam Extremities exam: Present: normal inspection, full ROM, pedal edema (3+ edema in the bilateral lower extremity), other (2+ pulses noted in the bilateral upper and lower extremities. There is no palpable cord. negative Homans sign. Muscular compartments are soft. The pelvis is stable.). Absent: calf tenderness - Back Exam Back exam: Present: normal inspection, full ROM. Absent: tenderness, CVA tenderness (R), CVA tenderness (L), paraspinal tenderness, vertebral tenderness - Neurological Exam Neurological exam: Present: alert, oriented X3, other (No facial droop. Tongue midline. Extraocular movements intact bilaterally. Facial sensation intact to light touch in V1, V2, V3 distribution bilaterally. 5 and a 5 strength in 4 extremities. Sensation intact to light touch in 4 extremities.). Absent: motor sensory deficit - Psychiatric Psychiatric exam: Present: anxious - Skin Skin exam: Present: warm, dry, intact, normal color. Absent: rash ED Course Vital Signs 02/08/21 02/08/21 02/08/21 10:40 11:00 11:18 Temperature 98 F Pulse Rate 70 70 70 Pulse Rate [ Apical] Respiratory 17 17 Rate Blood Pressure 127/96 127/96 O2 Sat by Pulse 100 100 Oximetry 02/08/21 02/08/21 02/08/21 11:25 11:30 11:46 Temperature Pulse Rate 70 97 H 79 Pulse Rate [ Apical] Respiratory 21 24 Rate Blood Pressure 131/79 131/79 132/74 O2 Sat by Pulse 98 98 Oximetry 02/08/21 02/08/21 02/08/21 12:00 12:16 12:30 Temperature Pulse Rate 70 78 70 Pulse Rate [ Apical] Respiratory 18 24 15 Rate Blood Pressure 136/74 128/79 155/98 O2 Sat by Pulse 99 96 100 Oximetry 02/08/21 02/08/21 02/08/21 12:46 13:00 13:16 Temperature Pulse Rate 83 70 70 Pulse Rate [ Apical] Respiratory 12 18 17 Rate Blood Pressure 148/125 148/125 132/79 O2 Sat by Pulse 100 99 100 Oximetry 02/08/21 02/08/21 02/08/21 13:30 13:46 14:00 Temperature Pulse Rate 83 80 74 Pulse Rate [ Apical] Respiratory 21 16 27 H Rate Blood Pressure 132/79 140/109 140/109 O2 Sat by Pulse 100 96 Oximetry 02/08/21 02/08/21 02/08/21 14:16 14:30 14:46 Temperature Pulse Rate 71 104 H 72 Pulse Rate [ Apical] Respiratory 12 20 16 Rate Blood Pressure 149/113 115/52 115/52 O2 Sat by Pulse 100 99 98 Oximetry 02/08/21 02/08/21 02/08/21 15:00 15:16 15:30 Temperature Pulse Rate 75 71 70 Pulse Rate [ Apical] Respiratory 11 L 14 16 Rate Blood Pressure 151/82 169/114 143/87 O2 Sat by Pulse 93 92 100 Oximetry 02/08/21 02/08/21 02/08/21 15:46 16:00 16:16 Temperature Pulse Rate 70 70 70 Pulse Rate [ Apical] Respiratory 17 15 15 Rate Blood Pressure 145/83 144/82 146/86 O2 Sat by Pulse 98 Oximetry 02/08/21 02/08/21 16:20 16:30 Temperature Pulse Rate 80 78 Pulse Rate [ 80 Apical] Respiratory 15 Rate Blood Pressure 155/75 O2 Sat by Pulse 99 Oximetry - Reevaluation(s) Reevaluation #1: 02/08/21 11:48 Differential diagnosis, including but not limited to: congestive heart failure, fluid overload, acute coronary syndrome, pneumonia, pneumonitis, pleurisy, pericardial effusion Assessment and plan: 70-year-old gentleman with known history of dilated cardiomyopathy with a EF of 15 to 20%, presenting with lower extremity swelling, chest tightness, chest pain, and shortness of breath. He denies DVT and pulmonary embolism risk factors. He is low risk by Wells criteria for pulmonary embolism. He is not currently tachypneic or hypoxic. Suspect CHF exacerbation. Patient at moderate risk for major adverse cardiac events per heart score. Check appropriate laboratory studies, x-ray the chest, treat symptoms, reassess after initial data points. 02/08/21 12:45 Laboratory studies are reviewed and appreciated. X-rays reviewed and appreciated. Patient will be admitted to the medical service under the care of Dr. Abel Camp of [facility] to follow CT scan of the chest negative for acute findings 02/08/21 15:19 02/09/21 16:31 ED Medical Decision Making - Lab Data Result diagrams: 02/08/21 11:21 02/08/21 11:21 Vital Signs 02/08/21 02/08/21 02/08/21 10:40 11:18 11:25 Temperature 98 F Pulse Rate 70 70 70 Respiratory 17 Rate Blood Pressure 127/96 131/79 O2 Sat by Pulse 100 Oximetry - EKG Data -: EKG Interpreted by Wy - EKG Data 02/08/21 11:47 EKG is interpreted at 10: 50 This is an atrial paced rhythm, with good ventricular capture, with a left axis deviation, QTC 521 ms, not a STEMI, left bundle branch block secondary to AV pacing. This EKG is unchanged from prior EKG from 11/29/2020 not a stemi - Radiology Data Radiology results: pending, report reviewed, image reviewed [facility] [address] [place] [address] XRay Report Signed Patient: MEKHI FUNEZ MR#: [id number] : 1950 Acct:[id number] Age/Sex: 70 / M ADM Date: 02/08/21 Loc: ED Attending Dr: Ordering Physician: ABUNDIO HENRY MD Date of Service: 02/08/21 Procedure(s): XR chest routine 2V Accession Number(s): [id number] cc: ABUNDIO HENRY MD Fluoro Time In Minutes: CHEST 2 VIEWS INDICATION / CLINICAL INFORMATION: Dyspnea. COMPARISON: 11/29/2020 FINDINGS: SUPPORT DEVICES: Stable satisfactory device positioning. HEART / MEDIASTINUM: Stable normal heart size. LUNGS / PLEURA: No significant pulmonary or pleural abnormality. No pneumothorax. ADDITIONAL FINDINGS: No significant additional findings. IMPRESSION: 1. No acute findings. Signer Name: Pedro Vee MD Signed: 02/08/2021 11:46 AM Workstation Name: [id number] Transcribed By: NANCY Dictated By: Pedro Vee MD Electronically Authenticated By: Pedro Vee MD Signed Date/Time: 02/08/21 1146 DD/ 1146 Critical care attestation.: If time is entered above; I have spent that time in minutes in the direct care of this critically ill patient, excluding procedure time. ED Disposition Clinical Impression: Acute chest pain, Fluid overload, Implantable cardioverter-defibrillator (ICD) in situ, History of coronary artery disease Disposition: OP ADMIT IP TO THIS HOSP Is pt being admited?: Yes Does the pt Need Aspirin: No Condition: Good Heart Score - HEART Score History: Slightly suspicious EKG: Non-specific Age: > 65 Risk factors: > 3 risk factors or hx of atherosclerotic disease Troponin: < normal limit HEART Score: 5 - EKG Read Time Time EKG Completed: 10:50 EKG Read Time: 10:50 - Critical Actions Critical Actions: 4-6 pts:12-16.6% risk of adverse cardiac event. Should be admitted
--- NOTE | 2021-02-08 11:50 | XRay Report ---
CHEST 2 VIEWS INDICATION / CLINICAL INFORMATION: Dyspnea. COMPARISON: 11/29/2020 FINDINGS: SUPPORT DEVICES: Stable satisfactory device positioning. HEART / MEDIASTINUM: Stable normal heart size. LUNGS / PLEURA: No significant pulmonary or pleural abnormality. No pneumothorax. ADDITIONAL FINDINGS: No significant additional findings. IMPRESSION: 1. No acute findings. Signer Name: Pedro Vee MD Signed: 02/08/2021 11:46 AM Workstation Name: [id number]
[2021-02-08 11:51] LABS: Eosinophils % (Auto) 1.2 % (0.0-4.3); Hematocrit 38.9 % (35.5-45.6); Hemoglobin 12.8 gm/dl (11.8-15.2); Lymphocytes # (Auto) 0.9 K/mm3 (1.2-5.4); Lymphocytes % (Auto) 22.5 % (13.4-35.0); Mean Corpuscular HGB Conc 33 % (32-34); Mean Corpuscular Volume 83 fl (84-94); Monocytes # (Auto) 0.3 K/mm3 (0.0-0.8); Monocytes % (Auto) 7.4 % (0.0-7.3); Platelet Count 183 K/mm3 (140-440); Red Blood Count 4.67 M/mm3 (3.65-5.03); Red Cell Distribution Width 13.6 % (13.2-15.2)
[2021-02-08 12:02] LABS: INR 1.09 (0.87-1.13)
[2021-02-08 12:06] LABS: Alanine Aminotransferase 32 units/L (7-56); Albumin 4.2 g/dL (3.9-5); BUN/Creatinine Ratio 15; Blood Urea Nitrogen 12 mg/dL (9-20); Calcium 9.1 mg/dL (8.4-10.2); Hemolysis Index 13
[2021-02-08] MEDS ORDERED: FUROSEMIDE 40 MG/4 ML INJ IV ONE (12:14)
--- NOTE | 2021-02-08 18:59 | Cat Scan Report ---
CTA CHEST WITH CONTRAST INDICATION / CLINICAL INFORMATION: cp dyspnea + d dimer. TECHNIQUE: Axial CT images were obtained through the chest after injection of 100 cc of Omnipaque 350 IV contrast. 3 plane MIP and/or 3D reconstructions were produced. All CT scans at this location are performed using CT dose reduction for ALARA by means of automated exposure control. COMPARISON: 01/25/2020 FINDINGS: PULMONARY ARTERIES: No pulmonary emboli. THORACIC AORTA: Mild atherosclerotic calcification without acute abnormality. HEART: No significant abnormality. CORONARY ARTERY CALCIFICATION: CABG. MEDIASTINUM / DEBBIE: No significant abnormality. PLEURA: No pleural effusion. No pneumothorax. LUNGS: No acute air space or interstitial disease. ADDITIONAL FINDINGS: None. UPPER ABDOMEN: No acute findings. SKELETAL STRUCTURES: No acute abnormality IMPRESSION: 1. No CT evidence for pulmonary embolism. 2. No acute findings. Signer Name: Juan F Cam MD Signed: 02/08/2021 6:55 PM Workstation Name: [id number]
--- NOTE | 2021-02-09 00:10 | History and Physical Report ---
History of Present Illness Date of examination: 02/08/21 Date of admission: 02/08/21 12:47 Chief complaint: Chest pain for 1 day History of present illness: 70-year-old with multiple medical problems including type 2 diabetes, coronary artery disease, hypertension, GERD and seizure disorder comes in for left-sided chest pain. Retrosternal. No shortness of breath. No radiation. No diaphoresis. Patient is compliant with his medications. No fever or chills. P rachel has a history of coronary artery disease and ICD in place. Patient also has stents in the past and open heart surgery. Chest pain is about 5 on a scale of 1-10. - Past Medical History --Hypertension: Yes --CVA: Yes --Heart Attack/AMI: Yes --Congestive Heart Failure: Yes --Diabetes: Yes --Seizures: Yes Hx Psychiatric Treatment: Yes ([place], [place], [place]/ ANXIETY / DEPRESSION/schizophrenia) Additional medical history: Cardiomyopathy. CAD with 50% LAD lesion. pacemaker - Surgical History --Coronary Stent: Yes --Open Heart Surgery: Yes --Pacemaker: Yes --Internal Defibrillator: Yes (pacemaker) --Appendectomy: Yes Additional Surgical History: R foot surgery /OPEN HEART - Social History Smoking Status: Never Smoker Family history Htn Review of Systems ROS: Stated complaint: CHEST PAIN Other details as noted in HPI Constitutional: weakness. denies: fever, malaise Eyes: denies: eye discharge ENT: denies: epistaxis Respiratory: shortness of breath. denies: cough Cardiovascular: chest pain, edema Gastrointestinal: denies: nausea, vomiting, hematemesis, melena, hematochezia Genitourinary: denies: dysuria Musculoskeletal: denies: back pain Neurological: weakness Psychiatric: anxiety Hematological/Lymphatic: denies: easy bleeding Medications and Allergies Allergies Allergy/AdvReac Type Severity Reaction Status Date / Time No Known Allergies Allergy Verified 02/08/21 11:12 Home Medications Medication Instructions Recorded Confirmed Last Taken Type glipiZIDE [Glucotrol] 5 mg PO BID #60 tablet 12/10/14 02/08/21 11/22/20 09:00 Rx Aspirin [Aspirin BABY CHEW TAB] 81 mg PO QDAY #30 tab.chew 12/13/14 02/08/21 11/22/20 09:00 Rx Benztropine [Cogentin] 1 mg PO BID #60 tablet 12/13/14 02/08/21 11/21/20 21:00 Rx Nitroglycerin [Nitrostat] 0.4 mg SL Q5M PRN #30 tab 12/13/14 02/08/21 11/22/20 12:00 Rx carvediloL [Coreg] 25 mg PO BID #60 tablet 12/13/14 02/08/21 11/22/20 09:00 Rx Mirtazapine 15 mg PO HS 04/08/16 02/08/21 11/21/20 21:00 History diphenhydrAMINE [Benadryl CAP] 50 mg PO HS 04/08/16 02/08/21 11/22/20 21:00 History risperiDONE 2 mg PO QDAY 04/08/16 02/08/21 11/22/20 09:00 History Dutasteride [Avodart] 0.5 mg PO DAILY 11/30/20 02/08/21 Unknown History Hydroxyzine HCl [hydrOXYzine] 50 mg PO QHS 11/30/20 02/08/21 Unknown History Lisinopril [Zestril] 5 mg PO DAILY 11/30/20 02/08/21 Unknown History Mirtazapine [Remeron] 30 mg PO DAILY 11/30/20 02/08/21 Unknown History Ondansetron [Zofran ODT TAB] 4 mg PO Q8HR 11/30/20 02/08/21 Unknown History Pantoprazole [Protonix TAB] 20 mg PO QDAY 11/30/20 02/08/21 Unknown History levETIRAcetam [Keppra TAB] 500 mg PO BID 11/30/20 02/08/21 Unknown History ISOSORBIDE MONOnitrate [Imdur ER] 60 mg PO QDAY #30 tablet 12/01/20 02/08/21 Unknown Rx Active Meds: Active Medications Nitroglycerin (Nitroglycerin 0.4 Mg Tab Subl) 0.4 mg SL .Q5MIN PRN PRN Reason: Chest Pain Last Admin: 02/08/21 11:25 Dose: 0.4 mg Documented by: Exam - Constitutional Vitals: Temp Pulse Resp BP Pulse Ox 97.8 F 71 16 128/79 100 02/08/21 23:15 02/08/21 23:15 02/08/21 23:15 02/08/21 23:15 02/08/21 23:15 General appearance: Present: no acute distress, well-nourished - EENT Eyes: Present: PERRL ENT: hearing intact, clear oral mucosa - Neck Neck: Present: supple, normal ROM - Respiratory Respiratory effort: normal Respiratory: bilateral: CTA - Cardiovascular Heart rate: 78 Rhythm: regular Heart Sounds: Present: S1 & S2. Absent: rub, click - Extremities Extremities: no ischemia, pulses intact, pulses symmetrical, No edema Peripheral Pulses: within normal limits - Abdominal General gastrointestinal: Present: soft, non-tender, non-distended, normal bowel sounds Male genitourinary: Present: normal - Rectal Rectal Exam: deferred - Integumentary Integumentary: Present: clear, warm, dry - Musculoskeletal Musculoskeletal: gait normal, strength equal bilaterally - Psychiatric Psychiatric: appropriate mood/affect, intact judgment & insight - Neurologic Neurologic: CNII-XII intact, moves all extremities - Allied Health Allied health notes reviewed: nursing, case management HEART Score - HEART Score EKG: Non-specific Age: > 65 Risk factors: > 3 risk factors or hx of atherosclerotic disease Troponin: Troponin T < 0.010 ng/mL (0.00-0.029) 02/08/21 11:21 Troponin: < normal limit - Critical Actions Critical Actions: 4-6 pts:12-16.6% risk of adverse cardiac event. Should be admitted Results - Labs CBC & Chem 7: 02/08/21 11:21 02/08/21 11:21 Labs: Laboratory Last Values WBC 3.9 K/mm3 (4.5-11.0) L 02/08/21 11:21 RBC 4.67 M/mm3 (3.65-5.03) 02/08/21 11:21 Hgb 12.8 gm/dl (11.8-15.2) 02/08/21 11: Hct 38.9 % (35.5-45.6) 02/08/21 11:21 MCV 83 fl (84-94) L 02/08/21 11:21 MCH 28 pg (28-32) 02/08/21 11: MCHC 33 % (32-34) 02/08/21 11: RDW 13.6 % (13.2-15.2) 02/08/21 11:21 Plt Count 183 K/mm3 (140-440) 02/08/21 11:21 Lymph % (Auto) 22.5 % (13.4-35.0) 02/08/21 11:21 Andrews % (Auto) 7.4 % (0.0-7.3) H 02/08/21 11:21 Eos % (Auto) 1.2 % (0.0-4.3) 02/08/21 11:21 Baso % (Auto) 1.0 % (0.0-1.8) 02/08/21 11:21 Lymph # (Auto) 0.9 K/mm3 (1.2-5.4) L 02/08/21 11:21 Andrews # (Auto) 0.3 K/mm3 (0.0-0.8) 02/08/21 11:21 Eos # (Auto) 0.0 K/mm3 (0.0-0.4) 02/08/21 11:21 Baso # (Auto) 0.0 K/mm3 (0.0-0.1) 02/08/21 11:21 Seg Neutrophils % 67.9 % (40.0-70.0) 02/08/21 11:21 Seg Neutrophils # 2.6 K/mm3 (1.8-7.7) 02/08/21 11:21 PT 14.6 Sec. (12.2-14.9) 02/08/21 11:21 INR 1.09 (0.87-1.13) 02/08/21 11:21 D-Dimer 755.32 ng/mlDDU (0-234) H 02/08/21 12:45 Sodium 143 mmol/L (137-145) 02/08/21 11:21 Potassium 3.9 mmol/L (3.6-5.0) 02/08/21 11:21 Chloride 106.3 mmol/L (98-107) 02/08/21 11:21 Carbon Dioxide 27 mmol/L (22-30) 02/08/21 11:21 Anion Gap 14 mmol/L 02/08/21 11:21 BUN 12 mg/dL (9-20) 02/08/21 11:21 Creatinine 0.8 mg/dL (0.8-1.3) 02/08/21 11:21 Estimated GFR > 60 ml/min 02/08/21 11:21 BUN/Creatinine Ratio 15 % 02/08/21 11:21 Glucose 118 mg/dL (75-100) H 02/08/21 11:21 Calcium 9.1 mg/dL (8.4-10.2) 02/08/21 11:21 Magnesium 2.20 mg/dL (1.7-2.3) 02/08/21 11:21 Total Bilirubin 0.20 mg/dL (0.1-1.2) 02/08/21 11:21 AST 26 units/L (5-40) 02/08/21 11:21 ALT 32 units/L (7-56) 02/08/21 11:21 Alkaline Phosphatase 102 units/L (35-129) 02/08/21 11:21 Total Creatine Kinase 278 units/L (55-170) H 02/08/21 11:21 Troponin T < 0.010 ng/mL (0.00-0.029) 02/08/21 11:21 NT-Pro-B Natriuret Pep 560.8 pg/mL (0-900) 02/08/21 11:21 Total Protein 7.4 g/dL (6.3-8.2) 02/08/21 11:21 Albumin 4.2 g/dL (3.9-5) 02/08/21 11:21 Albumin/Globulin Ratio 1.3 % 02/08/21 11:21 Short CBC 02/08/21 Range/Units 11:21 WBC 3.9 L (4.5-11.0) K/mm3 Hgb 12.8 (11.8-15.2) gm/dl Hct 38.9 (35.5-45.6) % Plt Count 183 (140-440) K/mm3 BMP 02/08/21 11:21 Sodium 143 Potassium 3.9 Chloride 106.3 Carbon Dioxide 27 BUN 12 Creatinine 0.8 Glucose 118 H Calcium 9.1 Cardiac Enzymes 02/08/21 02/08/21 Range/Units 11:21 11:21 Total Creatine Kinase 278 H (55-170) units/L Troponin T < 0.010 (0.00-0.029) ng/mL Liver Function 02/08/21 Range/Units 11:21 Total Bilirubin 0.20 (0.1-1.2) mg/dL AST 26 (5-40) units/L ALT 32 (7-56) units/L Alkaline Phosphatase 102 (35-129) units/L Albumin 4.2 (3.9-5) g/dL - Imaging and Cardiology EKG: report reviewed (Pacemaker rhythm no acute ST-T wave changes) Imaging and Cardiology: Chest x-ray No acute findings CT angiogram of the chest No acute findings of pulmonary embolism No acute findings Philpi/IV: Voiding Method Toilet Assessment and Plan Advance Directives: Yes (Full code) VTE prophylaxis?: Chemical Plan of care discussed with patient/family: Yes - Patient Problems (1) Acute coronary syndrome Current Visit: Yes Status: Acute Plan to address problem: Patient has extensive history of coronary artery disease and open heart surgery and stents. Serial troponins and Lexiscan in the morning Cardiology consult (2) Hypertension Current Visit: No Status: Chronic Qualifiers: Hypertension type: primary hypertension Qualified Code(s): I10 - Essential (primary) hypertension Plan to address problem: Continue antihypertensives (3) CAD (coronary artery disease) Current Visit: No Status: Chronic Qualifiers: Coronary Disease-Associated Artery/Lesion type: [place] artery [place] vs. transplanted heart: [place] heart Plan to address problem: Continue aspirin and isosorbide mononitrate (4) T2DM (type 2 diabetes mellitus) Current Visit: Yes Status: Chronic Qualifiers: Diabetes mellitus moth exterminator insulin use: without moth exterminator use Plan to address problem: Continue oral hypoglycemics and coverage (5) Seizure disorder Current Visit: Yes Status: Chronic Plan to address problem: Continue Keppra (6) GERD (gastroesophageal reflux disease) Current Visit: Yes Status: Chronic Qualifiers: Esophagitis presence: without esophagitis Qualified Code(s): K21.9 - Gastro-esophageal reflux disease without esophagitis Plan to address problem: Continue PPIs (7) DVT prophylaxis Current Visit: Yes Status: Acute Plan to address problem: On heparin and GI prophylaxis
[2021-02-09] MEDS: BENZTROPINE 1 MG TAB PO SCH ×3 (01:19→21:26)
[2021-02-09] MEDS: POTASSIUM CHLORIDE ER 20 MEQ TAB PO SCH ×3 (01:19→21:26)
[2021-02-09] MEDS: carvediloL 25 MG TAB PO SCH ×3 (01:19→18:32)
[2021-02-09] MEDS: FUROSEMIDE 40 MG/4 ML INJ IV SCH ×2 (06:01→18:32)
[2021-02-09] MEDS: ONDANSETRON 4 MG ODT TAB PO SCH ×3 (06:01→21:27)
[2021-02-09] MEDS: LISINOPRIL 5 MG TAB PO SCH (09:36)
[2021-02-09] MEDS: glipiZIDE 5 MG TAB PO SCH ×2 (09:53→18:31)
[2021-02-09] MEDS: ASPIRIN 81 MG TAB CHEW PO SCH (09:54)
[2021-02-09] MEDS: levETIRAcetam 500 MG TAB PO SCH ×2 (09:55→21:26)
[2021-02-09] MEDS: PANTOPRAZOLE 20 MG TAB PO SCH (09:55)
[2021-02-09] MEDS: MIRTAZAPINE 15 MG TAB PO SCH ×2 (09:56→21:26)
[2021-02-09] MEDS: risperiDONE 1 MG TAB PO SCH (09:56)
[2021-02-09] MEDS ORDERED: DUTASTERIDE 0.5 MG PO SCH (10:00)
--- NOTE | 2021-02-09 10:42 | Electrocardiograph Report ---
[facility] Test Date: 2021-02-08 Test Time: 10:50:51 Pat Name: MEKHI FUNEZ Department: Room: A478 Gender: M Perinatal Coordinator: CLSanto : 1950 Requested By: ABUNDIO HENRY Order Number: [id number] Reading MD: Hood Bazan Measurements Intervals [place] Rate: 71 P: 9 MN: 163 QRS: -43 QRSD: 170 T: 91 QT: 478 QTc: 521 Interpretive Statements A-V dual-paced rhythm with some inhibition Compared to ECG 11/29/2020 17:12:56 Atrial-sensed ventricular-paced complex(es) or rhythm no longer present Electronically Signed On 02-09-2021 10:42:01 EDT by Hood Bazan
--- NOTE | 2021-02-09 12:37 | Progress Note ---
Assessment and Plan Assessment and plan: (1) Acute coronary syndrome Current Visit: Yes Status: Acute Plan to address problem: Patient has extensive history of coronary artery disease and open heart surgery and stents. Serial troponins and Lexiscan in the morning Cardiology consult (2) Hypertension Current Visit: No Status: Chronic Qualifiers: Hypertension type: primary hypertension Qualified Code(s): I10 - Essential (primary) hypertension Plan to address problem: Continue antihypertensives (3) CAD (coronary artery disease) Current Visit: No Status: Chronic Qualifiers: Coronary Disease-Associated Artery/Lesion type: rampart artery [place] vs. 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 Patient has history of nonischemic cardiomyopathy with ejection fraction of 25 to 30%. Patient has AICD in place. Patient was given IV Lasix and other appropriate medications were reconciled. Cardiology consulted. History Interval history: Patient was seen and evaluated this morning Patient said shortness of breath and swelling of the leg improved Hospitalist Physical - Physical exam Narrative exam: Not in cardiopulmonary distress. The patient appeared well nourished and normally developed. Vital signs as documented. Head exam is unremarkable. No scleral icterus . Neck is without jugular venous distension, thyromegaly, or carotid bruits. Lungs are clear to auscultation. Cardiac exam reveals regular rate and Rhythm. Abdominal exam reveals normal bowel sounds, nontender, no organomegaly. Extremities are nonedematous and both femoral and pedal pulses are normal. STEEPING PRESS TENDER: Alert and oriented 3. No focal weakness. - Constitutional Vitals: Temp Pulse Resp BP Pulse Ox 97.9 F 90 16 100/58 95 02/09/21 12:16 02/09/21 12:16 02/09/21 12:16 02/09/21 12:16 02/09/21 12:16 General appearance: Present: no acute distress, well-nourished HEART Score - HEART Score EKG: Non-specific Age: > 65 Risk factors: > 3 risk factors or hx of atherosclerotic disease Troponin: Troponin T < 0.010 ng/mL (0.00-0.029) 02/09/21 09:55 Troponin: < normal limit - Critical Actions Critical Actions: 4-6 pts:12-16.6% risk of adverse cardiac event. Should be adm itted Results - Labs CBC & Chem 7: 02/08/21 11:21 02/08/21 11:21 Labs: Laboratory Last Values WBC 3.9 K/mm3 (4.5-11.0) L 02/08/21 11:21 RBC 4.67 M/mm3 (3.65-5.03) 02/08/21 11:21 Hgb 12.8 gm/dl (11.8-15.2) 02/08/21 11:21 Hct 38.9 % (35.5-45.6) 02/08/21 11:21 MCV 83 fl (84-94) L 02/08/21 11:21 MCH 28 pg (28-32) 02/08/21 11:21 MCHC 33 % (32-34) 02/08/21 11:21 RDW 13.6 % (13.2-15.2) 02/08/21 11:21 Plt Count 183 K/mm3 (140-440) 02/08/21 11:21 Lymph % (Auto) 22.5 % (13.4-35.0) 02/08/21 11:21 [place] % (Auto) 7.4 % (0.0-7.3) H 02/08/21 11:21 Eos % (Auto) 1.2 % (0.0-4.3) 02/08/21 11:21 Baso % (Auto) 1.0 % (0.0-1.8) 02/08/21 11:21 Lymph # (Auto) 0.9 K/mm3 (1.2-5.4) L 02/08/21 11:21 [place] # (Auto) 0.3 K/mm3 (0.0-0.8) 02/08/21 11:21 Eos # (Auto) 0.0 K/mm3 (0.0-0.4) 02/08/21 11:21 Baso # (Auto) 0.0 K/mm3 (0.0-0.1) 02/08/21 11:21 Seg Neutrophils % 67.9 % (40.0-70.0) 02/08/21 11:21 Seg Neutrophils # 2.6 K/mm3 (1.8-7.7) 02/08/21 11:21 PT 14.6 Sec. (12.2-14.9) 02/08/21 11:21 INR 1.09 (0.87-1.13) 02/08/21 11:21 D-Dimer 755.32 ng/mlDDU (0-234) H 02/08/21 12:45 Sodium 143 mmol/L (137-145) 02/08/21 11:21 Potassium 3.9 mmol/L (3.6-5.0) 02/08/21 11:21 Chloride 106.3 mmol/L (98-107) 02/08/21 11:21 Carbon Dioxide 27 mmol/L (22-30) 02/08/21 11:21 Anion Gap 14 mmol/L 02/08/21 11:21 BUN 12 mg/dL (9-20) 02/08/21 11:21 Creatinine 0.8 mg/dL (0.8-1.3) 02/08/21 11:21 Estimated GFR > 60 ml/min 02/08/21 11:21 BUN/Creatinine Ratio 15 % 02/08/21 11:21 Glucose 118 mg/dL (75-100) H 02/08/21 11:21 Calcium 9.1 mg/dL (8.4-10.2) 02/08/21 11:21 Magnesium 2.20 mg/dL (1.7-2.3) 02/08/21 11:21 Total Bilirubin 0.20 mg/dL (0.1-1.2) 02/08/21 11:21 AST 26 units/L (5-40) 02/08/21 11:21 ALT 32 units/L (7-56) 02/08/21 11:21 Alkaline Phosphatase 102 units/L (35-129) 02/08/21 11:21 Total Creatine Kinase 278 units/L (55-170) H 02/08/21 11:21 Troponin T < 0.010 ng/mL (0.00-0.029) 02/09/21 09:55 NT-Pro-B Natriuret Pep 560.8 pg/mL (0-900) 02/08/21 11:21 Total Protein 7.4 g/dL (6.3-8.2) 02/08/21 11:21 Albumin 4.2 g/dL (3.9-5) 02/08/21 11:21 Albumin/Globulin Ratio 1.3 % 02/08/21 11:21 Philip/IV: Voiding Method Toilet Active Medications - Current Medications Current Medications: Generic Name Dose Route Start Last Admin Trade Name Freq PRN Reason Stop Dose Admin Aspirin 81 mg 02/09/21 10:00 02/09/21 09:54 Aspirin 81 Mg Tab Chew PO 81 mg QDAY AMBIKA Administration Benztropine Mesylate 1 mg 02/09/21 01:00 02/09/21 09:54 Benztropine 1 Mg Tab PO 1 mg BID AMBIKA Administration Carvedilol 25 mg 02/09/21 01:00 02/09/21 09:52 Carvedilol 25 Mg Tab PO 25 mg BID@0800,1700 AMBIKA Administration Diphenhydramine HCl 50 mg 02/09/21 22:00 Diphenhydramine 25 Mg Cap PO HS AMBIKA Furosemide 40 mg 02/09/21 06:00 02/09/21 06:01 Furosemide 40 Mg/4 Ml Inj IV 40 mg 0600,1800 AMBIKA Administration Glipizide 5 mg 02/09/21 08:00 02/09/21 09:53 Glipizide 5 Mg Tab PO 5 mg BIDDIAB AMBIKA Administration Hydroxyzine HCl 50 mg 02/09/21 22:00 Hydroxyzine Hcl 25 Mg Tab PO QHS AMBIKA Isosorbide Mononitrate 60 mg 02/09/21 10:00 02/09/21 09:54 Isosorbide Mononitrate Er 60 Mg Tab PO 60 mg QDAY AMBIKA Administration Levetiracetam 500 mg 02/09/21 10:00 02/09/21 09:55 Levetiracetam 500 Mg Tab PO 500 mg BID AMBIKA Administration Lisinopril 5 mg 02/09/21 10:00 02/09/21 09:36 Lisinopril 5 Mg Tab PO Not Given DAILY AMBIKA Mirtazapine 15 mg 02/09/21 22:00 Mirtazapine 15 Mg Tab PO HS AMBIKA Mirtazapine 30 mg 02/09/21 10:00 02/09/21 09:56 Mirtazapine 15 Mg Tab PO 30 mg DAILY AMBIKA Administration Miscellaneous Medication 0.5 mg 02/09/21 10:00 Dutasteride [Avodart] PO DAILY AMBIKA Nitroglycerin 0.4 mg 02/08/21 11:03 02/08/21 11:25 Nitroglycerin 0.4 Mg Tab Subl SL 0.4 mg .Q5MIN PRN Administration Chest Pain Ondansetron HCl 4 mg 02/09/21 06:00 02/09/21 06:01 Ondansetron 4 Mg Odt Tab PO 4 mg Q8HR AMBIKA Administration Pantoprazole Sodium 20 mg 02/09/21 10:00 02/09/21 09:55 Pantoprazole 20 Mg Tab PO 20 mg QDAY AMBIKA Administration Potassium Chloride 20 meq 02/09/21 01:00 02/09/21 09:55 Potassium Chloride Er 20 Meq Tab PO 20 meq BID AMBIKA Administration Risperidone 2 mg 02/09/21 10:00 02/09/21 09:56 Risperidone 1 Mg Tab PO 2 mg QDAY AMBIKA Administration
--- NOTE | 2021-02-09 14:11 | Consultation ---
History of Present Illness Consult date: 02/09/21 Consult reason: chest pain History of present illness: The patient is a 70-year-old man with a history of coronary artery disease and ischemic cardiomyopathy. Five years ago, he underwent 4-vessel coronary artery bypass, with left internal mammary artery graft to the LAD, saphenous vein graft to the right posterior descending branch, and sequential saphenous vein graft to a diagonal branch of the LAD and an obtuse marginal branch of the circumflex. He has a residual severe ischemic cardiomyopathy with ejection fraction of 15 to 20% on the most recent echocardiogram. As a result of his cardiomyopathy, he has an ICD implant for primary prevention. He presents to the hospital at this time with shortness of breath, fatigue, lower extremity edema and atypical chest pain. ECG is a ventricular paced rhythm at 71. Serial troponin levels were normal. Chest x-ray showed cardiomegaly, dual-chamber ICD in situ, clear lungs. He is unable to affirmatively confirm compliance with low-salt diet and compliance with his guideline directed medical therapy. Past History Past Medical History: CAD, diabetes, heart failure Past Surgical History: CABG, Other (ICD implant) Medications and Allergies Allergies Allergy/AdvReac Type Severity Reaction Status Date / Time No Known Allergies Allergy Verified 02/08/21 11:12 Home Medications Medication Instructions Recorded Confirmed Last Taken Type glipiZIDE [Glucotrol] 5 mg PO BID #60 tablet 12/10/14 02/08/21 11/22/20 09:00 Rx Aspirin [Aspirin BABY CHEW TAB] 81 mg PO QDAY #30 tab.chew 12/13/14 02/08/21 11/22/20 09:00 Rx Benztropine [Cogentin] 1 mg PO BID #60 tablet 12/13/14 02/08/21 11/21/20 21:00 Rx Nitroglycerin [Nitrostat] 0.4 mg SL Q5M PRN #30 tab 12/13/14 02/08/21 11/22/20 12:00 Rx carvediloL [Coreg] 25 mg PO BID #60 tablet 12/13/14 02/08/21 11/22/20 09:00 Rx Mirtazapine 15 mg PO HS 04/08/16 02/08/21 11/21/20 21:00 History diphenhydrAMINE [Benadryl CAP] 50 mg PO HS 04/08/16 02/08/21 11/22/20 21:00 History risperiDONE 2 mg PO QDAY 04/08/16 02/08/21 11/22/20 09:00 History Dutasteride [Avodart] 0.5 mg PO DAILY 11/30/20 02/08/21 Unknown History Hydroxyzine HCl [hydrOXYzine] 50 mg PO QHS 11/30/20 02/08/21 Unknown History Lisinopril [Zestril] 5 mg PO DAILY 11/30/20 02/08/21 Unknown History Mirtazapine [Remeron] 30 mg PO DAILY 11/30/20 02/08/21 Unknown History Ondansetron [Zofran ODT TAB] 4 mg PO Q8HR 11/30/20 02/08/21 Unknown History Pantoprazole [Protonix TAB] 20 mg PO QDAY 11/30/20 02/08/21 Unknown History levETIRAcetam [Keppra TAB] 500 mg PO BID 11/30/20 02/08/21 Unknown History ISOSORBIDE MONOnitrate [Imdur ER] 60 mg PO QDAY #30 tablet 12/01/20 02/08/21 Unknown Rx Active Meds: Active Medications Aspirin (Aspirin 81 Mg Tab Chew) 81 mg PO QDAY [facility] Last Admin: 02/09/21 09:54 Dose: 81 mg Documented by: Benztropine Mesylate (Benztropine 1 Mg Tab) 1 mg PO BID [facility] Last Admin: 02/09/21 09:54 Dose: 1 mg Documented by: Carvedilol (Carvedilol 25 Mg Tab) 25 mg PO BID@0800,1700 [facility] Last Admin: 02/09/21 09:52 Dose: 25 mg Documented by: Diphenhydramine HCl (Diphenhydramine 25 Mg Cap) 50 mg PO [facility] Furosemide (Furosemide 40 Mg/4 Ml Inj) 40 mg IV 0600,1800 [facility] Last Admin: 02/09/21 06:01 Dose: 40 mg Documented by: Glipizide (Glipizide 5 Mg Tab) 5 mg PO BIDDIAB [facility] Last Admin: 02/09/21 09:53 Dose: 5 mg Documented by: Hydroxyzine HCl (Hydroxyzine Hcl 25 Mg Tab) 50 mg PO QHS [facility] Isosorbide Mononitrate (Isosorbide Mononitrate Er 60 Mg Tab) 60 mg PO QDAY [facility] Last Admin: 02/09/21 09:54 Dose: 60 mg Documented by: Levetiracetam (Levetiracetam 500 Mg Tab) 500 mg PO BID [facility] Last Admin: 02/09/21 09:55 Dose: 500 mg Documented by: Lisinopril (Lisinopril 5 Mg Tab) 5 mg PO DAILY [facility] Last Admin: 02/09/21 09:36 Dose: Not Given Documented by: Mirtazapine (Mirtazapine 15 Mg Tab) 15 mg PO [facility] Mirtazapine (Mirtazapine 15 Mg Tab) 30 mg PO DAILY [facility] Last Admin: 02/09/21 09:56 Dose: 30 mg Documented by: Miscellaneous Medication (Dutasteride [Avodart]) 0.5 mg PO DAILY [facility] Nitroglycerin (Nitroglycerin 0.4 Mg Tab Subl) 0.4 mg SL .Q5MIN PRN PRN Reason: Chest Pain Last Admin: 02/08/21 11:25 Dose: 0.4 mg Documented by: Ondansetron HCl (Ondansetron 4 Mg Odt Tab) 4 mg PO Q8HR [facility] Last Admin: 02/09/21 06:01 Dose: 4 mg Documented by: Pantoprazole Sodium (Pantoprazole 20 Mg Tab) 20 mg PO QDAY [facility] Last Admin: 02/09/21 09:55 Dose: 20 mg Documented by: Potassium Chloride (Potassium Chloride Er 20 Meq Tab) 20 meq PO BID [facility] Last Admin: 02/09/21 09:55 Dose: 20 meq Documented by: Risperidone (Risperidone 1 Mg Tab) 2 mg PO QDAY [facility] Last Admin: 02/09/21 09:56 Dose: 2 mg Documented by: Review of Systems Cardiovascular: chest pain, edema, shortness of breath, no orthopnea, no palpitations, no rapid/irregular heart beat, no syncope, no lightheadedness Physical Examination Vital Signs Temp Pulse Resp BP Pulse Ox 98 F 70 17 127/96 100 02/08/21 10:40 02/08/21 10:40 02/08/21 10:40 02/08/21 10:40 02/08/21 10:40 General appearance: no acute distress HEENT: Positive: PERRL Neck: Positive: neck supple Cardiac: Positive: Irregularly Regular Lungs: Positive: Decreased Breath Sounds Neuro: Positive: Grossly Intact Abdomen: Positive: Soft Male genitourinary: Positive: deferred Skin: Positive: Clear Extremities: Present: edema (Mild) Results 02/08/21 11:21 02/08/21 11:21 EKG interpretations Pacemaker: ventricular pacing w/capt Assessment and Plan - Patient Problems (1) Acute on chronic systolic (congestive) heart failure Current Visit: Yes Status: Acute Plan to address problem: Patient has severe ischemic cardiomyopathy, chronic systolic left ventricular failure, suboptimal compliance with dietary low salt restriction and medical therapy. We will optimize medical management, including recommendations for aggressive outpatient follow-up after his discharge.
[2021-02-09] MEDS: diphenhydrAMINE 25 MG CAP PO SCH (21:26)
[2021-02-09] MEDS: hydrOXYzine HCL 25 MG TAB PO SCH (21:26)
[2021-02-10] MEDS: FUROSEMIDE 40 MG/4 ML INJ IV SCH (06:47)
[2021-02-10] MEDS: ONDANSETRON 4 MG ODT TAB PO SCH ×2 (06:47→22:32)
[2021-02-10 07:33] LABS: BUN/Creatinine Ratio 13; Blood Urea Nitrogen 13 mg/dL (9-20); Calcium 9.6 mg/dL (8.4-10.2); Hemolysis Index 13
[2021-02-10 08:22] VITALS: BP 129/82
[2021-02-10] MEDS: BENZTROPINE 1 MG TAB PO SCH ×2 (09:55→22:33)
[2021-02-10] MEDS: ASPIRIN 81 MG TAB CHEW PO SCH (09:55)
[2021-02-10] MEDS: carvediloL 25 MG TAB PO SCH (09:55)
[2021-02-10] MEDS: levETIRAcetam 500 MG TAB PO SCH ×2 (09:56→22:32)
[2021-02-10] MEDS: POTASSIUM CHLORIDE ER 20 MEQ TAB PO SCH ×2 (09:56→22:33)
[2021-02-10] MEDS: glipiZIDE 5 MG TAB PO SCH (09:56)
[2021-02-10] MEDS: risperiDONE 1 MG TAB PO SCH (09:56)
[2021-02-10] MEDS: PANTOPRAZOLE 20 MG TAB PO SCH (09:56)
[2021-02-10] MEDS: MIRTAZAPINE 15 MG TAB PO SCH ×2 (09:56→22:32)
[2021-02-10] MEDS: LISINOPRIL 5 MG TAB PO SCH (10:00)
--- NOTE | 2021-02-10 11:19 | Discharge Summary ---
Providers - Providers Date of Admission: 02/08/21 12:47 Date of discharge: 02/10/21 Attending physician: PÉREZ COLUNGA MD 02/08/21 12:15 Consult to Physician [CONS] Urgent Comment: Consulting Provider: ANJANA CASTILLO Physician Instructions: Reason For Exam: cp, lower ext edema 02/09/21 11:13 Physical Therapy Evaluation and Treat [CONS] Routine Comment: Reason For Exam: Evaluation for gait weakness Primary care physician: FILLER SHREDDER Hospitalization Reason for admission: Acute on chronic systolic CHF Condition: Good Hospital course: History of present illness: 70-year-old with multiple medical problems including type 2 diabetes, coronary artery disease, hypertension, GERD and seizure disorder comes in for left-sided chest pain. Retrosternal. No shortness of breath. No radiation. No diaphoresis. Patient is compliant with his medications. No fever or chills. Patient has a history of coronary artery disease and ICD in place. Patient also has stents in the past and open heart surgery. Chest pain is about 5 on a scale of 1-10. Hospital course Patient's main complaint was bilateral lower extremity swelling and shortness of breath. Patient was admitted to the floor and was treated with IV fluids and appropriate medication for CHF exacerbation management. Patient swelling subsided. Patient was breathing well and no shortness of breath. Patient did not have any chest pain. Patient had echo with ejection fraction of 15 to 20%. Patient had stent in place. Patient was doing well. Patient was seen by cardiology and recommend to discharge with guideline directed medical therapy and recommend to discharge patient. I refilled his medications. Also put as needed Lasix and discussed with the patient when to take it. Patient was hemodynamically stable and discharged home. Cardiology recommend to have follow-up with his [place] lining stitcher in 3 to 5 days. Disposition: - TO HOME OR SELFCARE Final Discharge Diagnosis (Prints w/discharge instructions): Acute on chronic systolic CHF exacerbation. History of CAD status post CABG Time spent for discharge: 35-minutes - Discharge Diagnoses (1) Acute on chronic systolic (congestive) heart failure Status: Acute (2) History of coronary artery disease Status: Acute (3) Implantable cardioverter-defibrillator (ICD) in situ Status: Acute (4) GERD (gastroesophageal reflux disease) Status: Chronic Qualifiers: Esophagitis presence: without esophagitis Qualified Code(s): K21.9 - Gastro-esophageal reflux disease without esophagitis (5) Seizure disorder Status: Chronic (6) Cardiomyopathy Status: Chronic (7) Hyperlipidemia Status: Chronic Qualifiers: Hyperlipidemia type: mixed hyperlipidemia Qualified Code(s): E78.2 - Mixed hyperlipidemia (8) Hypertension Status: Chronic Qualifiers: Hypertension type: primary hypertension Qualified Code(s): I10 - Essential (primary) hypertension Core Measure Documentation - Palliative Care Palliative Care/ Comfort Measures: Not Applicable - Core Measures Any of the following diagnoses?: none Exam - Physical Exam Narrative exam: Not in cardiopulmonary distress. The patient appeared well nourished and normally developed. Vital signs as documented. Head exam is unremarkable. No scleral icterus . Neck is without jugular venous distension, thyromegaly, or carotid bruits. Lungs are clear to auscultation. Cardiac exam reveals regular rate and Rhythm. Abdominal exam reveals normal bowel sounds, nontender, no organomegaly. Extremities are nonedematous and both femoral and pedal pulses are normal. MULTIPLE NEEDLE STITCHER: Alert and oriented 3. No focal weakness. - Constitutional Vitals: Temp Pulse Resp BP Pulse Ox 97.9 F 71 16 129/82 100 02/10/21 07:28 02/10/21 07:28 02/10/21 07:28 02/10/21 07:28 02/10/21 07:28 Plan Activity: no restrictions Weight Bearing Status: Full Weight Bearing Diet: low cholesterol, low salt, diabetic Follow up with: PA MURILLO MD [Primary Care Provider] - 3-5 Days JEANIE WERNER MD [Staff Physician] - 10 Days Prescriptions: Hydroxyzine HCl [hydrOXYzine] 50 mg PO QHS #30 Aspirin [Aspirin BABY CHEW TAB] 81 mg PO QDAY #30 tab.chew diphenhydrAMINE [Benadryl CAP] 50 mg PO HS #30 cap Benztropine [Cogentin] 1 mg PO BID #60 tablet carvediloL [Coreg] 25 mg PO BID #60 tablet glipiZIDE [Glucotrol] 5 mg PO BID #60 tablet ISOSORBIDE MONOnitrate [Imdur ER] 60 mg PO QDAY #30 tablet levETIRAcetam [Keppra TAB] 500 mg PO BID #60 Furosemide [Lasix TAB] 40 mg PO QDAY PRN #30 tablet PRN Reason: Dyspnea Nitroglycerin [Nitrostat] 0.4 mg SL Q5M PRN #30 tab PRN Reason: Chest Pain Lisinopril [Zestril] 5 mg PO DAILY #30
--- NOTE | 2021-02-10 13:37 | Progress Note ---
Assessment and Plan - Patient Problems (1) Acute on chronic systolic (congestive) heart failure Current Visit: Yes Status: Acute Plan to address problem: Continue guideline directed medical therapy, patient plans to be more compliant with dietary salt restrictions, and also more compliant with his guideline directed medical therapy. He is stable for cardiac discharge to follow-up with his primary cash checker at [facility] in 3 to 5 days. Subjective Date of service: 02/10/21 Interval history: Patient looks and feels better, no further shortness of breath. He admits to poor compliance with dietary salt restriction, as the likely etiology of his current heart failure decompensation. Objective Vital Signs Temp Pulse Resp BP BP Pulse Ox 02/10/21 07:28 97.9 F 71 16 129/82 100 02/10/21 04:00 97.9 F 72 18 109/61 02/10/21 00:14 98 02/10/21 00:00 97.9 F 63 18 87/51 02/09/21 22:00 78 02/09/21 20:00 98.4 F 70 20 97/62 02/09/21 16:34 98.6 F 70 20 89/56 97 - Physical Examination General: Appears Well, No Apparent Distress HEENT: Positive: PERRL Neck: Positive: neck supple Cardiac: Positive: Reg Rate and Rhythm Lungs: Positive: Decreased Breath Sounds Neuro: Positive: Grossly Intact Abdomen: Positive: Soft Skin: Positive: Clear Extremities: Present: edema (Mild) - Labs and Meds Comprehensive Metabolic Panel 02/10/21 Range/Units 06:51 Sodium 140 (137-145) mmol/L Potassium 3.9 (3.6-5.0) mmol/L Chloride 99.4 (98-107) mmol/L Carbon Dioxide 34 H D (22-30) mmol/L BUN 13 (9-20) mg/dL Creatinine 1.0 (0.8-1.3) mg/dL Glucose 115 H (75-100) mg/dL Calcium 9.6 (8.4-10.2) mg/dL - Imaging and Cardiology EKG: report reviewed (Pacemaker rhythm no acute ST-T wave changes) Pacemaker: ventricular pacing w/capt
[2021-02-10] MEDS: hydrOXYzine HCL 25 MG TAB PO SCH (22:33)
[2021-02-10] MEDS: diphenhydrAMINE 25 MG CAP PO SCH (22:33)
== END 2021-02-10 23:45 | disposition home or self-care (01) ==
LOC: ED 10:40 → 4A 12:47
PROVIDERS: ADMIT Internal Medicine; ATTEND Internal Medicine
DX: I24.9 Acute ischemic heart disease, unspecified (principal); I11.0 Hypertensive heart disease with heart failure; I50.23 Acute on chronic systolic (congestive) heart failure; I25.10 Atherosclerotic heart disease of native coronary artery without angina pectoris; E11.9 Type 2 diabetes mellitus without complications; G40.909 Epilepsy, unspecified, not intractable, without status epilepticus; I42.9 Cardiomyopathy, unspecified; E87.70 Fluid overload, unspecified; K21.9 Gastro-esophageal reflux disease without esophagitis; Z95.810 Presence of automatic (implantable) cardiac defibrillator; Z86.73 Personal history of transient ischemic attack (TIA), and cerebral infarction without residual deficits; Z90.49 Acquired absence of other specified parts of digestive tract; Z79.899 Other long term (current) drug therapy; Z98.890 Other specified postprocedural states; Z79.82 Long term (current) use of aspirin
CPT/HCPCS: 36415; 71046; 71275; 80048; 80053; 82550; 83735; 83880; 84484; 85025; 85379; 85610; 93005; 96374; 96376; 97162; 99285; G0378; J1940; Q9967; Q0162

== ENCOUNTER 2021-03-16 18:17 | Observation (INO) | payer MEDICARE ==
--- NOTE | 2021-03-16 19:15 | Emergency Department Report ---
ED General Adult HPI - General Stated complaint: CHEST PAIN Time Seen by Provider: 03/16/21 18:58 Source: patient, EMS Limitations: No Limitations - History of Present Illness Initial comments: Patient presents to the emergency department the chief complaint of left-sided chest pain that started 2 to 3 hours ago. Patient denies any radiation of the chest pain but states is pressure-like in nature. Patient describes it as a heaviness. Patient has a history of a pacemaker defibrillator, [place], three-vessel CABG. EMS states on arrival the patient's blood pressure was 182/116 he was given 3 sublingual nitros and and 324 mg aspirin prior to arrival by EMS. Patient denies abdominal pain or headache. -: Sudden Radiation: non-radiation Severity scale (0 -10): 6 Quality: aching Consistency: constant Improves with: none Worsens with: none Associated Symptoms: denies other symptoms Treatments Prior to Arrival: none - Related Data Home Medications Medication Instructions Recorded Confirmed Last Taken Mirtazapine 15 mg PO HS 04/08/16 02/08/21 11/21/20 21:00 risperiDONE 2 mg PO QDAY 04/08/16 02/08/21 11/22/20 09:00 Dutasteride [Avodart] 0.5 mg PO DAILY 11/30/20 02/08/21 Unknown Mirtazapine [Remeron] 30 mg PO DAILY 11/30/20 02/08/21 Unknown Ondansetron [Zofran ODT TAB] 4 mg PO Q8HR 11/30/20 02/08/21 Unknown Pantoprazole [Protonix TAB] 20 mg PO QDAY 11/30/20 02/08/21 Unknown Previous Rx's Medication Instructions Recorded Last Taken Type Aspirin [Aspirin BABY CHEW TAB] 81 mg PO QDAY #30 tab.chew 02/10/21 Unknown Rx Benztropine [Cogentin] 1 mg PO BID #60 tablet 02/10/21 Unknown Rx Furosemide [Lasix TAB] 40 mg PO QDAY PRN #30 tablet 02/10/21 Unknown Rx Hydroxyzine HCl [hydrOXYzine] 50 mg PO QHS #30 02/10/21 Unknown Rx ISOSORBIDE MONOnitrate [Imdur ER] 60 mg PO QDAY #30 tablet 02/10/21 Unknown Rx Lisinopril [Zestril] 5 mg PO DAILY #30 02/10/21 Unknown Rx Nitroglycerin [Nitrostat] 0.4 mg SL Q5M PRN #30 tab 02/10/21 Unknown Rx carvediloL [Coreg] 25 mg PO BID #60 tablet 02/10/21 Unknown Rx diphenhydrAMINE [Benadryl CAP] 50 mg PO HS #30 cap 02/10/21 Unknown Rx glipiZIDE [Glucotrol] 5 mg PO BID #60 tablet 02/10/21 Unknown Rx levETIRAcetam [Keppra TAB] 500 mg PO BID #60 02/10/21 Unknown Rx Allergies Allergy/AdvReac Type Severity Reaction Status Date / Time No Known Allergies Allergy Verified 02/08/21 11:12 ED Review of Systems ROS: Stated complaint: CHEST PAIN Other details as noted in HPI Comment: All other systems reviewed and negative Constitutional: denies: chills, fever Eyes: denies: eye pain, eye discharge, vision change ENT: denies: ear pain, throat pain Respiratory: denies: cough, shortness of breath, wheezing Cardiovascular: chest pain. denies: palpitations Endocrine: no symptoms reported Gastrointestinal: denies: abdominal pain, nausea, diarrhea Genitourinary: denies: urgency, dysuria Musculoskeletal: denies: back pain, joint swelling, arthralgia Skin: denies: rash, lesions Neurological: denies: headache, weakness, paresthesias Psychiatric: denies: anxiety, depression Hematological/Lymphatic: denies: easy bleeding, easy bruising ED Past Medical Hx - Past Medical History Hx Hypertension: Yes Hx CVA: Yes Hx Heart Attack/AMI: Yes Hx Congestive Heart Failure: Yes Hx Diabetes: Yes Hx Seizures: Yes Hx Psychiatric Treatment: Yes (IP and OP tx, [place], [facility], [place]/ ANXIETY / DEPRESSION/schizophrenia) Hx Asthma: No Hx COPD: No Additional medical history: Cardiomyopathy. CAD with 50% LAD lesion. pacemaker - Surgical History Hx Coronary Stent: Yes Hx Open Heart Surgery: Yes Hx Pacemaker: Yes Hx Internal Defibrillator: Yes (pacemaker) Hx Appendectomy: Yes Additional Surgical History: R foot surgery /OPEN HEART - Social History Smoking Status: Never Smoker - Medications Home Medications: Home Medications Medication Instructions Recorded Confirmed Last Taken Type Mirtazapine 15 mg PO HS 04/08/16 02/08/21 11/21/20 21:00 History risperiDONE 2 mg PO QDAY 04/08/16 02/08/21 11/22/20 09:00 History Dutasteride [Avodart] 0.5 mg PO DAILY 11/30/20 02/08/21 Unknown History Mirtazapine [Remeron] 30 mg PO DAILY 11/30/20 02/08/21 Unknown History Ondansetron [Zofran ODT TAB] 4 mg PO Q8HR 11/30/20 02/08/21 Unknown History Pantoprazole [Protonix TAB] 20 mg PO QDAY 11/30/20 02/08/21 Unknown History Aspirin [Aspirin BABY CHEW TAB] 81 mg PO QDAY #30 tab.chew 02/10/21 Unknown Rx Benztropine [Cogentin] 1 mg PO BID #60 tablet 02/10/21 Unknown Rx Furosemide [Lasix TAB] 40 mg PO QDAY PRN #30 tablet 02/10/21 Unknown Rx Hydroxyzine HCl [hydrOXYzine] 50 mg PO QHS #30 02/10/21 Unknown Rx ISOSORBIDE MONOnitrate [Imdur ER] 60 mg PO QDAY #30 tablet 02/10/21 Unknown Rx Lisinopril [Zestril] 5 mg PO DAILY #30 02/10/21 Unknown Rx Nitroglycerin [Nitrostat] 0.4 mg SL Q5M PRN #30 tab 02/10/21 Unknown Rx carvediloL [Coreg] 25 mg PO BID #60 tablet 02/10/21 Unknown Rx diphenhydrAMINE [Benadryl CAP] 50 mg PO HS #30 cap 02/10/21 Unknown Rx glipiZIDE [Glucotrol] 5 mg PO BID #60 tablet 02/10/21 Unknown Rx levETIRAcetam [Keppra TAB] 500 mg PO BID #60 02/10/21 Unknown Rx ED Physical Exam - General General appearance: alert, in no apparent distress - Head Head exam: Present: atraumatic, normocephalic - Eye Eye exam: Present: normal appearance, PERRL, EOMI - ENT ENT exam: Present: mucous membranes moist - Neck Neck exam: Present: normal inspection - Respiratory Respiratory exam: Present: normal lung sounds bilaterally. Absent: respiratory distress - Cardiovascular Cardiovascular Exam: Present: regular rate, normal rhythm. Absent: systolic murmur, diastolic murmur, rubs, gallop - GI/Abdominal GI/Abdominal exam: Present: soft, normal bowel sounds. Absent: distended, tenderness - Rectal Rectal exam: Present: deferred - Extremities Exam Extremities exam: Present: normal inspection - Back Exam Back exam: Present: normal inspection - Neurological Exam Neurological exam: Present: alert, oriented X3, CN II-XII intact. Absent: motor sensory deficit - Psychiatric Psychiatric exam: Present: normal affect, normal mood - Skin Skin exam: Present: warm, dry, intact, normal color. Absent: rash ED Course Vital Signs 03/16/21 20:32 Temperature 97.8 F Pulse Rate 78 Respiratory 18 Rate Blood Pressure 146/96 [Left] O2 Sat by Pulse 99 Oximetry ED Medical Decision Making - Lab Data Result diagrams: 03/16/21 20:07 03/16/21 20:07 Lab Results 03/16/21 03/16/21 03/16/21 Range/Units 20:07 20:07 20:07 WBC 6.1 (4.5-11.0) K/mm3 RBC 5.53 H (3.65-5.03) M/mm3 Hgb 14.9 (11.8-15.2) gm/dl Hct 45.3 (35.5-45.6) % MCV 82 L (84-94) fl MCH 27 L (28-32) pg MCHC 33 (32-34) % RDW 14.1 (13.2-15.2) % Plt Count 182 (140-440) K/mm3 Lymph % (Auto) 21.7 (13.4-35.0) % [place] % (Auto) 7.5 H (0.0-7.3) % Eos % (Auto) 0.3 (0.0-4.3) % Baso % (Auto) 0.4 (0.0-1.8) % Lymph # (Auto) 1.3 (1.2-5.4) K/mm3 [place] # (Auto) 0.5 (0.0-0.8) K/mm3 Eos # (Auto) 0.0 (0.0-0.4) K/mm3 Baso # (Auto) 0.0 (0.0-0.1) K/mm3 Seg Neutrophils % 70.1 H (40.0-70.0) % Seg Neutrophils # 4.3 (1.8-7.7) K/mm3 PT 13.4 (12.2-14.9) Sec. INR 0.96 (0.87-1.13) APTT 28.4 (24.2-36.6) Sec. Sodium 139 (137-145) mmol/L Potassium 3.7 (3.6-5.0) mmol/L Chloride 104.9 (98-107) mmol/L Carbon Dioxide 22 (22-30) mmol/L Anion Gap 16 mmol/L BUN 10 (9-20) mg/dL Creatinine 0.9 (0.8-1.3) mg/dL Estimated GFR > 60 ml/min BUN/Creatinine Ratio 11 % Glucose 138 H (75-100) mg/dL Calcium 9.5 (8.4-10.2) mg/dL Total Bilirubin 0.70 (0.1-1.2) mg/dL AST 21 (5-40) units/L ALT 26 (7-56) units/L Alkaline Phosphatase 105 (35-129) units/L Troponin T < 0.010 (0.00-0.029) ng/mL NT-Pro-B Natriuret Pep (0-900) pg/mL Total Protein 7.1 (6.3-8.2) g/dL Albumin 4.0 (3.9-5) g/dL Albumin/Globulin Ratio 1.3 % Lipase (13-60) units/L 03/16/21 03/16/21 Range/Units 20:07 20:07 WBC (4.5-11.0) K/mm3 RBC (3.65-5.03) M/mm3 Hgb (11.8-15.2) gm/dl Hct (35.5-45.6) % MCV (84-94) fl MCH (28-32) pg MCHC (32-34) % RDW (13.2-15.2) % Plt Count (140-440) K/mm3 Lymph % (Auto) (13.4-35.0) % [place] % (Auto) (0.0-7.3) % Eos % (Auto) (0.0-4.3) % Baso % (Auto) (0.0-1.8) % Lymph # (Auto) (1.2-5.4) K/mm3 [place] # (Auto) (0.0-0.8) K/mm3 Eos # (Auto) (0.0-0.4) K/mm3 Baso # (Auto) (0.0-0.1) K/mm3 Seg Neutrophils % (40.0-70.0) % Seg Neutrophils # (1.8-7.7) K/mm3 PT (12.2-14.9) Sec. INR (0.87-1.13) APTT (24.2-36.6) Sec. Sodium (137-145) mmol/L Potassium (3.6-5.0) mmol/L Chloride (98-107) mmol/L Carbon Dioxide (22-30) mmol/L Anion Gap mmol/L BUN (9-20) mg/dL Creatinine (0.8-1.3) mg/dL Estimated GFR ml/min BUN/Creatinine Ratio % Glucose (75-100) mg/dL Calcium (8.4-10.2) mg/dL Total Bilirubin (0.1-1.2) mg/dL AST (5-40) units/L ALT (7-56) units/L Alkaline Phosphatase (35-129) units/L Troponin T (0.00-0.029) ng/mL NT-Pro-B Natriuret Pep 759.8 (0-900) pg/mL Total Protein (6.3-8.2) g/dL Albumin (3.9-5) g/dL Albumin/Globulin Ratio % Lipase 29 (13-60) units/L - EKG Data -: EKG Interpreted by Ca EKG shows normal: sinus rhythm Rate: normal - EKG Data Interpretation: other (Patient has lateral depressions in V5 and V6 similar to EKG on 02/08/2021) - Radiology Data Radiology results: report reviewed - Medical Decision Making Discussed plan of care with patient Nitropaste applied Critical care attestation.: If time is entered above; I have spent that time in minutes in the direct care of this critically ill patient, excluding procedure time. ED Disposition Clinical Impression: Chest pain Disposition: ADMITTED INPATIENT Is pt being admited?: Yes Does the pt Need Aspirin: No Condition: Fair Instructions: Nonspecific Chest Pain, Adult Additional Instructions: return if worse Referrals: PRIMARY CARE, [Primary Care Provider] - 3-5 Days Time of Disposition: 23:04 Heart Score - HEART Score History: Moderately suspicious EKG: Non-specific Age: > 65 Risk factors: > 3 risk factors or hx of atherosclerotic disease Troponin: < normal limit HEART Score: 6 - EKG Read Time Time EKG Completed: 00:00 EKG Read Time: 00:00
[2021-03-16 20:44] LABS: Alanine Aminotransferase 26 units/L (7-56); BUN/Creatinine Ratio 11; Blood Urea Nitrogen 10 mg/dL (9-20); Calcium 9.5 mg/dL (8.4-10.2); Hemolysis Index 12
[2021-03-16 20:59] LABS: Basophils % (Auto) 0.4 % (0.0-1.8); Eosinophils % (Auto) 0.3 % (0.0-4.3); Hematocrit 45.3 % (35.5-45.6); Hemoglobin 14.9 gm/dl (11.8-15.2); Lymphocytes # (Auto) 1.3 K/mm3 (1.2-5.4); Lymphocytes % (Auto) 21.7 % (13.4-35.0); Mean Corpuscular HGB Conc 33 % (32-34); Mean Corpuscular Volume 82 fl (84-94); Monocytes # (Auto) 0.5 K/mm3 (0.0-0.8); Monocytes % (Auto) 7.5 % (0.0-7.3); Platelet Count 182 K/mm3 (140-440); Red Blood Count 5.53 M/mm3 (3.65-5.03); Red Cell Distribution Width 14.1 % (13.2-15.2)
[2021-03-16 21:09] LABS: INR 0.96 (0.87-1.13)
[2021-03-16 21:10] LABS: Partial Thromboplastin Time 28.4 Sec. (24.2-36.6)
--- NOTE | 2021-03-16 21:10 | XRay Report ---
. XR chest 1V ap INDICATION / CLINICAL INFORMATION: Chest Pain. COMPARISON: 02/08/2021 FINDINGS: SUPPORT DEVICES: Stable, satisfactory device positioning. HEART /PULMONARY VASCULATURE: No significant abnormality. LUNGS / PLEURA: No significant pulmonary or pleural abnormality. No pneumothorax. ADDITIONAL FINDINGS: No significant additional findings. IMPRESSION: 1. No acute findings. Signer Name: Merrill Last MD Signed: 03/16/2021 9:06 PM Workstation Name: [id number]
[2021-03-16] MEDS ORDERED: NITROGLYCERIN 2% OINT 1 GM TP ONE (22:42)
[2021-03-16] MEDS ORDERED: traMADol 50 MG TAB PO PRN (23:20)
[2021-03-16] MEDS ORDERED: NITROGLYCERIN 0.4 MG TAB SUBL SL PRN (23:20)
[2021-03-16] MEDS ORDERED: MORPHINE 2 MG/1 ML INJ IV PRN ×2 (23:20)
[2021-03-16] MEDS ORDERED: ONDANSETRON 4 MG/2 ML INJ IV PRN (23:20)
[2021-03-16] MEDS ORDERED: DEXTROSE 50% IN WATER (25GM) 50 ML SYRINGE IV PRN (23:20)
[2021-03-16] MEDS ORDERED: ACETAMINOPHEN 325 MG TAB PO PRN ×2 (23:20)
[2021-03-16] MEDS ORDERED: MORPHINE 4 MG/1 ML INJ IV PRN (23:20)
[2021-03-16] MEDS ORDERED: MAGNESIUM HYDROXIDE (MOM) ORAL LIQD UDC PO PRN (23:20)
--- NOTE | 2021-03-16 23:33 | History and Physical Report ---
History of Present Illness Date of examination: 03/16/21 Date of admission: 03/16/2021 Chief complaint: Chest Pain History of present illness: 70-year-old -[place] male with known history of coronary artery disease with stent placement in the past, pacemaker/defibrillator placement and three- vessel CABG, diabetes mellitus and hyperlipidemia presents to the emergency room today complaining of left-sided chest pain which started about 2 to 3 hours prior to reporting to the emergency room. Pain felt like pressure and he has been no radiation. There is no no relieving or exacerbating factor. He denies any headache or dizziness denies any diaphoresis. Patient denies any nausea vomiting, no abdominal pain, no fever or chills. Denies any sick contacts and no recent travel. Denies any contact with anyone with COVID-19. Patient has had 2 doses of COVID-19 vaccination. En route to the hospital patient was given sublingual nitroglycerin and aspirin by EMS with some improvement in the chest pain. Blood pressure was said to be elevated with systolic in the 180s and diastolic in the low 100s. Evaluation in the emergency room today labs including troponin, chest x-ray and EKG shows no acute findings. Patient has been admitted for chest pain evaluation. Past History Past Medical History: heart failure, stroke, other (Psychiatrtric Treatment:Yes (IP and OP tx, [place], [facility], [place]/ ANXIETY / DEPRESS ION/schizophrenia),Cardiomyopathy. CAD with 50% LAD lesion. pacemaker) Past Surgical History: appendectomy, [facility], Other (Pacemaker, R foot surgery /OPEN HEART) Social history: no significant social history Family history: no significant family history Medications and Allergies Allergies Allergy/AdvReac Type Severity Reaction Status Date / Time No Known Allergies Allergy Verified 02/08/21 11:12 Home Medications Medication Instructions Recorded Confirmed Last Taken Type Dutasteride [Avodart] 0.5 mg PO DAILY 11/30/20 03/17/21 Unknown History Mirtazapine [Remeron] 30 mg PO QHS 11/30/20 03/16/21 Unknown History Pantoprazole [Protonix TAB] 20 mg PO QDAY 11/30/20 03/16/21 Unknown History Aspirin [Aspirin BABY CHEW TAB] 81 mg PO QDAY #30 tab.chew 02/10/21 03/17/21 Unknown Rx Benztropine [Cogentin] 1 mg PO BID #60 tablet 02/10/21 03/16/21 Unknown Rx Furosemide [Lasix TAB] 40 mg PO QDAY PRN #30 tablet 02/10/21 03/16/21 Unknown Rx ISOSORBIDE MONOnitrate [Imdur ER] 60 mg PO QDAY #30 tablet 02/10/21 03/16/21 Unknown Rx Lisinopril [Zestril] 5 mg PO DAILY #30 02/10/21 03/16/21 Unknown Rx Nitroglycerin [Nitrostat] 0.4 mg SL Q5M PRN #30 tab 02/10/21 03/17/21 Unknown Rx carvediloL [Coreg] 25 mg PO BID #60 tablet 02/10/21 03/16/21 Unknown Rx diphenhydrAMINE [Benadryl CAP] 50 mg PO HS #30 cap 02/10/21 03/16/21 Unknown Rx glipiZIDE [Glucotrol] 5 mg PO BID #60 tablet 02/10/21 03/16/21 Unknown Rx levETIRAcetam [Keppra TAB] 500 mg PO BID #60 02/10/21 03/16/21 Unknown Rx Omeprazole 20 mg PO DAILY 03/17/21 03/17/21 Unknown History Potassium Chloride [K-Dur] 10 meq PO QDAY 03/17/21 03/17/21 Unknown History Active Meds: Active Medications Acetaminophen (Acetaminophen 325 Mg Tab) 650 mg PO Q4H PRN PRN Reason: Pain MILD(1-3)/Fever >100.5/AGOSTO Acetaminophen (Acetaminophen 325 Mg Tab) 650 mg PO Q6H PRN PRN Reason: Pain, Mild (1-3) Aspirin (Aspirin Ec 325 Mg Tab) 325 mg PO QDAY AMBIKA Dextrose (Dextrose 50% In Water (25gm) 50 Ml Syringe) 50 ml IV Q30MIN PRN; Protocol PRN Reason: Hypoglycemia Enoxaparin Sodium (Enoxaparin 40 Mg/0.4 Ml Inj) 40 mg SUB-Q QDAY@2200 AMBIKA; Protocol Insulin Human Regular (Insulin Regular, Human 100 Units/1 Ml) 0 units SUB-Q ACHS AMBIKA; Protocol Magnesium Hydroxide (Magnesium Hydroxide (Mom) Oral Liqd Udc) 30 ml PO Q4H PRN PRN Reason: Constipation Morphine Sulfate (Morphine 2 Mg/1 Ml Inj) 2 mg IV Q4H PRN PRN Reason: Pain, Moderate (4-6) Morphine Sulfate (Morphine 4 Mg/1 Ml Inj) 4 mg IV Q4H PRN PRN Reason: Pain , Severe (7-10) Morphine Sulfate (Morphine 4 Mg/1 Ml Inj) 2 mg IV Q5MIN PRN PRN Reason: Chest Pain Nitroglycerin (Nitroglycerin 0.4 Mg Tab Subl) 0.4 mg SL Q5M PRN PRN Reason: Chest Pain Ondansetron HCl (Ondansetron 4 Mg/2 Ml Inj) 4 mg IV Q8H PRN PRN Reason: Nausea And Vomiting Sodium Chloride (Sodium Chloride 0.9% 10 Ml Flush Syringe) 10 ml IV BID AMBIKA Sodium Chloride (Sodium Chloride 0.9% 10 Ml Flush Syringe) 10 ml IV PRN PRN PRN Reason: LINE FLUSH Sodium Chloride (Sodium Chloride 0.9% 10 Ml Flush Syringe) 10 ml IV PRN PRN PRN Reason: LINE FLUSH Tramadol HCl (Tramadol 50 Mg Tab) 50 mg PO Q6H PRN PRN Reason: Pain, Moderate (4-6) Review of Systems Constitutional: no fever, no chills Ears, nose, mouth and throat: no nasal congestion, no sore throat Cardiovascular: chest pain, no palpitations Respiratory: no cough, no shortness of breath Gastrointestinal: no abdominal pain, no nausea, no vomiting, no diarrhea Genitourinary Male: no dysuria, no hematuria, no nocturia Musculoskeletal: no neck pain, no low back pain Integumentary: no rash, no pruritis Neurological: no headaches, no confusion Psychiatric: no anxiety, no depression Endocrine: no polydipsia, no polyuria, no nocturia Exam - Constitutional Vitals: Temp Pulse Resp BP Pulse Ox 97.8 F 78 18 146/96 99 03/16/21 20:32 03/16/21 20:32 03/16/21 20:32 03/16/21 20:32 03/16/21 20:32 General appearance: Present: no acute distress, well-nourished - EENT Eyes: Present: PERRL, EOM intact. Absent: scleral icterus ENT: hearing intact, clear oral mucosa, dentition normal - Neck Neck: Present: supple, normal ROM - Respiratory Respiratory effort: normal Respiratory: bilateral: CTA - Cardiovascular Rhythm: regular Heart Sounds: Present: S1 & S2. Absent: gallop, systolic murmur, diastolic murmur, rub, click - Extremities Extremities: no ischemia, pulses intact, pulses symmetrical, No edema, normal temperature, normal color, Full ROM Peripheral Pulses: within normal limits - Abdominal General gastrointestinal: Present: soft, non-distended, normal bowel sounds. Absent: mass - Integumentary Integumentary: Present: clear, warm, dry. Absent: rash - Musculoskeletal Musculoskeletal: strength equal bilaterally - Psychiatric Psychiatric: appropriate mood/affect, intact judgment & insight, memory intact, cooperative - Neurologic Neurologic: CNII-XII intact, no focal deficits, moves all extremities HEART Score - HEART Score EKG: Non-specific Age: > 65 Risk factors: > 3 risk factors or hx of atherosclerotic disease Troponin: Troponin T < 0.010 ng/mL (0.00-0.029) 03/16/21 20:07 Troponin: < normal limit Results - Labs CBC & Chem 7: 03/16/21 20:07 03/16/21 20:07 Labs: Abnormal lab results 03/16/21 03/16/21 Range/Units 20:07 20:07 RBC 5.53 H (3.65-5.03) M/mm3 MCV 82 L (84-94) fl MCH 27 L (28-32) pg Person % (Auto) 7.5 H (0.0-7.3) % Seg Neutrophils % 70.1 H (40.0-70.0) % Glucose 138 H (75-100) mg/dL Assessment and Plan - Patient Problems (1) Acute chest pain Current Visit: No Status: Acute Plan to address problem: Patient admitted and placed on telemetry. We will place on daily aspirin, sublingual nitroglycerin and IV morphine as needed for chest pain. We will trend serial cardiac enzymes. Consult placed to cardiology for evaluation and recommendations. (2) T2DM (type 2 diabetes mellitus) Current Visit: No Status: Chronic Qualifiers: Diabetes mellitus alf insulin use: without alf use Plan to address problem: Patient placed on sliding scale insulin. We will monitor Accu-Cheks. (3) Hyperlipidemia Current Visit: No Status: Chronic Plan to address problem: We will resume routine home medications and monitor lipid profile. (4) Schizophrenia Current Visit: No Status: Acute Plan to address problem: Stable. . We will resume routine home medications once reconciled. (5) DVT prophylaxis Current Visit: No Status: Acute Plan to address problem: Patient placed on subcutaneous Lovenox. (6) Full code status Current Visit: No Status: Acute Plan to address problem: Patient is full code.
[2021-03-17] MEDS ORDERED: INSULIN REGULAR, HUMAN 100 UNITS/1 ML SUB-Q SCH (07:30)
--- NOTE | 2021-03-17 07:59 | Discharge Summary ---
Providers - Providers Date of Admission: 03/16/21 23:20 Date of discharge: 03/17/21 Attending physician: SHONDA MANLEY 03/16/21 Consult to Cardiac Rehabilitation [CONS] Routine Reason For Exam: Phase I 03/16/21 23:20 Consult to Cardiology [CONS] Routine Consulting Provider: JEANIE WERNER Reason For Exam: Chest pain Consult to Dietitian/Nutrition [CONS] Routine Physician Instructions: Reason For Exam: Reason for Consult: Diet education Primary care physician: FELT HAT STEAMER Hospitalization Reason for admission: cp Condition: Fair Hospital course: 70-year-old -[place] male with known history of coronary artery disease with stent placement in the past, pacemaker/defibrillator placement and three- vessel CABG, diabetes mellitus and hyperlipidemia presents to the emergency room today complaining of left-sided chest pain which started about 2 to 3 hours prior to reporting to the emergency room. En route to the hospital patient was given sublingual nitroglycerin and aspirin by EMS with some improvement in the chest pain. Blood pressure was said to be elevated with systolic in the 180s and diastolic in the low 100s. Evaluation in the emergency room revealed labs including troponin found to be negative, chest x-ray with no acute finding and EKG shows no acute findings. Patient was admitted with diagnosis of chest pain. Cardiology performed consultation and reports patient's essential presentation is with 3 days of atypical chest pain associated with increased stress. Francine grande attributes his stress to his living situation with his sister. Patient had no reports of AICD discharge. Troponin measurement was found to be normal. Chest x-ray is negative and his ECG is a ventricular paced rhythm. Cardiology recommended continue medical therapy for ischemic cardiomyopathy and coronary artery disease. No further cardiac work-up indicated. Cardiology recommended discharge. Dedicated discharge time 32 minutes. Disposition: HOME / SELF CARE / HOMELESS Final Discharge Diagnosis (Prints w/discharge instructions): Chest pain, GERD, diabetes mellitus type 2, hyperlipidemia, schizophrenia Core Measure Documentation - Palliative Care Palliative Care/ Comfort Measures: Not Applicable - Core Measures Any of the following diagnoses?: none Exam - Constitutional Vitals: Temp Pulse Resp BP Pulse Ox 97.8 F 72 17 136/82 100 03/16/21 20:32 03/17/21 07:08 03/17/21 07:01 03/17/21 07:08 03/17/21 07:01 General appearance: Present: no acute distress, well-nourished - EENT Eyes: Present: PERRL ENT: hearing intact, clear oral mucosa - Neck Neck: Present: supple, normal ROM - Respiratory Respiratory effort: normal Respiratory: bilateral: CTA - Cardiovascular Heart Sounds: Present: S1 & S2. Absent: rub, click - Extremities Extremities: pulses symmetrical, No edema Peripheral Pulses: within normal limits - Abdominal General gastrointestinal: Present: soft, non-tender, non-distended, normal bowel sounds Male genitourinary: Present: normal - Integumentary Integumentary: Present: clear, warm, dry - Musculoskeletal Musculoskeletal: gait normal, strength equal bilaterally - Psychiatric Psychiatric: appropriate mood/affect, intact judgment & insight - Neurologic Neurologic: CNII-XII intact, moves all extremities Plan Activity: advance as tolerated Weight Bearing Status: Weight Bear as Tolerated Follow up with: PRIMARY CARE,MD [Primary Care Provider] - 3-5 Days Prescriptions: Aspirin [Aspirin BABY CHEW TAB] 81 mg PO QDAY #30 tab.chew Dutasteride [Avodart] 0.5 mg PO DAILY #10 cap diphenhydrAMINE [Benadryl CAP] 50 mg PO HS #30 cap Benztropine [Cogentin] 1 mg PO BID #60 tablet carvediloL [Coreg] 25 mg PO BID #60 tablet glipiZIDE [Glucotrol] 5 mg PO BID #60 tablet ISOSORBIDE MONOnitrate [Imdur ER] 60 mg PO QDAY #30 tablet Potassium Chloride [K-Dur] 10 meq PO QDAY #10 levETIRAcetam [Keppra TAB] 500 mg PO BID #60 Furosemide [Lasix TAB] 40 mg PO QDAY PRN #30 tablet PRN Reason: Dyspnea Nitroglycerin [Nitrostat] 0.4 mg SL Q5M PRN #30 tab PRN Reason: Chest Pain Omeprazole 20 mg PO DAILY #10 Pantoprazole [Protonix TAB] 20 mg PO QDAY #10 Mirtazapine [Remeron] 30 mg PO QHS #10 Lisinopril [Zestril] 5 mg PO DAILY #30
[2021-03-17] MEDS ORDERED: REGADENOSON 0.4 MG/5 ML INJ IV ONE (08:18)
[2021-03-17] MEDS ORDERED: NITROGLYCERIN 0.4 MG TAB SUBL SL PRN (08:30)
[2021-03-17] MEDS ORDERED: FUROSEMIDE 40 MG TAB PO PRN (08:30)
--- NOTE | 2021-03-17 08:59 | Consultation ---
<AMBER WAY - Last Filed: 03/17/21 10:17> History of Present Illness Consult date: 03/17/21 Consult reason: chest pain History of present illness: 70-year old M with ischemic cardiomyopathy, coronary artery disease with bypass grafting. In 2016, he underwent four-vessel coronary artery bypass at [facility]. There was FRITZ to LAD, SVG to posterior descending artery, sequential SVG side to side to the diagonal, end to side to the mid obtuse marginal. He also has an indwelling internal cardiac defibrillator ([employer]) for primary presention. 3 months ago he underwent a lexiscan thallium stress test that reports no ischemia. An echocardiogram showed a persistent dilated cardiomyopathy, ejection fraction 15-20%. He presents to this hospital with 3 days of atypical chest pain associated with increased stress. Denies shortness of breath, and denies palpitations. There is no lower extremity edema. No report os AICD discharge. Troponin measurement is normal. Chest x-ray is negative and his ECG is a ventricular paced rhythm. Cardiology consultation was requested for chest pain. Past History Past Medical History: CAD, heart failure, stroke, other (Psychiatrtric Treatment:Yes (IP and OP tx, [facility], [facility], [place]/ ANXIETY / DEPRESSION/schizophrenia)) Past Surgical History: appendectomy, CABG, PTCA, Other (ICD, R foot surgery ) Social history: no significant social history Family history: no significant family history Medications and Allergies Allergies Allergy/AdvReac Type Severity Reaction Status Date / Time No Known Allergies Allergy Verified 02/08/21 11:12 Home Medications Medication Instructions Recorded Confirmed Last Taken Type Aspirin [Aspirin BABY CHEW TAB] 81 mg PO QDAY #30 tab.chew 03/17/21 Unknown Rx Benztropine [Cogentin] 1 mg PO BID #60 tablet 03/17/21 Unknown Rx Dutasteride [Avodart] 0.5 mg PO DAILY #10 cap 03/17/21 Unknown Rx Furosemide [Lasix TAB] 40 mg PO QDAY PRN #30 tablet 03/17/21 Unknown Rx ISOSORBIDE MONOnitrate [Imdur ER] 60 mg PO QDAY #30 tablet 03/17/21 Unknown Rx Lisinopril [Zestril] 5 mg PO DAILY #30 03/17/21 Unknown Rx Mirtazapine [Remeron] 30 mg PO QHS #10 03/17/21 Unknown Rx Nitroglycerin [Nitrostat] 0.4 mg SL Q5M PRN #30 tab 03/17/21 Unknown Rx Omeprazole 20 mg PO DAILY #10 03/17/21 Unknown Rx Pantoprazole [Protonix TAB] 20 mg PO QDAY #10 03/17/21 Unknown Rx Potassium Chloride [K-Dur] 10 meq PO QDAY #10 03/17/21 Unknown Rx carvediloL [Coreg] 25 mg PO BID #60 tablet 03/17/21 Unknown Rx diphenhydrAMINE [Benadryl CAP] 50 mg PO HS #30 cap 03/17/21 Unknown Rx glipiZIDE [Glucotrol] 5 mg PO BID #60 tablet 03/17/21 Unknown Rx levETIRAcetam [Keppra TAB] 500 mg PO BID #60 03/17/21 Unknown Rx Active Meds: Active Medications Acetaminophen (Acetaminophen 325 Mg Tab) 650 mg PO Q4H PRN PRN Reason: Pain MILD(1-3)/Fever >100.5/AGOSTO Aspirin (Aspirin 81 Mg Tab Chew) 81 mg PO QDAY [facility] Benztropine Mesylate (Benztropine 1 Mg Tab) 1 mg PO BID AMBIKA Carvedilol (Carvedilol 25 Mg Tab) 25 mg PO BID [facility] Dextrose (Dextrose 50% In Water (25gm) 50 Ml Syringe) 0 ml IV Q30MIN PRN; Protocol PRN Reason: Hypoglycemia Diphenhydramine HCl (Diphenhydramine 50 Mg Cap) 50 mg PO HS [facility] Enoxaparin Sodium (Enoxaparin 40 Mg/0.4 Ml Inj) 40 mg SUB-Q QDAY@2200 [facility]; Protocol Furosemide (Furosemide 40 Mg Tab) 40 mg PO QDAY PRN PRN Reason: Dyspnea Glipizide (Glipizide 5 Mg Tab) 5 mg PO BIDDIAB [facility] Insulin Human Regular (Insulin Regular, Human 100 Units/1 Ml) 0 units SUB-Q ACHS [facility]; Protocol Last Admin: 03/17/21 08:39 Dose: Not Given Documented by: Isosorbide Mononitrate (Isosorbide Mononitrate Er 60 Mg Tab) 60 mg PO QDAY [facility] Levetiracetam (Levetiracetam 500 Mg Tab) 500 mg PO BID [facility] Lisinopril (Lisinopril 5 Mg Tab) 5 mg PO DAILY [facility] Magnesium Hydroxide (Magnesium Hydroxide (Mom) Oral Liqd Udc) 30 ml PO Q4H PRN PRN Reason: Constipation Mirtazapine (Mirtazapine 30 Mg Tab) 30 mg PO QHS [facility] Miscellaneous Medication (Dutasteride [Avodart]) 0.5 mg PO DAILY [facility] Miscellaneous Medication (Omeprazole [Omeprazole]) 20 mg PO DAILY [facility] Morphine Sulfate (Morphine 2 Mg/1 Ml Inj) 2 mg IV Q4H PRN PRN Reason: Pain, Moderate (4-6) Last Admin: 03/17/21 03:08 Dose: 2 mg Documented by: Morphine Sulfate (Morphine 4 Mg/1 Ml Inj) 4 mg IV Q4H PRN PRN Reason: Pain , Severe (7-10) Morphine Sulfate (Morphine 2 Mg/1 Ml Inj) 2 mg IV Q5MIN PRN PRN Reason: Chest Pain Nitroglycerin (Nitroglycerin 0.4 Mg Tab Subl) 0.4 mg SL Q5M PRN PRN Reason: Chest Pain Ondansetron HCl (Ondansetron 4 Mg/2 Ml Inj) 4 mg IV Q8H PRN PRN Reason: Nausea And Vomiting Pantoprazole Sodium (Pantoprazole 20 Mg Tab) 20 mg PO QDAC [facility] Potassium Chloride (Potassium Chloride Er 10 Meq Tab) 10 meq PO QDAY AMBIKA Sodium Chloride (Sodium Chloride 0.9% 10 Ml Flush Syringe) 10 ml IV BID AMBIKA Sodium Chloride (Sodium Chloride 0.9% 10 Ml Flush Syringe) 10 ml IV PRN PRN PRN Reason: LINE FLUSH Tramadol HCl (Tramadol 50 Mg Tab) 50 mg PO Q6H PRN PRN Reason: Pain, Moderate (4-6) Review of Systems Cardiovascular: chest pain, no palpitations, no rapid/irregular heart beat, no syncope, no shortness of breath Physical Examination Vital Signs Temp Pulse Resp BP Pulse Ox 97.8 F 78 18 146/96 99 03/16/21 20:32 03/16/21 20:32 03/16/21 20:32 03/16/21 20:32 03/16/21 20:32 General appearance: no acute distress HEENT: Positive: PERRL Neck: Positive: trachea midline Cardiac: Positive: Other (v-paced) Lungs: Positive: Normal Breath Sounds Neuro: Positive: Grossly Intact Extremities: Absent: edema Results 03/16/21 20:07 03/16/21 20:07 Cardiac Enzymes 03/16/21 Range/Units 20:07 AST 21 (5-40) units/L Coagulation 03/16/21 Range/Units 20:07 PT 13.4 (12.2-14.9) Sec. INR 0.96 (0.87-1.13) APTT 28.4 (24.2-36.6) Sec. CBC 03/16/21 Range/Units 20:07 WBC 6.1 (4.5-11.0) K/mm3 RBC 5.53 H (3.65-5.03) M/mm3 Hgb 14.9 (11.8-15.2) gm/dl Hct 45.3 (35.5-45.6) % Plt Count 182 (140-440) K/mm3 Lymph # (Auto) 1.3 (1.2-5.4) K/mm3 [place] # (Auto) 0.5 (0.0-0.8) K/mm3 Eos # (Auto) 0.0 (0.0-0.4) K/mm3 Baso # (Auto) 0.0 (0.0-0.1) K/mm3 Comprehensive Metabolic Panel 03/16/21 Range/Units 20:07 Sodium 139 (137-145) mmol/L Potassium 3.7 (3.6-5.0) mmol/L Chloride 104.9 (98-107) mmol/L Carbon Dioxide 22 (22-30) mmol/L BUN 10 (9-20) mg/dL Creatinine 0.9 (0.8-1.3) mg/dL Glucose 138 H (75-100) mg/dL Calcium 9.5 (8.4-10.2) mg/dL AST 21 (5-40) units/L ALT 26 (7-56) units/L Alkaline Phosphatase 105 (35-129) units/L Total Protein 7.1 (6.3-8.2) g/dL Albumin 4.0 (3.9-5) g/dL Assessment and Plan Atypical chest pain 10/2020 Lexiscan thallium stress test reports no reversible ischemia 10/2020 Echo showed persistent dilated cardiomyopathy, ejection fraction 15- 20%. Hx of coronary artery disease s/p 4V bypass surgery at [facility] Hx of ischemic cardiomyopathy Presence of internal cardiac defibrillator ([employer]) Recommendations: Continue medical therapy for ischemic cardiomyopathy and coronary artery disease. No cardiac workup indicated. Stable cardiac ferrell for discharge. <FATOUMATA FUNEZ - Last Filed: 03/21/21 07:18> History of Present Illness History of present illness: I SAW THIS PT & AGREE WITH THE Dx & Tx PLAN. Physical Examination Vital Signs Temp Pulse Resp BP Pulse Ox 97.8 F 78 18 146/96 99 03/16/21 20:32 03/16/21 20:32 03/16/21 20:32 03/16/21 20:32 03/16/21 20:32 Results 03/17/21 09:42 03/17/21 09:42
[2021-03-17] MEDS ORDERED: glipiZIDE 5 MG TAB PO SCH (09:00)
[2021-03-17] MEDS ORDERED: DUTASTERIDE 0.5 MG PO SCH (10:00)
[2021-03-17] MEDS ORDERED: NON-FORMULARY EACH (Omeprazole [Omeprazole] 20 MG Capsule.Dr) PO SCH (10:00)
[2021-03-17] MEDS ORDERED: ASPIRIN EC 325 MG TAB PO SCH (10:00)
[2021-03-17] MEDS ORDERED: PANTOPRAZOLE 20 MG TAB PO SCH (10:00)
[2021-03-17] MEDS ORDERED: carvediloL 25 MG TAB PO SCH (10:00)
[2021-03-17] MEDS ORDERED: LISINOPRIL 5 MG TAB PO SCH (10:00)
[2021-03-17] MEDS ORDERED: BENZTROPINE 1 MG TAB PO SCH (10:00)
[2021-03-17] MEDS ORDERED: levETIRAcetam 500 MG TAB PO SCH (10:00)
[2021-03-17] MEDS ORDERED: ASPIRIN 81 MG TAB CHEW PO SCH (10:00)
--- NOTE | 2021-03-17 10:18 | Electrocardiograph Report ---
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
[2021-03-17 10:29] LABS: Basophils % (Auto) 0.5 % (0.0-1.8); Eosinophils # (Auto) 0.1 K/mm3 (0.0-0.4); Eosinophils % (Auto) 1.2 % (0.0-4.3); Lymphocytes # (Auto) 1.4 K/mm3 (1.2-5.4); Lymphocytes % (Auto) 27.3 % (13.4-35.0); Mean Corpuscular HGB Conc 33 % (32-34); Mean Corpuscular Volume 80 fl (84-94); Monocytes # (Auto) 0.5 K/mm3 (0.0-0.8); Monocytes % (Auto) 9.9 % (0.0-7.3); Platelet Count 173 K/mm3 (140-440); Red Blood Count 5.22 M/mm3 (3.65-5.03); Red Cell Distribution Width 14.4 % (13.2-15.2)
[2021-03-17 10:50] LABS: BUN/Creatinine Ratio 16; Blood Urea Nitrogen 13 mg/dL (9-20); Calcium 9.8 mg/dL (8.4-10.2); Hemolysis Index 3
[2021-03-17] MEDS ORDERED: POTASSIUM CHLORIDE ER 10 MEQ TAB PO SCH (11:00)
[2021-03-17 11:18] VITALS: BP 160/84
[2021-03-17] MEDS ORDERED: ENOXAPARIN 40 MG/0.4 ML INJ SUB-Q SCH (22:00)
[2021-03-17] MEDS ORDERED: MIRTAZAPINE 30 MG TAB PO SCH (22:00)
[2021-03-17] MEDS ORDERED: diphenhydrAMINE 50 MG CAP PO SCH (22:00)
== END 2021-03-17 10:45 | disposition home or self-care (01) ==
LOC: ED 18:17 → 4A 23:20
PROVIDERS: ADMIT Internal Medicine Geriatric Medicine; ATTEND Hospitalist
DX: R07.89 Other chest pain (principal); E11.9 Type 2 diabetes mellitus without complications; E78.5 Hyperlipidemia, unspecified; F20.9 Schizophrenia, unspecified; I11.0 Hypertensive heart disease with heart failure; I50.9 Heart failure, unspecified; I25.10 Atherosclerotic heart disease of native coronary artery without angina pectoris; F41.9 Anxiety disorder, unspecified; F32.9 Major depressive disorder, single episode, unspecified; I42.9 Cardiomyopathy, unspecified; E78.2 Mixed hyperlipidemia; Z95.0 Presence of cardiac pacemaker; Z90.49 Acquired absence of other specified parts of digestive tract; Z79.899 Other long term (current) drug therapy; Z98.890 Other specified postprocedural states; Z79.82 Long term (current) use of aspirin
CPT/HCPCS: 36415; 71045; 80048; 80053; 82962; 83690; 83880; 84484; 85025; 85610; 85730; 93005; 96374; 99285; G0378; J2270